=== PATIENT | male | born 1945 | race Caucasian/White ===

== ENCOUNTER 2017-06-09 01:19 | Inpatient (IN) | payer OTHER, MEDICARE ==
[2017-06-09] VITALS (8 sets, daily range): BP systolic 146–192; BP diastolic 84–109; PULSE 96–111; RESP 16–28; TEMP 97.8–99.2; O2SAT 94–97
[~2017-06-09] VITALS: Ht 167.6 cm; Wt 74.5 kg
[~2017-06-09 01:19] MED LIST: FLUMAZENIL 0.5 MG/5 ML VIAL IV PUSH PRN; LORazepam 2 MG TAB PO PRN; LORazepam 2 MG/ML VIAL IV PUSH PRN; NALOXONE HCL 0.4 MG/ML AMP IV PRN; SODIUM CHLORIDE 0.9% FLUSH 10 ML FLUSH IV FLUSH PRN
[2017-06-09] MEDS: MORPHINE SULFATE 4 MG/ML INJ IV PUSH PRN ×3 (02:34→17:53)
[2017-06-09] MEDS: NS + KCL 20 MEQ INJ 1,000 ML IV SCH (02:35)
[2017-06-09] MEDS: PIPERACIL-TAZO 3.375 GM PREMIX 50 ML IV SCH ×3 (06:35→17:36)
--- NOTE | 2017-06-09 08:59 | PD.CAR.PN ---
CVT Progress Note Subjective/Hospital Course: Referral received Full consult TF J Objective: Vital Signs Date Time Temp Pulse Resp B/P Pulse Ox O2 Delivery O2 Flow Rate FiO2 06/09/17 03:52 98.7 99 18 185/99 95 06/09/17 02:53 18 06/09/17 01:56 98.1 98 18 184/84 97 Trinh Enrique MD Jun 09, 2017 08:59
[2017-06-09] MEDS: SODIUM CHLORIDE 0.9% FLUSH 10 ML FLUSH IV FLUSH SCH ×2 (09:00→21:00)
[2017-06-09] MEDS: LORazepam 1 MG TAB PO PRN ×2 (09:37→17:52)
[2017-06-09] MEDS ORDERED: MORPHINE SULFATE 4 MG/ML INJ IV PUSH ONE (12:30)
[2017-06-09 12:44] LABS: BLOOD, URINE NEG (NEG); GLUCOSE,URINE NEG (NEG); KETONE, URINE 40 mg/dL (NEG); NITRITE,URINE NEG (NEG); PH, URINE 5.5 (5.0-8.5)
[2017-06-09 12:49] LABS: URINE COLOR AMBER (YELLW/STRAW)
[2017-06-09 12:51] LABS: COMMENT (UR) CULT NOT INDICATED; CULTURE IF INDICATED CULT NOT INDICATED
--- NOTE | 2017-06-09 13:18 | PD.CONS ---
HPI History of Present Illness This is a 72 year old male who presented to the [facility] for evaluation of abdominal pain. This began suddenly the day before yesterday and has progressively been worsening. He describes this as a sharp pain in his lower abdomen, more so on the right side. It does radiate to his back. He did not initially have any nausea or vomiting, but states that he did have an episode of vomiting earlier this am, nonbloody. He denies any nausea or vomiting. He denies any diarrhea, but states that he had small liquid stool. He has not had any rectal bleeding. He denies any fevers or chills. He denies any weight loss. He denies any heartburn or reflux. He has never had an egd or colonoscopy in the past. CT of the abdomen and pelvis with IV contrast (06/08/17)-----> Multifocal inflammatory changes of the right lower quadrant. There is wall thickening and adjacent inflammatory changes of the mid sigmiod colon. Most likely etiology for this finding is diverticulitis. Epicenter of inflammation there is either a prominent diverticulum or small abscess. Neoplasm also in the differential diagnosis. Circumferential wall thickening and prominent inflammatory changes are also seen at the distal ileum 10 cm proximal to the ileocecal valve. Differential diagnosis is infection and inflammatory bowel disease. Peripheral gas at the dependent portions of the cecum and transverse colon suggesting pseudo-pneumatosis of gas trapped between luminal fluid and the colon wall. No evidence of free air. No portal venous gas. Marked wall thickening of the distal esophagus. He was transferred to [facility]. He has been started on antibiotics and evaluated by GS, who requested GI evaluation. Of note, he denies any prior episodes of diverticulitis in the past. He does eat a lot of nuts. He does drink 6-7 beers per day. (Deb Bhandari) PFSH Past Medical History Hx cataracts Past Surgical History Cataract surgery (Deb Bhandari) Coded Allergies: Cultivated Oat Pollen (Verified Allergy, Severe, 06/08/17) Medications Allergies Coded Allergies Type Severity Reaction Last Updated Verified Cultivated Oat Pollen Allergy Severe 06/08/17 Yes Active Scripts Medications Dose Route/Sig Days Date Category No Active Prescriptions or Reported Medications Rx Family History No family hx of esophageal, gastric, or colorectal cancer. Social History Drinks 6-7 beers per day No tobacco use (+) MJ use. (Deb Bhandari APRIL) Review of Systems Constitutional: DENIES: Fever, Weight loss, Chills, Change in appetite Respiratory: DENIES: Cough Cardiovascular: DENIES: Chest pain Gastrointestinal: COMPLAINS OF: Abdominal pain, Nausea, Vomiting, DENIES: Black stools, Bloody stools, Constipation, Diarrhea, Heartburn, Hematemesis Genitourinary: COMPLAINS OF: Dysuria, DENIES: Urinary frequency, Urinary incontinence, Urgency Musculoskeletal: DENIES: Joint pain Integumentary: DENIES: Rash Neurologic: DENIES: Headache Psychiatric: DENIES: Confusion (BhandariDeb Idalia CHEN) GI Exam Vitals I&O Vital Signs Date Time Temp Pulse Resp B/P Pulse Ox O2 Delivery O2 Flow Rate FiO2 06/09/17 12:23 99 06/09/17 09:22 98.5 96 18 192/103 94 06/09/17 03:52 98.7 99 18 185/99 95 06/09/17 02:53 18 06/09/17 01:56 98.1 98 18 184/84 97 I/O 06/08/17 06/08/17 06/08/17 06/09/17 06/09/17 06/09/17 07:00 15:00 23:00 07:00 15:00 23:00 Intake Total 120 ml 500 ml Output Total 200 ml Balance -80 ml 500 ml Intake Oral 120 ml IV Total 500 ml Output Urine Total 200 ml # Voids 1 # Bowel Movements [address] of the abdomen and pelvis with IV contrast (06/08/17)-----> Multifocal inflammatory changes of the right lower quadrant. There is wall thickening and adjacent inflammatory changes of the mid sigmiod colon. Most likely etiology for this finding is diverticulitis. Epicenter of inflammation there is either a prominent diverticulum or small abscess. Neoplasm also in the differential diagnosis. Circumferential wall thickening and prominent inflammatory changes are also seen at the distal ileum 10 cm proximal to the ileocecal valve. Differential diagnosis is infection and inflammatory bowel disease. Peripheral gas at the dependent portions of the cecum and transverse colon suggesting pseudo-pneumatosis of gas trapped between luminal fluid and the colon wall. No evidence of free air. No portal venous gas. Marked wall thickening of the distal esophagus. Laboratory Test 06/09/17 11:45 Urine Color PASTOR Urine Turbidity CLEAR Urine pH 5.5 Urine Specific [place] 1.034 Urine Protein 30 mg/dL Urine Glucose (UA) NEG mg/dL Urine Ketones 40 mg/dL Urine Occult Blood NEG Urine Nitrite NEG Urine Bilirubin NEG Urine Urobilinogen 2.0 MG/DL Urine Leukocyte Esterase NEG Urine RBC 1 /hpf Urine WBC 1 /hpf Microscopic Urinalysis Comment CULT NOT INDICATED Physical Examination HEENT: Normocephalic; atraumatic; no jaundice. CHEST: Resp. even and unlabored, diminished bases CARDIAC: RRR ABDOMEN: Soft, nondistended, mild to mod tenderness lower abdomen; no hepatosplenomegaly; bowel sounds are present in all four quadrants. EXTREMITIES: No clubbing, cyanosis, or edema. SKIN: Normal; no rash; no jaundice. LPN OR MEDICAL ASSISTANT: No focal deficits; alert and oriented times three. (Deb Bhandari) Assessment and Plan Plan ASSESSMENT: - Abdominal pain with abnormal imaging consistent with probable acute diverticulitis. No prior episodes of diverticulitis, no hx of egd/colonoscopy. CT of the abdomen and pelvis with IV contrast (06/08/17)-----> Multifocal inflammatory changes of the right lower quadrant. There is wall thickening and adjacent inflammatory changes of the mid sigmiod colon. Most likely etiology for this finding is diverticulitis. Epicenter of inflammation there is either a prominent diverticulum or small abscess. Neoplasm also in the differential diagnosis. Circumferential wall thickening and prominent inflammatory changes are also seen at the distal ileum 10 cm proximal to the ileocecal valve. Differential diagnosis is infection and inflammatory bowel disease. Peripheral gas at the dependent portions of the cecum and transverse colon suggesting pseudo-pneumatosis of gas trapped between luminal fluid and the colon wall. No evidence of free air. No portal venous gas. Marked wall thickening of the distal esophagus. GS following, Clear liquids. Zosyn. - Abn. imaging of esophagus on CT with marked wall thickening of distal esophagus. He denies any hx of GERD. He has not had any decreased appetite or weight loss. Never had an EGD. Will add PPI. - Leukocytosis, mild. WBC 11.2. Zosyn. - ETOH abuse. 6-7 beers daily. PLAN: - Clear liquids - Protonix 40mg IV daily - Cont. Zosyn - Cont. IVF - Monitor labs - GS following - Tumor markers pending. - Will need EGD/Colonoscopy once diverticulitis treated - Pt seen and examined by Dr. James and myself and this note is written on his behalf (Deb Bhandari) Physician Comments Patient seen and examined Agree with above Continue with current supportive care Monitor labs Patient will need a colonoscopy a few weeks down the road once the diverticulitis has healed Plan I am concerned about the thickening of the distal esophagus and will recommend an EGD prior to discharge may be in a day or 2 (Ministerio James MD) Deb Bhandari Jun 09, 2017 13:18 Ministerio James MD Jun 09, 2017 21:53
[2017-06-09] MEDS ORDERED: PANTOPRAZOLE SODIUM 40 MG VIAL IV PUSH SCH (13:45)
[2017-06-09] MEDS: PANTOPRAZOLE SODIUM 40 MG VIAL IV PUSH SCH (13:49)
--- NOTE | 2017-06-09 13:57 | MB ---
cc: TRINH DUMONT MD DATE OF CONSULTATION: 06/09/2017 REASON FOR CONSULTATION Acute descending and ascending colon diverticulitis, pneumatosis intestinalis, severe abdominal pain, hypertension. HISTORY OF PRESENT DISEASE This 72-year-old male presented initially to the [place] ER with abdominal pain. The patient states the pain became progressively worse over the last few days, mainly in the left and right abdomen, right more so. The patient vomited in the morning of admission and now feels better. He had some diarrhea prior to arrival. The patient denies any weight loss. He never had a colonoscopy or upper endoscopy. The question arises about the nature of his symptoms. PAST MEDICAL HISTORY The past medical history is allegedly negative. PAST SURGICAL HISTORY The patient had cataract surgery. SOCIAL HISTORY The patient states he does not smoke, but drinks about a six-pack a day. PHYSICAL EXAMINATION GENERAL: A 72-year-old male in no acute distress. HEENT: Normocephalic. No trauma to the head. Pupils are equally reactive. Extraocular muscles intact. NECK: Supple. Bilateral carotid pulses. Faint right-sided bruit. CHEST: Bilateral breath sounds. HEART: Regular rhythm. ABDOMEN: Soft. On palpation very tender in the right lower quadrant where there is no guarding but there is some rebound. The left lower quadrant is tender and soft, however, there is some mild rebound there as well. The upper abdomen is benign on palpation. No masses are noted. On percussion the patient is tympanic, clearly dilated bowel and ileus. Groins appear to be normal. EXTREMITIES: The patient has palpable femoral pulses, palpable posterior tibial pulses and dorsalis pedis. Doppler'able popliteal. No signs of acute vascular deficit. NEUROLOGIC: Grossly the patient is intact. BACK: Normal. IMPRESSION AND RECOMMENDATIONS I reviewed the laboratory and diagnostic procedures. The gentleman comes with an unusual presentation of bilateral abdominal pain and some rebound as well as mild guarding. The patient on work-up is found to have acute colitis of the left and right colon, possibly from diverticulitis, but possibly from other causes, likely diverticular on the left and I am not sure what the right side may be. Differential diagnosis includes nonspecific colitis, yersinia, Shigella or Salmonella and such and of course granulomatous disease. At this point the patient should be managed conservatively and placed on antibiotics. Pneumatosis intestinalis is occasionally seen in patients with ischemic bowel but in this case this is not a problem. This is pseudo-pneumatosis with air trapped against the wall of the intestine rather than in the very intestinal wall. The patient may a variant of inflammatory bowel disease such as ulcerative colitis with infection and hence the air. He is not a patient with impending rupture. Therefore, the antibiotic therapy is indicated and best case scenario the patient will receive about 2 weeks of antibiotics and then should have an elective colonoscopy to evaluate the intestine. In the worse case scenario the patient may initially respond to antibiotics but then never get completely better. At that point the patient should also have a colonoscopy which then would be followed by surgery. In the worst case scenario this could turn into fulminant colitis which would require immediate surgery and have to watch the patient carefully for the same. The patient should at least be for 4 or 5 days on intravenous antibiotics in the hospital, and then if he does really well can be discharged. I will follow the patient with you, but there is little question in my mind that eventually the patient will require surgery for this and hopefully on an elective basis. I thank you very much for your referral. I will continue to follow the patient. Critical care time 38 minutes. Trinh ALMONTE /1:29 PM /1:38 PM LARISSA
--- NOTE | 2017-06-09 14:20 | HHI.HP ---
HPI Service [facility] Primary Care Physician Admission Diagnosis Diagnoses: (1) Diverticulitis Chief Complaint: abdominal pain Travel History International Travel<30 Days: No Contact w/Intl Traveler <30 Da: No Traveled to Known Affected Are: No History of Present Illness Written by Karen Dhaliwal, acting as scribe for Dr. Chavez on 06/09/17 at 14:41. This note was transcribed by scribe CLAUDIA Bernal. I, Dr. Nash Chavez personally performed the history, physical exam, and medical decision making; and confirmed the accuracy of the information in the transcribed note. Authenticated by Dr. Nash Chavez on 06/09/17 at 17:22. 72-year-old male with no significant past medical history, presents with a 1 week history of abdominal pain. He locates the pain mostly to the RLQ, described as sharp stabbing 10/10 pain. He denies any fevers or chills. He had some nausea and vomited x1 at home. He reports occasional diarrhea but mostly normal nonbloody dark brown stools. He reports more frequent BMs recently, had 3 BMs since his arrival to the hospital. The patient denies any chest pain, palpitations, or shortness of breath. He does report occasional left facial numbness; denies headache, lightheadedness, or dizziness. He occasionally has some difficulty urinating, but denies any burning or hematuria. The patient states he's otherwise fairly healthy and he hasn't been in the hospital since age 7. He denies ever having an EGD or colonoscopy. He denies taking any medications on a regular basis. He does drink alcohol, 4-6beers daily. He also smokes marijuana occasionally. Review of Systems Except as stated in HPI: all other systems reviewed are Neg Past Family Social History Past Medical History Cataracts Past Surgical History Bilateral Cataract surgery Reported Medications Denies taking any medications on a regular basis. Allergies: Coded Allergies: Cultivated Oat Pollen (Verified Allergy, Severe, 06/08/17) Active Ordered Medications Current Medications Medications (Trade) Dose Ordered Sig/Paolo Route Start Time Stop Time Status Last Admin (NS Flush) 2 ml UNSCH PRN IV FLUSH 06/09/17 00:30 (NS Flush) 2 ml BID IV FLUSH 06/09/17 09:00 (Zofran Inj) 4 mg Q6H PRN IVP 06/09/17 00:30 (Narcan Inj) 0.4 mg UNSCH PRN IV 06/09/17 00:30 (Romazicon Inj) 0.2 mg Q1M PRN IV PUSH 06/09/17 00:30 (Ativan) 1 mg Q4H PRN PO 06/09/17 00:30 06/09/17 09:37 (Ativan Inj) 1 mg Q4H PRN IV PUSH 06/09/17 00:30 (Ativan) 2 mg Q2H PRN PO 06/09/17 00:30 (Ativan Inj) 2 mg Q2H PRN IV PUSH 06/09/17 00:30 (Ativan Inj) 2 mg Q1H PRN IV PUSH 06/09/17 00:30 Lorazepam 2 mg 2 mg Q15M PRN IV PUSH 06/09/17 00:30 Piperacillin Sod/ Tazobactam Sod 50 ml @ 100 mls/hr Q6HR IV 06/09/17 06:00 06/09/17 13:48 (NS + KCl 20 Meq Inj) 1,000 ml @ 100 mls/hr Q10H IV 06/09/17 00:45 06/09/17 02:35 (Pneumovax-23 Inj) 25 mcg ONCE ONCE IM 06/10/17 09:00 06/10/17 09:01 (Protonix Inj) 40 mg Q24H IV PUSH 06/09/17 11:00 06/09/17 13:49 (Morphine Inj) 4 mg Q3H PRN IV PUSH 06/09/17 16:00 Family History Mother age 39 with brain tumor Father age 29 Social History Denies tobacco use Alcohol use, Drinks 4-6 beers per day Smokes marijuana, denies any other illicit drug use Spent 6years of childhood in orphanage after parents Worked mostly in [employer] Highest education - GED Physical Exam Vital Signs Vital Signs Date Time Temp Pulse Resp B/P Pulse Ox O2 Delivery O2 Flow Rate FiO2 06/09/17 12:23 99 06/09/17 09:22 98.5 96 18 192/103 94 06/09/17 03:52 98.7 99 18 185/99 95 06/09/17 02:53 18 06/09/17 01:56 98.1 98 18 184/84 97 Physical Exam GENERAL: Well-nourished, well-developed pleasant elderly male patient in [facility]. SKIN: Warm and dry. No rash. Diffuse vitiligo. HEAD: Normocephalic. Atraumatic. EYES: Pupils equal and round. No scleral icterus. No injection or drainage. ENT: No nasal bleeding or discharge. Mucous membranes pink and moist. NECK: Supple. Trachea midline. CARDIOVASCULAR: Regular rate and rhythm. S1, S2 noted. No murmur appreciated. RESPIRATORY: No accessory muscle use. Clear to auscultation. Breath sounds equal bilaterally. GASTROINTESTINAL: Abdomen soft, slightly distended, diffuse TTP worse at RLQ. Normoactive bowel sounds x4. MUSCULOSKELETAL: No obvious deformities. Extremities without clubbing, cyanosis , or edema. NEUROLOGICAL: Awake and alert. No obvious cranial nerve deficits. Motor grossly within normal limits. Normal speech. PSYCHIATRIC: Appropriate mood and affect; insight and judgment normal. Laboratory Laboratory Tests Test 06/09/17 11:45 Urine Color PASTOR Urine Turbidity CLEAR Urine pH 5.5 Urine Specific [place] 1.034 Urine Protein 30 Urine Glucose (UA) NEG Urine Ketones 40 Urine Occult Blood NEG Urine Nitrite NEG Urine Bilirubin NEG Urine Urobilinogen 2.0 Urine Leukocyte Esterase NEG Urine RBC 1 Urine WBC 1 Microscopic Urinalysis Comment CULT NOT INDICATED Assessment and Plan Problem List: (1) Diverticulitis ICD Code: K57.92 Status: Acute Assessment and Plan 72-year-old male with no significant past medical history, presents with a 1 week history of abdominal pain. Acute Diverticulitis: Mild leukocytosis WBC 11.2K. Lipase and LFTs wnl. CT abd/ pelvis images reviewed, shows Multifocal inflammatory changes of the RLQ; wall thickening and adjacent inflammatory changes of the mid sigmiod colon; Epicenter of inflammation there is either a prominent diverticulum or small abscess; Neoplasm also in the differential diagnosis. Circumferential wall thickening and prominent inflammatory changes are also seen at the distal ileum 10 cm proximal to the ileocecal valve. DDx is infection and inflammatory bowel disease. Peripheral gas at the dependent portions of the cecum and transverse colon suggesting pseudo-pneumatosis of gas trapped between luminal fluid and the colon wall. No evidence of free air. No portal venous gas. Marked wall thickening of the distal esophagus. -check CA 19-9 and CEA -Continue antibiotics with IV Zosyn -clear liquid diet -start on IV protonix 40mg daily -pain control with IV morphine prn -antiemetics prn -Consult GI and General Surgery, appreciate recommendations -Patient will need EGD/colonoscopy after resolution of diverticulitis Alcohol Abuse: drinks 4-6 beers daily. States "I like beer, why would I quit." -counseled on cessation -[facility] protocol -monitor for withdrawal -Continue IV thiamine/folate/multivitamin Hypertension: not on medications. BP consistently elevated in 180s/100s. Possibly compounded by pain. -start IV Vasotec prn -monitor BP, adjust antihypertensives as needed Hypokalemia/Hyponatremia: suspect secondary to dehydration with recent vomiting/ diarrhea -given KCl replacement and IVF with NS -repeat labs -monitor electrolytes, replaced as needed DVT Prophylaxis: teds/SCDs Discussed Condition With Patient, RN Physician Certification 2 Midnight Certification Type: Admission for Inpatient Services Order for Inpatient Services The services are ordered in accordance with Medicare regulations or non- Medicare payer requirements, as applicable. In the case of services not specified as inpatient-only, they are appropriately provided as inpatient services in accordance with the 2-midnight benchmark. Estimated LOS (days): 3 days is the estimated time the patient will need to remain in the hospital, assuming treatment plan goals are met and no additional complications. Post-Hospital Plan: Home Karen Dhaliwal PA-C Jun 09, 2017 14:19 Maura Chavez DO Jun 09, 2017 17:22
[2017-06-09] MEDS: ENALAPRILAT 1.25 MG/ML VIAL IV PUSH PRN (17:54)
[2017-06-09] MEDS: THIAMINE INJ 100 MG in SODIUM CHLORIDE 0.9% INJ 100 ML IV SCH (18:24)
[2017-06-09] MEDS: MULTIVITAMIN INJ 10 ML, FOLIC ACID INJ 1 MG in SODIUM CHLORID 0.9% 500 ML INJ 500 ML IV SCH (21:42)
[2017-06-10] MEDS: PIPERACIL-TAZO 3.375 GM PREMIX 50 ML IV SCH ×5 (00:36→23:29)
[2017-06-10] MEDS: ONDANSETRON HCL 4 MG/2 ML VIAL IVP PRN (00:52)
[2017-06-10] MEDS: MORPHINE SULFATE 4 MG/ML INJ IV PUSH PRN ×6 (00:53→23:28)
[2017-06-10] MEDS: NS + KCL 20 MEQ INJ 1,000 ML IV SCH (03:32)
[2017-06-10 03:34] VITALS: BP 170/96; PULSE 91; RESP 18; TEMP 98.4; O2SAT 96
[2017-06-10 07:42] LABS: AUTOMATED NEUTROPHIL # 8.2 TH/MM3 (1.8-7.7); BASOPHIL % 0.2 % (0.0-2.0); EOSINOPHIL % 0.1 % (0.0-4.0); HEMATOCRIT 38.7 % (39.0-51.0); HEMO FLAGS DIFF FINAL; LYMPH % 5.3 % (9.0-44.0); LYMPHOCYTE # 0.5 TH/MM3 (1.0-4.8); MEAN CELL VOLUME 94.6 FL (80.0-100.0); MEAN CORPUSCULAR HEMOGLOBIN 32.1 PG (27.0-34.0); MONO % 5.7 % (0.0-8.0); NEUT % 88.7 % (16.0-70.0); PLATELET COUNT 354 TH/MM3 (150-450); RED BLOOD COUNT 4.09 MIL/MM3 (4.50-5.90); RED CELL DISTRIBUTION WIDTH 13.3 % (11.6-17.2); WHITE BLOOD COUNT 9.3 TH/MM3 (4.0-11.0)
[2017-06-10 08:05] LABS: BICARBONATE 22.2 MEQ/L (21.0-32.0); POTASSIUM 3.4 MEQ/L (3.5-5.1)
[2017-06-10 08:36] VITALS: BP 189/106; PULSE 88; RESP 19; TEMP 98.2; O2SAT 95
[2017-06-10] MEDS: THIAMINE HCL 100 MG TAB PO SCH (08:46)
[2017-06-10] MEDS: SODIUM CHLORIDE 0.9% FLUSH 10 ML FLUSH IV FLUSH SCH ×2 (08:47→20:31)
[2017-06-10] MEDS: ENALAPRILAT 1.25 MG/ML VIAL IV PUSH PRN (08:49)
[2017-06-10] MEDS ORDERED: PNEUMOCOCCAL POLYVALENT INJ 25 MCG/0.5 ML SYR IM ONE (09:00)
[2017-06-10] MEDS ORDERED: INFLUENZA VIRUS VACCINE (QUADRIVALENT) 0.5 ML SYR IM ONE (09:00)
[2017-06-10] MEDS ORDERED: POTASSIUM CHLORIDE 20 MEQ CONTROLLED RELEASE TAB PO ONE (11:00)
--- NOTE | 2017-06-10 11:30 | HHI.PR ---
Subjective Remarks Follow up for diverticulitis. The patient reports not feeling well today. He reports 10/10 RLQ sharp stabbing abdominal pain. He reports nausea and 1 episode of vomiting after breakfast this morning. Denies fevers/chills. He had a normal formed nonbloody BM this morning. He also complains of persistent hiccups. He denies any chest pain or shortness of breath. Denies any other medical complaints at this time. Objective Vitals Vital Signs Date Time Temp Pulse Resp B/P Pulse Ox O2 Delivery O2 Flow Rate FiO2 06/10/17 08:36 98.2 88 19 189/106 95 06/10/17 03:34 98.4 91 18 170/96 96 06/09/17 20:35 97.8 101 20 154/90 96 06/09/17 18:44 99.2 103 16 146/90 95 06/09/17 15:10 183/106 06/09/17 15:02 98.8 111 28 187/109 94 06/09/17 12:23 99 I/O 06/09/17 06/09/17 06/09/17 06/10/17 06/10/17 06/10/17 07:00 15:00 23:00 07:00 15:00 23:00 Intake Total 120 ml 500 ml 240 ml 1100 ml Output Total 200 ml Balance -80 ml 500 ml 240 ml 1100 ml Intake Oral 120 ml 240 ml IV Total 500 ml 1100 ml Output Urine Total 200 ml # Voids 1 2 # Bowel Movements 1 3 Result Diagram: 06/10/17 0645 06/10/17 0645 Objective Remarks GENERAL: Well-nourished, well-developed pleasant elderly male patient in [facility]. SKIN: Warm and dry. No rash. Diffuse vitiligo. HEENT: Normocephalic. Atraumatic. Pupils equal and round. Mucous membranes pink and moist. CARDIOVASCULAR: Regular rate and rhythm. S1, S2 noted. No murmur appreciated. RESPIRATORY: No accessory muscle use. Clear to auscultation. Breath sounds equal bilaterally. GASTROINTESTINAL: Abdomen soft, slightly distended, diffuse TTP worse at RLQ. Normoactive bowel sounds x4. MUSCULOSKELETAL: No obvious deformities. Extremities without clubbing, cyanosis , or edema. NEUROLOGICAL: Awake and alert. No obvious cranial nerve deficits. Motor grossly within normal limits. Normal speech. PSYCHIATRIC: Appropriate mood and affect; insight and judgment normal. Medications and IVs Current Medications Medications (Trade) Dose Ordered Sig/Paolo Route Start Time Stop Time Status Last Admin (NS Flush) 2 ml UNSCH PRN IV FLUSH 06/09/17 00:30 (NS Flush) 2 ml BID IV FLUSH 06/09/17 09:00 (Zofran Inj) 4 mg Q6H PRN IVP 06/09/17 00:30 06/10/17 00:52 (Narcan Inj) 0.4 mg UNSCH PRN IV 06/09/17 00:30 (Romazicon Inj) 0.2 mg Q1M PRN IV PUSH 06/09/17 00:30 (Ativan) 1 mg Q4H PRN PO 06/09/17 00:30 06/09/17 17:52 (Ativan Inj) 1 mg Q4H PRN IV PUSH 06/09/17 00:30 (Ativan) 2 mg Q2H PRN PO 06/09/17 00:30 (Ativan Inj) 2 mg Q2H PRN IV PUSH 06/09/17 00:30 (Ativan Inj) 2 mg Q1H PRN IV PUSH 06/09/17 00:30 Lorazepam 2 mg 2 mg Q15M PRN IV PUSH 06/09/17 00:30 Piperacillin Sod/ Tazobactam Sod 50 ml @ 100 mls/hr Q6HR IV 06/09/17 06:00 06/10/17 06:17 (NS + KCl 20 Meq Inj) 1,000 ml @ 100 mls/hr Q10H IV 06/09/17 00:45 06/10/17 03:32 (Protonix Inj) 40 mg Q24H IV PUSH 06/09/17 11:00 06/09/17 13:49 Morphine Sulfate 4 mg 4 mg Q3H PRN IV PUSH 06/09/17 16:00 06/10/17 08:48 Multivitamins 10 ml/Folic Acid 1 mg/Sodium Chloride 510.2 ml @ 125 mls/hr Q24H IV 06/09/17 17:00 06/14/17 16:59 06/09/17 21:42 (Thiamine Inj/NS Inj) 101 ml @ 100 mls/hr Q24H IV 06/09/17 17:00 06/12/17 16:59 06/09/17 18:24 (Vitamin B1) 100 mg DAILY PO 06/10/17 09:00 06/10/17 08:46 (Vasotec Inj) 1.25 mg Q6H PRN IV PUSH 06/09/17 16:00 06/10/17 08:49 (Prinivil) 10 mg DAILY PO 06/10/17 11:00 (Mag-Al Plus Susp Liq) 30 ml ONCE ONCE PO 06/10/17 12:15 06/10/17 12:16 UNV (Mag-Al Plus Susp Liq) 30 ml Q6H PRN PO 06/10/17 11:15 UNV A/P Problem List: (1) Diverticulitis ICD Code: K57.92 Status: Acute Assessment and Plan 72-year-old male with no significant past medical history, presents with a 1 week history of abdominal pain. Acute Diverticulitis: Mild leukocytosis WBC 11.2K. Lipase and LFTs wnl. CT abd/ pelvis images reviewed, shows Multifocal inflammatory changes of the RLQ; wall thickening and adjacent inflammatory changes of the mid sigmoid colon; Epicenter of inflammation there is either a prominent diverticulum or small abscess; Neoplasm also in the differential; Circumferential wall thickening and prominent inflammatory changes are also seen at the distal ileum 10 cm proximal to the ileocecal valve. DDx is infection and inflammatory bowel disease. Peripheral gas at the dependent portions of the cecum and transverse colon suggesting pseudo-pneumatosis of gas trapped between luminal fluid and the colon wall. No evidence of free air. No portal venous gas. Marked wall thickening of the distal esophagus. -check tumor markers, CA 19-9 and CEA -Continue antibiotics with IV Zosyn -clear liquid diet -start on IV protonix 40mg daily -supportive treatment with IVF, antiemetics prn, and pain control with IV morphine prn, mylanta prn dyspepsia -Consult GI and General Surgery, appreciate recommendations -Patient will likely undergo EGD in 1-2 days for further evaluation of marked wall thickening of distal esophagus seen on imaging -Will also need colonoscopy after resolution of diverticulitis Alcohol Abuse: drinks 4-6 beers daily. States "I like beer, why would I quit." -counseled on cessation -[facility] protocol -monitor for withdrawal -Continue IV thiamine/folate/multivitamin Hypertension: not on medications. BP consistently elevated in 180s/100s. Possibly compounded by pain. -IV Vasotec prn -monitor BP, adjust antihypertensives as needed -BP still elevated, start on lisinopril 10mg daily Hypokalemia/Hyponatremia: suspect secondary to dehydration with recent vomiting/ diarrhea -given KCl replacement and IVF with NS -monitor electrolytes, replaced as needed DVT Prophylaxis: teds/SCDs Discharge Planning Discharge pending further clinical improvement. Karen Dhaliwal PA-C Jun 10, 2017 11:30 am
[2017-06-10] MEDS: PANTOPRAZOLE SODIUM 40 MG VIAL IV PUSH SCH (11:33)
[2017-06-10] MEDS: LISINOPRIL 10 MG TAB PO SCH (11:34)
[2017-06-10 11:41] VITALS: BP 175/96; PULSE 97; RESP 19; TEMP 98.7; O2SAT 96
[2017-06-10] MEDS ORDERED: ALUMINUM/MAGNESIUM/SIMETH 30 ML CUP PO ONE (12:15)
--- NOTE | 2017-06-10 12:53 | PD.CAR.PN ---
CVT Progress Note Subjective/Hospital Course: Referral received Full consult TF J 06/10/17 Abdomen is soft patient states more tender in the right lower quadrant. No guarding however patient does have rebound tenderness Leukocytosis resolved The primary diagnosis seems to be somewhat unclear. We'll patient may have left sided diverticulitis this pattern of presentation is usually associated with pancolitis either infectious or related to later presentation of some sort of granulomatous disease like ulcerative colitis. All in all when everything calms down the patient will need colonoscopy with biopsies to establish the actual nature of this problem Based on the final diagnosis will best be able to decide when and in what fashion to proceed with surgery. Would continue IV antibiotics Objective: Vital Signs Date Time Temp Pulse Resp B/P Pulse Ox O2 Delivery O2 Flow Rate FiO2 06/10/17 11:41 98.7 97 19 175/96 96 06/10/17 08:36 98.2 88 19 189/106 95 06/10/17 03:34 98.4 91 18 170/96 96 06/09/17 20:35 97.8 101 20 154/90 96 06/09/17 18:44 99.2 103 16 146/90 95 06/09/17 15:10 183/106 06/09/17 15:02 98.8 111 28 187/109 94 Labs: Laboratory Tests Test 06/10/17 06/10/17 06:40 06:45 Carcinoembryonic Antigen 2.7 NG/ML (0.2-5.0) CA 19-9 Antigen 7.3 U/ML (0.0-35.0) White Blood Count 9.3 TH/MM3 (4.0-11.0) Red Blood Count 4.09 MIL/MM3 (4.50-5.90) Hemoglobin 13.2 GM/DL (13.0-17.0) Hematocrit 38.7 % (39.0-51.0) Mean Corpuscular Volume 94.6 FL (80.0-100.0) Mean Corpuscular Hemoglobin 32.1 PG (27.0-34.0) Mean Corpuscular Hemoglobin 34.0 % Concent (32.0-36.0) Red Cell Distribution Width 13.3 % (11.6-17.2) Platelet Count 354 TH/MM3 (150-450) Mean Platelet Volume 7.5 FL (7.0-11.0) Neutrophils (%) (Auto) 88.7 % (16.0-70.0) Lymphocytes (%) (Auto) 5.3 % (9.0-44.0) Monocytes (%) (Auto) 5.7 % (0.0-8.0) Eosinophils (%) (Auto) 0.1 % (0.0-4.0) Basophils (%) (Auto) 0.2 % (0.0-2.0) Neutrophils # (Auto) 8.2 TH/MM3 (1.8-7.7) Lymphocytes # (Auto) 0.5 TH/MM3 (1.0-4.8) Monocytes # (Auto) 0.5 TH/MM3 (0-0.9) Eosinophils # (Auto) 0.0 TH/MM3 (0-0.4) Basophils # (Auto) 0.0 TH/MM3 (0-0.2) CBC Comment DIFF FINAL Differential Comment Sodium Level 134 MEQ/L (136-145) Potassium Level 3.4 MEQ/L (3.5-5.1) Chloride Level 102 MEQ/L (98-107) Carbon Dioxide Level 22.2 MEQ/L (21.0-32.0) Anion Gap 10 MEQ/L (5-15) Blood Urea Nitrogen 13 MG/DL (7-18) Creatinine 0.54 MG/DL (0.60-1.30) Estimat Glomerular Filtration 150 ML/MIN Rate (>89) Random Glucose 120 MG/DL (74-106) Calcium Level 8.1 MG/DL (8.5-10.1) Result Diagram: 06/10/17 0645 06/10/17 0645 Trinh Enrique MD Jun 10, 2017 12:53
[2017-06-10 13:13] VITALS: BP 175/95; PULSE 85; RESP 18; TEMP 98; O2SAT 95
--- NOTE | 2017-06-10 15:53 | HHI.GIFU ---
Subjective Remarks Pt resting in bed. Nurse at bedside. Pt says he still has abd pain but there has been some improvement. + formed BM today, no blood. (Lanie Loomis ) Objective Vitals I&O Vital Signs Date Time Temp Pulse Resp B/P Pulse Ox O2 Delivery O2 Flow Rate FiO2 06/10/17 11:41 98.7 97 19 175/96 96 06/10/17 08:36 98.2 88 19 189/106 95 06/10/17 03:34 98.4 91 18 170/96 96 06/09/17 20:35 97.8 101 20 154/90 96 06/09/17 18:44 99.2 103 16 146/90 95 I/O 06/09/17 06/09/17 06/09/17 06/10/17 06/10/17 06/10/17 07:00 15:00 23:00 07:00 15:00 23:00 Intake Total 120 ml 500 ml 240 ml 1100 ml Output Total 200 ml Balance -80 ml 500 ml 240 ml 1100 ml Intake Oral 120 ml 240 ml IV Total 500 ml 1100 ml Output Urine Total 200 ml # Voids 1 2 # Bowel Movements 1 3 Laboratory Laboratory Tests Test 06/10/17 06/10/17 06:40 06:45 Carcinoembryonic Antigen 2.7 CA 19-9 Antigen 7.3 White Blood Count 9.3 Red Blood Count 4.09 Hemoglobin 13.2 Hematocrit 38.7 Mean Corpuscular Volume 94.6 Mean Corpuscular Hemoglobin 32.1 Mean Corpuscular Hemoglobin 34.0 Concent Red Cell Distribution Width 13.3 Platelet Count 354 Mean Platelet Volume 7.5 Neutrophils (%) (Auto) 88.7 Lymphocytes (%) (Auto) 5.3 Monocytes (%) (Auto) 5.7 Eosinophils (%) (Auto) 0.1 Basophils (%) (Auto) 0.2 Neutrophils # (Auto) 8.2 Lymphocytes # (Auto) 0.5 Monocytes # (Auto) 0.5 Eosinophils # (Auto) 0.0 Basophils # (Auto) 0.0 CBC Comment DIFF FINAL Differential Comment Sodium Level 134 Potassium Level 3.4 Chloride Level 102 Carbon Dioxide Level 22.2 Anion Gap 10 Blood Urea Nitrogen 13 Creatinine 0.54 Estimat Glomerular Filtration 150 Rate Random Glucose 120 Calcium Level 8.1 Physical Exam HEENT: PERRLt; normocephalic; atraumatic; no jaundice. CHEST: CTA CARDIAC: RRR. ABDOMEN: Soft, nondistended, nontender; no hepatosplenomegaly; bowel sounds are present in all four quadrants. EXTREMITIES: No clubbing, cyanosis, or edema. SKIN: Normal; no rash; no jaundice. WOOL DYER: No focal deficits; alert and oriented times three. (Lanie Loomis) Assessment and Plan Plan ASSESSMENT: - Abdominal pain with abnormal imaging consistent with probable acute diverticulitis. No prior episodes of diverticulitis, no hx of egd/colonoscopy. CT of the abdomen and pelvis with IV contrast (06/08/17)-----> Multifocal inflammatory changes of the right lower quadrant. There is wall thickening and adjacent inflammatory changes of the mid sigmiod colon. Most likely etiology for this finding is diverticulitis. Epicenter of inflammation there is either a prominent diverticulum or small abscess. Neoplasm also in the differential diagnosis. Circumferential wall thickening and prominent inflammatory changes are also seen at the distal ileum 10 cm proximal to the ileocecal valve. Differential diagnosis is infection and inflammatory bowel disease. Peripheral gas at the dependent portions of the cecum and transverse colon suggesting pseudo-pneumatosis of gas trapped between luminal fluid and the colon wall. No evidence of free air. No portal venous gas. Marked wall thickening of the distal esophagus. GS following, Clear liquids. - Abn. imaging of esophagus on CT with marked wall thickening of distal esophagus. He denies any hx of GERD. He has not had any decreased appetite or weight loss. Never had an EGD. tumor markers unremarkable - Leukocytosis, mild. improved Zosyn. - ETOH abuse. 6-7 beers daily. PLAN: - EGD tomorrow - obtain consents - NPO after midnight - Clear liquids - continue IV protonix - Cont. Zosyn - Cont. IVF - Monitor labs - GS following - colonoscopy when diverticulitis resolved - Pt seen and examined by Dr. James and myself and this note is written on his behalf (Lanie Loomis) Physician Comments Patient seen and examined Agree with above Continue current supportive care Monitor labs EGD tomorrow (Ministerio James MD) Lanie Loomis Jun 10, 2017 15:53 Ministerio James MD Jun 10, 2017 19:25
[2017-06-10 16:00] VITALS: BP 158/89; PULSE 96; RESP 18; TEMP 98.5; O2SAT 96
[2017-06-10] MEDS: THIAMINE INJ 100 MG in SODIUM CHLORIDE 0.9% INJ 100 ML IV SCH (16:56)
[2017-06-10] MEDS ORDERED: ALUMINUM/MAGNESIUM/SIMETH 30 ML CUP PO PRN (17:00)
[2017-06-10 20:00] VITALS: BP 167/87; PULSE 93; RESP 19; TEMP 98.7; O2SAT 94
[2017-06-10] MEDS: MULTIVITAMIN INJ 10 ML, FOLIC ACID INJ 1 MG in SODIUM CHLORID 0.9% 500 ML INJ 500 ML IV SCH (20:31)
[2017-06-11] VITALS (7 sets, daily range): BP systolic 156–193; BP diastolic 91–108; PULSE 67–90; RESP 18–20; TEMP 98–99.7; O2SAT 92–94
[2017-06-11] MEDS: MORPHINE SULFATE 4 MG/ML INJ IV PUSH PRN ×4 (02:47→17:55)
[2017-06-11] MEDS: NS + KCL 20 MEQ INJ 1,000 ML IV SCH ×3 (02:47→22:49)
[2017-06-11] MEDS: PIPERACIL-TAZO 3.375 GM PREMIX 50 ML IV SCH ×3 (05:08→17:55)
[2017-06-11] MEDS: LISINOPRIL 10 MG TAB PO SCH (08:08)
[2017-06-11] MEDS: THIAMINE HCL 100 MG TAB PO SCH (08:08)
[2017-06-11] MEDS: SODIUM CHLORIDE 0.9% FLUSH 10 ML FLUSH IV FLUSH SCH ×2 (08:08→20:31)
[2017-06-11] MEDS: PANTOPRAZOLE SODIUM 40 MG VIAL IV PUSH SCH (08:09)
[2017-06-11] MEDS: ONDANSETRON HCL 4 MG/2 ML VIAL IVP PRN (08:12)
[2017-06-11 09:20] LABS: AUTOMATED NEUTROPHIL # 7.1 TH/MM3 (1.8-7.7); BASOPHIL % 0.3 % (0.0-2.0); EOSINOPHIL % 0.3 % (0.0-4.0); HEMATOCRIT 35.9 % (39.0-51.0); HEMO FLAGS DIFF FINAL; LYMPH % 6.4 % (9.0-44.0); LYMPHOCYTE # 0.5 TH/MM3 (1.0-4.8); MEAN CELL VOLUME 94.3 FL (80.0-100.0); MEAN CORPUSCULAR HEMOGLOBIN 32.4 PG (27.0-34.0); MEAN CORPUSCULAR HGB CONC 34.3 % (32.0-36.0); MONO % 9.1 % (0.0-8.0); NEUT % 83.9 % (16.0-70.0); PLATELET COUNT 362 TH/MM3 (150-450); RED CELL DISTRIBUTION WIDTH 13.3 % (11.6-17.2); WHITE BLOOD COUNT 8.5 TH/MM3 (4.0-11.0)
[2017-06-11 09:43] LABS: BICARBONATE 22.4 MEQ/L (21.0-32.0); MAGNESIUM 2.3 MG/DL (1.5-2.5); POTASSIUM 3.5 MEQ/L (3.5-5.1)
[2017-06-11 09:48] LABS: TOTAL BILIRUBIN ADULT 0.7 MG/DL (0.2-1.0)
--- NOTE | 2017-06-11 11:07 | PD.PROCEDR ---
GI Procedure REFERRING PHYSICIAN nate PROCEDURE PERFORMED EGD with biopsy INDICATION FOR PROCEDURE Abnormal imaging showing thickening of the distal esophagus PROCEDURE: The procedure, risks and benefits were discussed with Mr. Barksdale and informed consent was obtained. Anesthesia sedated him with Diprivan. He was placed in the left lateral decubitus position. EGD: The Pentax videoscope was introduced through the oropharynx and advanced to the second portion of the duodenum under direct visualization. Retroflexion was performed in the stomach. FINDINGS: Esophagus there was distal esophageal mucosal erythema with friability suggestive of reflux esophagitis this was biopsied otherwise the esophagus was unremarkable Stomach was unremarkable with normal limits Duodenum was also normal ESTIMATED BLOOD LOSS: None SPECIMENS REMOVED: Esophageal biopsy COMPLICATIONS: None IMPRESSION: Distal esophagitis PLAN: Await biopsy Continue PPI Follow-up with GI post discharge Ministerio James MD Jun 11, 2017 11:07
[2017-06-11] MEDS ORDERED: PROPOFOL 200 MG/20 ML AMP IV PUSH ONE (11:09)
--- NOTE | 2017-06-11 13:29 | PD.CAR.PN ---
CVT Progress Note Subjective/Hospital Course: Referral received Full consult LOUISE J 06/10/17 Abdomen is soft patient states more tender in the right lower quadrant. No guarding however patient does have rebound tenderness Leukocytosis resolved The primary diagnosis seems to be somewhat unclear. We'll patient may have left sided diverticulitis this pattern of presentation is usually associated with pancolitis either infectious or related to later presentation of some sort of granulomatous disease like ulcerative colitis. All in all when everything calms down the patient will need colonoscopy with biopsies to establish the actual nature of this problem Based on the final diagnosis will best be able to decide when and in what fashion to proceed with surgery. Would continue IV antibiotics 06/11/17 Patient is improved subjectively. Remains afebrile and leukocytosis is resolved Abdomen is soft with active bowel sounds clam shucking machine tender in the right lower quadrant but no rebound or guarding is noted EGD consistent with esophagitis Would continue current care and after colonoscopy we will decide how to proceed depending on the biopsies Objective: Vital Signs Date Time Temp Pulse Resp B/P Pulse Ox O2 Delivery O2 Flow Rate FiO2 06/11/17 11:30 98.9 83 20 179/98 93 06/11/17 11:15 97.5 88 18 154/91 95 06/11/17 11:00 97.7 91 18 131/77 97 06/11/17 07:50 98.0 90 20 166/108 93 06/11/17 04:00 98.3 85 20 164/104 92 06/11/17 00:00 98.1 85 18 156/91 92 06/10/17 20:00 98.7 93 19 167/87 94 06/10/17 16:00 98.5 96 18 158/89 96 Labs: Laboratory Tests Test 06/11/17 07:44 White Blood Count 8.5 TH/MM3 (4.0-11.0) Red Blood Count 3.80 MIL/MM3 (4.50-5.90) Hemoglobin 12.3 GM/DL (13.0-17.0) Hematocrit 35.9 % (39.0-51.0) Mean Corpuscular Volume 94.3 FL (80.0-100.0) Mean Corpuscular Hemoglobin 32.4 PG (27.0-34.0) Mean Corpuscular Hemoglobin 34.3 % Concent (32.0-36.0) Red Cell Distribution Width 13.3 % (11.6-17.2) Platelet Count 362 TH/MM3 (150-450) Mean Platelet Volume 7.6 FL (7.0-11.0) Neutrophils (%) (Auto) 83.9 % (16.0-70.0) Lymphocytes (%) (Auto) 6.4 % (9.0-44.0) Monocytes (%) (Auto) 9.1 % (0.0-8.0) Eosinophils (%) (Auto) 0.3 % (0.0-4.0) Basophils (%) (Auto) 0.3 % (0.0-2.0) Neutrophils # (Auto) 7.1 TH/MM3 (1.8-7.7) Lymphocytes # (Auto) 0.5 TH/MM3 (1.0-4.8) Monocytes # (Auto) 0.8 TH/MM3 (0-0.9) Eosinophils # (Auto) 0.0 TH/MM3 (0-0.4) Basophils # (Auto) 0.0 TH/MM3 (0-0.2) CBC Comment DIFF FINAL Differential Comment Sodium Level 134 MEQ/L (136-145) Potassium Level 3.5 MEQ/L (3.5-5.1) Chloride Level 104 MEQ/L (98-107) Carbon Dioxide Level 22.4 MEQ/L (21.0-32.0) Anion Gap 8 MEQ/L (5-15) Blood Urea Nitrogen 12 MG/DL (7-18) Creatinine 0.58 MG/DL (0.60-1.30) Estimat Glomerular Filtration 138 ML/MIN Rate (>89) Random Glucose 116 MG/DL (74-106) Calcium Level 7.4 MG/DL (8.5-10.1) Protein Corrected Calcium 8.0 MG/DL (8.5-10.1) Magnesium Level 2.3 MG/DL (1.5-2.5) Total Bilirubin 0.7 MG/DL (0.2-1.0) Aspartate Amino Transf 10 U/L (15-37) (AST/SGOT) Alanine Aminotransferase 12 U/L (12-78) (ALT/SGPT) Alkaline Phosphatase 71 U/L (45-117) Total Protein 6.0 GM/DL (6.4-8.2) Albumin 2.5 GM/DL (3.4-5.0) Result Diagram: 06/11/17 0744 06/11/17 0744 Trinh Enrique MD Jun 11, 2017 13:29
[2017-06-11] MEDS: ENALAPRILAT 1.25 MG/ML VIAL IV PUSH PRN (13:57)
--- NOTE | 2017-06-11 14:40 | EKG ---
Date Performed: 06/11/2017 Time Performed: 09:44:07 PTAGE: 72 years EKG: Sinus rhythm NORMAL ECG PREVIOUS TRACING : 07/12/2010 09.51 Compared to prior tracing no significant change DOCTOR: Abraham Sanchez Interpretating Date/Time 06/11/2017 14:39:09
--- NOTE | 2017-06-11 15:35 | HHI.PR ---
Subjective Remarks Follow up diverticulitis. Patient states that he is still having right lower quadrant abdominal pain. Otherwise feels okay today. Denies chest pain, dyspnea. Had EGD this morning. Objective Vitals Vital Signs Date Time Temp Pulse Resp B/P Pulse Ox O2 Delivery O2 Flow Rate FiO2 06/11/17 11:30 98.9 83 20 179/98 93 06/11/17 11:15 97.5 88 18 154/91 95 06/11/17 11:00 97.7 91 18 131/77 97 06/11/17 07:50 98.0 90 20 166/108 93 06/11/17 04:00 98.3 85 20 164/104 92 06/11/17 00:00 98.1 85 18 156/91 92 06/10/17 20:00 98.7 93 19 167/87 94 06/10/17 16:00 98.5 96 18 158/89 96 I/O 06/10/17 06/10/17 06/10/17 06/11/17 06/11/17 06/11/17 06:59 14:59 22:59 06:59 14:59 22:59 Intake Total 1100 ml 560 ml 120 ml 0 ml Balance 1100 ml 560 ml 120 ml 0 ml Intake Oral 560 ml 120 ml 0 ml IV Total 1100 ml # Voids 2 0 1 Result Diagram: 06/11/1744 06/11/17743 Objective Remarks General: No acute distress. Heart: Regular rate and rhythm. No murmur. Lungs: Clear to auscultation bilaterally. No wheezes, rales, or rhonchi. Breathing is nonlabored. Abdomen: Soft, tender to palpation in the right lower quadrant. Nondistended. Extremities: No lower extremity edema. Psych: Alert and oriented. Procedures 06/11/17 EGD Urinary Catheter: No Vascular Central Line Catheter: No A/P Problem List: (1) Diverticulitis ICD Code: K57.92 Status: Acute (2) Hypokalemia ICD Code: E87.6 Status: Acute (3) Hyponatremia ICD Code: E87.1 Status: Acute (4) Hypertension ICD Code: I10 Status: Chronic (5) Alcohol abuse ICD Code: F10.10 Status: Chronic Assessment and Plan 1. Acute diverticulitis: Appreciate GI recommendations. Status post EGD. Plan for colonoscopy in 4 weeks. Continue antibiotics, IV fluids. Continue Protonix. 2. Alcohol abuse: Patient drinks 6 beers per day. He has no interest in quitting. He was counseled on cessation. [facility] protocol. Withdrawal precautions. Continue thiamine, folate, multivitamin. 3. Hypertension: Vasotec as needed. Continue lisinopril. 4. Hypokalemia: Improved. 5. Hyponatremia: Mild, stable. 6. DVT prophylaxis: ROGELIO Mireles. Discharge Planning Possible discharge home in next 1-2 days if cleared by gastroenterology. Tim Staples MD Jun 11, 2017 15:35
[2017-06-11] MEDS: MULTIVITAMIN INJ 10 ML, FOLIC ACID INJ 1 MG in SODIUM CHLORID 0.9% 500 ML INJ 500 ML IV SCH (15:43)
[2017-06-11] MEDS ORDERED: ACETAMINOPHEN/HYDROcodone 325 MG/5 MG TAB PO PRN (19:00)
[2017-06-11] MEDS: THIAMINE INJ 100 MG in SODIUM CHLORIDE 0.9% INJ 100 ML IV SCH (20:31)
[2017-06-11] MEDS: ACETAMINOPHEN/HYDROcodone 325 MG/10 MG TAB PO PRN (20:32)
[2017-06-12] VITALS (10 sets, daily range): BP systolic 155–198; BP diastolic 96–116; PULSE 72–90; RESP 17–20; TEMP 97.6–100; O2SAT 92–95
[2017-06-12] MEDS: PIPERACIL-TAZO 3.375 GM PREMIX 50 ML IV SCH ×4 (00:23→18:00)
[2017-06-12] MEDS: ACETAMINOPHEN/HYDROcodone 325 MG/10 MG TAB PO PRN ×3 (01:32→20:46)
[2017-06-12] MEDS: ENALAPRILAT 1.25 MG/ML VIAL IV PUSH PRN ×2 (03:53→13:55)
[2017-06-12] MEDS: NS + KCL 20 MEQ INJ 1,000 ML IV SCH (08:45)
[2017-06-12] MEDS: SODIUM CHLORIDE 0.9% FLUSH 10 ML FLUSH IV FLUSH SCH ×2 (09:00→20:47)
[2017-06-12] MEDS: THIAMINE HCL 100 MG TAB PO SCH (10:17)
[2017-06-12] MEDS: LISINOPRIL 10 MG TAB PO SCH (10:17)
--- NOTE | 2017-06-12 11:09 | HHI.PR ---
Subjective Remarks Follow-up hypertension, abdominal pain. A shunt states that his right lower quadrant pain has improved somewhat. He does still have pain, but it is much less than yesterday. Objective Vitals Vital Signs Date Time Temp Pulse Resp B/P Pulse Ox O2 Delivery O2 Flow Rate FiO2 06/12/17 07:30 97.6 78 20 172/96 92 06/12/17 05:40 84 17 198/107 06/12/17 03:40 98.3 90 17 185/111 92 06/12/17 00:00 98.2 81 17 155/97 92 06/11/17 20:00 99.3 67 18 176/98 93 06/11/17 15:46 90 180/96 06/11/17 15:45 99.7 90 20 193/108 94 06/11/17 11:30 98.9 83 20 179/98 93 06/11/17 11:15 97.5 88 18 154/91 95 I/O 06/11/17 06/11/17 06/11/17 06/12/17 06/12/17 06/12/17 07:00 15:00 23:00 07:00 15:00 23:00 Intake Total 0 ml 300 ml 500 ml 800 ml Output Total 500 ml Balance 0 ml 300 ml 500 ml 300 ml Intake Oral 0 ml 300 ml IV Total 500 ml 800 ml Output Urine Total 500 ml # Voids 1 2 1 1 # Bowel Movements 0 Result Diagram: 06/11/1744 06/11/1744 Objective Remarks General: No acute distress. Heart: Regular rate and rhythm. No murmur. Lungs: Clear to auscultation bilaterally. No wheezes, rales, or rhonchi. Breathing is nonlabored. Abdomen: Soft, mildly tender to palpation in the right lower quadrant without rebound or guarding. Nondistended. Extremities: No lower extremity edema. Psych: Alert and oriented. Procedures 06/11/17 EGD Urinary Catheter: No Vascular Central Line Catheter: No A/P Problem List: (1) Diverticulitis ICD Code: K57.92 Status: Acute (2) Hypokalemia ICD Code: E87.6 Status: Acute (3) Hyponatremia ICD Code: E87.1 Status: Acute (4) Hypertension ICD Code: I10 Status: Chronic (5) Alcohol abuse ICD Code: F10.10 Status: Chronic Assessment and Plan 1. Acute diverticulitis: Appreciate GI recommendations. Status post EGD. Plan for colonoscopy in 4 weeks. Continue antibiotics, IV fluids. Continue Protonix. Abdominal pain is improving. 2. Alcohol abuse: Patient drinks 6 beers per day. He has no interest in quitting. He was counseled on cessation. [facility] protocol. Withdrawal precautions. Continue thiamine, folate, multivitamin. 3. Hypertension: Continue lisinopril. Blood pressure has been elevated. Clonidine, Vasotec as needed. 4. Hypokalemia: Improved. 5. Hyponatremia: Mild, stable. 6. DVT prophylaxis: ROGELIO Mireles. Discharge Planning Possible discharge home in next 1-2 days if cleared by gastroenterology. Tim Staples MD Jun 12, 2017 11:09
--- NOTE | 2017-06-12 11:21 | HHI.GIFU ---
Subjective Remarks Resting in bed. No n/v. No abdominal pain. Mildly bloated. No BM for several days. No bleeding. (Deb Bhandari) Objective Vitals I&O Vital Signs Date Time Temp Pulse Resp B/P Pulse Ox O2 Delivery O2 Flow Rate FiO2 06/12/17 07:30 97.6 78 20 172/96 92 06/12/17 05:40 84 17 198/107 06/12/17 03:40 98.3 90 17 185/111 92 06/12/17 00:00 98.2 81 17 155/97 92 06/11/17 20:00 99.3 67 18 176/98 93 06/11/17 15:46 90 180/96 06/11/17 15:45 99.7 90 20 193/108 94 06/11/17 11:30 98.9 83 20 179/98 93 I/O 06/11/17 06/11/17 06/11/17 06/12/17 06/12/17 06/12/17 07:00 15:00 23:00 07:00 15:00 23:00 Intake Total 0 ml 300 ml 500 ml 800 ml Output Total 500 ml Balance 0 ml 300 ml 500 ml 300 ml Intake Oral 0 ml 300 ml IV Total 500 ml 800 ml Output Urine Total 500 ml # Voids 1 2 1 1 # Bowel Movements 0 Physical Exam HEENT: Normocephalic; atraumatic; no jaundice. CHEST: CTA CARDIAC: RRR. ABDOMEN: Soft, mildly distended, nontender; no hepatosplenomegaly; bowel sounds are present in all four quadrants. EXTREMITIES: No clubbing, cyanosis, or edema. SKIN: Normal; no rash; no jaundice. 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 (Deb Bhandari) Assessment and Plan Plan ASSESSMENT: - Abdominal pain with abnormal imaging consistent with probable acute diverticulitis. No prior episodes of diverticulitis, no hx of egd/colonoscopy. CT of the abdomen and pelvis with IV contrast (06/08/17)-----> Multifocal inflammatory changes of the right lower quadrant. There is wall thickening and adjacent inflammatory changes of the mid sigmiod colon. Most likely etiology for this finding is diverticulitis. Epicenter of inflammation there is either a prominent diverticulum or small abscess. Neoplasm also in the differential diagnosis. Circumferential wall thickening and prominent inflammatory changes are also seen at the distal ileum 10 cm proximal to the ileocecal valve. Differential diagnosis is infection and inflammatory bowel disease. Peripheral gas at the dependent portions of the cecum and transverse colon suggesting pseudo-pneumatosis of gas trapped between luminal fluid and the colon wall. No evidence of free air. No portal venous gas. Marked wall thickening of the distal esophagus. GS following, Clear liquids. Zosyn - Abn. imaging of esophagus on CT with marked wall thickening of distal esophagus. He denies any hx of GERD. He has not had any decreased appetite or weight loss. S/P EGD (06/12/17)----> Distal esophagitis, pathology pending. PPI - Constipation, mild distention. Will give miralax - ETOH abuse. 6-7 beers daily. PLAN: - MARLON - Await pathology - Add Miralax - Cont. PPI - Cont. Zosyn - Cont. IVF - Monitor labs - GS following -Colonoscopy4-6 weeks, once diverticulitis resolved - Pt seen and examined by Dr. James and myself and this note is written on his behalf 1600, called by nurse- states worsening distention, abdominal pain. Pt more distended, tympanic, diffuse tenderness, with high pitched bowel sounds. No BM. Denies flatus. No n/v. Will make NPO, Stat CT scan abdomen and pelvis with po contrast only, and notify GS. Notified Dr. Kyle (Deb Bhandari) Physician Comments Patient seen and examined Agree with above Continue with current supportive care Monitor labs Await CT of the abdomen Case discussed with Dr. Mcbride (Ministerio James MD) Deb Bhandari Jun 12, 2017 11:21 Ministerio James MD Jun 12, 2017 18:00
[2017-06-12] MEDS: cloNIDine HCL 0.1 MG TAB PO PRN ×2 (11:52→18:03)
[2017-06-12] MEDS: PANTOPRAZOLE SOD 40 MG DELAYED RELEASE TAB PO SCH (12:27)
[2017-06-12] MEDS: POLYETHYLENE GLYCOL 17 GM PKG PO SCH (12:27)
[2017-06-12 14:03] LABS: AUTOMATED NEUTROPHIL # 6.3 TH/MM3 (1.8-7.7); BASOPHIL % 0.5 % (0.0-2.0); EOSINOPHIL % 0.3 % (0.0-4.0); HEMATOCRIT 38.6 % (39.0-51.0); HEMO FLAGS DIFF FINAL; LYMPH % 8.3 % (9.0-44.0); LYMPHOCYTE # 0.6 TH/MM3 (1.0-4.8); MEAN CELL VOLUME 96.9 FL (80.0-100.0); MONO % 8.8 % (0.0-8.0); NEUT % 82.1 % (16.0-70.0); PLATELET COUNT 426 TH/MM3 (150-450); RED BLOOD COUNT 3.99 MIL/MM3 (4.50-5.90); RED CELL DISTRIBUTION WIDTH 13.4 % (11.6-17.2); WHITE BLOOD COUNT 7.7 TH/MM3 (4.0-11.0)
[2017-06-12 14:34] LABS: POTASSIUM 3.5 MEQ/L (3.5-5.1)
[2017-06-12] MEDS ORDERED: SENNOSIDES 8.6 MG TAB PO PRN (15:00)
[2017-06-12] MEDS ORDERED: BISACODYL 10 MG SUPP RECTAL PRN (15:00)
[2017-06-12] MEDS ORDERED: MAGNESIUM HYDROXIDE SUSP 30 ML CUP PO PRN (15:00)
[2017-06-12] MEDS: ATENOLOL 25 MG TAB PO SCH (15:00)
[2017-06-12] MEDS ORDERED: LACTULOSE SYRUP 20 GM/30 ML CUP PO PRN (15:00)
[2017-06-12] MEDS ORDERED: HYDROmorphone HCL PF 1 MG/ML VIAL IV PUSH ONE (16:15)
[2017-06-12] MEDS ORDERED: DIATRIZOATE MEGLUM/DIATRIZOATE SOD 9 ML CUP PO ONE (16:22)
[2017-06-12] MEDS ORDERED: IOHEXOL 350 MG/ML 10 ML VIAL (for RAD DIAG) IV ONE (17:08)
--- NOTE | 2017-06-12 17:15 | PD.CAR.PN ---
CVT Progress Note Subjective/Hospital Course: Referral received Full consult LOUISE J 06/10/17 Abdomen is soft patient states more tender in the right lower quadrant. No guarding however patient does have rebound tenderness Leukocytosis resolved The primary diagnosis seems to be somewhat unclear. We'll patient may have left sided diverticulitis this pattern of presentation is usually associated with pancolitis either infectious or related to later presentation of some sort of granulomatous disease like ulcerative colitis. All in all when everything calms down the patient will need colonoscopy with biopsies to establish the actual nature of this problem Based on the final diagnosis will best be able to decide when and in what fashion to proceed with surgery. Would continue IV antibiotics 06/11/17 Patient is improved subjectively. Remains afebrile and leukocytosis is resolved Abdomen is soft with active bowel sounds dam tender assistant in the right lower quadrant but no rebound or guarding is noted EGD consistent with esophagitis Would continue current care and after colonoscopy we will decide how to proceed depending on the biopsies 06/12/17 Patient more tender diffusely No rebound or guarding Distended.Patient definitely has an ileus,b ut he may have a developing distal large bowel obstruction, considering that he remains distended 4 days into the therapy. CT scan may be revealing possible distal sigmoid mass. Discussed with Dr Curry. Suggest decrease narcotics, gastrografin enema tomorrow am, for patient will eventually develop ischemia and perforation if obstruction and dilatation persists. No acute abdomen requiring surgery at this time. If positive for a mass, patient will need decompressive colonoscopy, vs colon resection/decompression Objective: Vital Signs Date Time Temp Pulse Resp B/P Pulse Ox O2 Delivery O2 Flow Rate FiO2 06/12/17 15:50 99.3 78 20 173/106 94 06/12/17 12:50 86 176/108 06/12/17 11:50 100.0 84 20 189/109 93 06/12/17 07:30 97.6 78 20 172/96 92 06/12/17 05:40 84 17 198/107 06/12/17 03:40 98.3 90 17 185/111 92 06/12/17 00:00 98.2 81 17 155/97 92 06/11/17 20:00 99.3 67 18 176/98 93 Labs: Laboratory Tests Test 06/12/17 13:37 White Blood Count 7.7 TH/MM3 (4.0-11.0) Red Blood Count 3.99 MIL/MM3 (4.50-5.90) Hemoglobin 12.7 GM/DL (13.0-17.0) Hematocrit 38.6 % (39.0-51.0) Mean Corpuscular Volume 96.9 FL (80.0-100.0) Mean Corpuscular Hemoglobin 32.0 PG (27.0-34.0) Mean Corpuscular Hemoglobin 33.0 % Concent (32.0-36.0) Red Cell Distribution Width 13.4 % (11.6-17.2) Platelet Count 426 TH/MM3 (150-450) Mean Platelet Volume 6.9 FL (7.0-11.0) Neutrophils (%) (Auto) 82.1 % (16.0-70.0) Lymphocytes (%) (Auto) 8.3 % (9.0-44.0) Monocytes (%) (Auto) 8.8 % (0.0-8.0) Eosinophils (%) (Auto) 0.3 % (0.0-4.0) Basophils (%) (Auto) 0.5 % (0.0-2.0) Neutrophils # (Auto) 6.3 TH/MM3 (1.8-7.7) Lymphocytes # (Auto) 0.6 TH/MM3 (1.0-4.8) Monocytes # (Auto) 0.7 TH/MM3 (0-0.9) Eosinophils # (Auto) 0.0 TH/MM3 (0-0.4) Basophils # (Auto) 0.0 TH/MM3 (0-0.2) CBC Comment DIFF FINAL Differential Comment Sodium Level 132 MEQ/L (136-145) Potassium Level 3.5 MEQ/L (3.5-5.1) Chloride Level 99 MEQ/L (98-107) Carbon Dioxide Level 26.0 MEQ/L (21.0-32.0) Anion Gap 7 MEQ/L (5-15) Blood Urea Nitrogen 6 MG/DL (7-18) Creatinine 0.56 MG/DL (0.60-1.30) Estimat Glomerular Filtration 144 ML/MIN Rate (>89) Random Glucose 130 MG/DL (74-106) Calcium Level 8.3 MG/DL (8.5-10.1) Result Diagram: 06/12/17 1337 06/12/17 1337 Trinh Enrique MD Jun 12, 2017 17:15
--- NOTE | 2017-06-12 17:18 | RADRPT ---
EXAM DATE/TIME: 06/12/2017 16:53 CORRECTION Corrected on: June 12, 2017; [facility] COMPARISON: ABDOMEN SINGLE VIEW, June 12, 2017, 17:10. CT ABDOMEN & PELVIS W CONTRAST, June 08, 2017, 22:00. INDICATIONS : Abdominal distention, pain and high pitched bowel sounds. IV CONTRAST: 69 cc Omnipaque 350 (iohexol) IV ORAL CONTRAST: No oral contrast ingested. RADIATION DOSE: 7.37 CTDIvol (mGy) MEDICAL HISTORY : None SURGICAL HISTORY : None. ENCOUNTER: Initial ACUITY: 3 days PAIN SCALE: 7/10 LOCATION: Bilateral lower quadrant TECHNIQUE: Volumetric scanning of the abdomen and pelvis was performed. Using automated exposure control and ad justment of the mA and/or kV according to patient size, radiation dose was kept as low as reasonably achievable to obtain optimal diagnostic quality images. DICOM format image data is available electro nically for review and comparison. FINDINGS: LOWER LUNGS: There are small bilateral pleural effusions with consolidation in both lung bases with air bronchogra ms. The heart size appears mildly prominent. LIVER: Homogeneous density with a stable cysts again noted in the left lobe. Gallbladder appears unremarkabl e. There is mild ascitic fluid surrounding the liver margin. There is no dilation of the biliary tree . No calcified gallstones. SPLEEN: Normal size without lesion. Calcified granulomas are again noted. PANCREAS: Within normal limits. KIDNEYS: Normal in size and shape. There is no mass, stone or hydronephrosis. ADRENAL GLANDS: Within normal limits. VASCULAR: There is no aortic aneurysm. BOWEL/MESENTERY: Abnormal bowel gas pattern is again identified with dilatation involving the ascending transverse and descending colon with multiple air-fluid levels. The region of the cecum is the most distended and i s unchanged in appearance measuring approximately 8 cm. Air is again noted along the periphery of the cecum. There are multiple loops of borderline dilated air-containing small bowel now noted with mult iple air-fluid levels. This is new from the prior study. There is mild inflammatory change which lorenzo ins greatest in the right side of lower abdomen and pelvis. A small amount of fluid in the cul-de-sac and pelvis. There is no free air. There is no portal venous gas. There is no apparent apple core typ e lesion involving the sigmoid colon best seen on axial image #77 and coronal image #45. This appears to be causing obstruction. ABDOMINAL WALL: Within normal limits. RETROPERITONEUM: There is no lymphadenopathy. BLADDER: No wall thickening or mass. REPRODUCTIVE: Within normal limits. INGUINAL: There is no lymphadenopathy or hernia. MUSCULOSKELETAL: Within normal limits for patient age. CONCLUSION: 1. Apple core type lesion worrisome for colon cancer involving the sigmoid colon causing obstruction and worsening bowel gas pattern with multiple loops of borderline dilated air-containing small bowel now noted with multiple air-fluid levels. The degree of colonic distention is not significantly casiano ed. Findings there are concerning for partial bowel obstruction. 2. Inflammatory change remains greatest in right side of the abdomen and pelvis. 3. New small pleural effusions with consolidation in both posterior lung bases. 4. A small amount of ascitic fluid is present which is increased from the prior study as well. Dr. Sanchez was notified of these findings. Daryl Rene MD on June 12, 2017 at 17:09 Board Certified Radiologist. This report was verified electronically. Daryl Rene MD on June 12, 2017 at 17:51 Board Certified Radiologist. This report was verified electronically.
[2017-06-12] MEDS: MULTIVITAMIN INJ 10 ML, FOLIC ACID INJ 1 MG in SODIUM CHLORID 0.9% 500 ML INJ 500 ML IV SCH (20:47)
[2017-06-12] MEDS ORDERED: DOCUSATE SODIUM 50 MG/SENNA 8.6 MG TAB PO SCH (21:00)
[2017-06-13] VITALS (8 sets, daily range): BP systolic 101–204; BP diastolic 61–117; PULSE 80–86; RESP 16–20; TEMP 97.9–99.2; O2SAT 94–96
[2017-06-13] MEDS: MORPHINE SULFATE 4 MG/ML INJ IV PRN ×3 (00:33→09:16)
[2017-06-13] MEDS: cloNIDine HCL 0.1 MG TAB PO PRN ×2 (00:34→11:43)
[2017-06-13] MEDS: PIPERACIL-TAZO 3.375 GM PREMIX 50 ML IV SCH ×5 (00:34→23:53)
[2017-06-13] MEDS: ACETAMINOPHEN/HYDROcodone 325 MG/10 MG TAB PO PRN ×3 (01:26→11:43)
[2017-06-13] MEDS: ENALAPRILAT 1.25 MG/ML VIAL IV PUSH PRN ×2 (01:46→11:55)
[2017-06-13] MEDS: SODIUM CHLOR 0.9% 1000 ML INJ 1,000 ML IV SCH ×2 (01:55→16:00)
[2017-06-13] MEDS: PANTOPRAZOLE SOD 40 MG DELAYED RELEASE TAB PO SCH (09:00)
[2017-06-13] MEDS: THIAMINE HCL 100 MG TAB PO SCH (09:00)
[2017-06-13] MEDS: POLYETHYLENE GLYCOL 17 GM PKG PO SCH (09:00)
[2017-06-13] MEDS: SODIUM CHLORIDE 0.9% FLUSH 10 ML FLUSH IV FLUSH SCH ×2 (09:00→21:00)
[2017-06-13] MEDS: LISINOPRIL 10 MG TAB PO SCH (09:15)
[2017-06-13] MEDS: ATENOLOL 25 MG TAB PO SCH (09:15)
[2017-06-13] MEDS ORDERED: DIATRIZOATE MEGLUM/DIATRIZOATE SOD 120 ML BTL (for RAD DIAG) RECTAL ONE (10:11)
--- NOTE | 2017-06-13 10:59 | RADRPT ---
EXAM DATE/TIME: 06/13/2017 09:41 [facility] COMPARISON: CT ABDOMEN & PELVIS W CONTRAST, June 12, 2017, 16:53. CT ABDOMEN & PELVIS W CONTRAST, June 08, 2017, 22:00. INDICATIONS : Abdominal pain and rectosigmoid mass seen on CT/ obstruction FLUORO TIME: 1.4 minutes IMAGE COUNT: 20 CONTRAST: 1. [facility] MEDICAL HISTORY : None. SURGICAL HISTORY : None. ENCOUNTER: Initial ACUITY: 4 - 6 days PAIN SCORE: 10/10 LOCATION: Right lower abdomen FINDINGS: The pulmonary desktop publishing specialist films demonstrate an abnormal bowel gas pattern with gaseous distention involving the majority of the colon. There are multiple loops of dilated air containing small bowel. Contrast is noted in the bladder. Under fluoroscopic guidance a limited Gastrografin enema was performed. Contrast flowed fairly rapidly to a high grade Apple core type lesion in the sigmoid colon. There is narrowing of the lumen down to approximately 1 cm. This extended for approximately 6 cm. The colon pa st this point was dilated and a small amount of Gastrografin was advanced past this point. CONCLUSION: Apple core type lesion involving the sigmoid colon is characteristic of colon cancer. Daryl Rene MD on June 13, 2017 at 10:54 Board Certified Radiologist. This report was verified electronically.
--- NOTE | 2017-06-13 12:02 | HHI.PR ---
Subjective Remarks Follow-up abdominal pain. The patient developed worsening abdominal pain yesterday. CT was done and showed apparent obstruction, possible colon cancer. The patient states that he feels somewhat better today after Gastrografin enema. Denies chest pain or dyspnea. Objective Vitals Vital Signs Date Time Temp Pulse Resp B/P Pulse Ox O2 Delivery O2 Flow Rate FiO2 06/13/17 11:40 98.2 86 20 179/114 94 06/13/17 08:00 98.3 80 16 188/112 96 06/13/17 04:00 97.9 82 16 189/107 94 06/13/17 02:50 176/100 06/13/17 02:00 185/105 06/13/17 01:45 80 197/111 06/13/17 01:40 204/117 06/12/17 20:00 99.0 75 18 188/116 95 06/12/17 17:52 74 182/108 06/12/17 17:50 72 197/114 06/12/17 15:50 99.3 78 20 173/106 94 06/12/17 12:50 86 176/108 I/O 06/12/17 06/12/17 06/12/17 06/13/17 06/13/17 06/13/17 06:59 14:59 22:59 06:59 14:59 22:59 Intake Total 800 ml 2480 ml 700 ml Output Total 500 ml Balance 300 ml 2480 ml 700 ml Intake Oral 480 ml 300 ml IV Total 800 ml 2000 ml 400 ml Output Urine Total 500 ml # Voids 1 2 2 # Bowel Movements 0 0 Result Diagram: 06/12/17 1337 06/12/17 1337 Imaging Last Impressions Enema w/Water Soluble 06/13/17 0000 Signed Impressions: Service Date/Time: Tuesday, June 13, 2017 09:41 - CONCLUSION: Apple core type lesion involving the sigmoid colon is characteristic of colon cancer. Daryl Rene MD Abdomen/Pelvis CT 06/12/17 0000 Signed Impressions: Service Date/Time: May 16:53 - CONCLUSION: 1. Apple core type lesion worrisome for colon cancer involving the sigmoid colon causing obstruction and worsening bowel gas pattern with multiple loops of borderline dilated air-containing small bowel now noted with multiple air-fluid levels. The degree of colonic distention is not significantly changed. Findings there are concerning for partial bowel obstruction. 2. Inflammatory change remains greatest in right side of the abdomen and pelvis. 3. New small pleural effusions with consolidation in both posterior lung bases. 4. A small amount of ascitic fluid is present which is increased from the prior study as well. Dr. Sanchez was notified of these findings. Daryl Rene MD Objective Remarks General: No acute distress. Heart: Regular rate and rhythm. No murmur. Lungs: Clear to auscultation bilaterally. No wheezes, rales, or rhonchi. Breathing is nonlabored. Abdomen: Soft, moderately distended, tender to palpation in the right lower quadrant without rebound or guarding. Nondistended. Extremities: No lower extremity edema. Psych: Alert and oriented. Procedures 06/11/17 EGD Urinary Catheter: No Vascular Central Line Catheter: No A/P Problem List: (1) Diverticulitis ICD Code: K57.92 Status: Acute (2) Hypokalemia ICD Code: E87.6 Status: Acute (3) Hyponatremia ICD Code: E87.1 Status: Acute (4) Hypertension ICD Code: I10 Status: Chronic (5) Alcohol abuse ICD Code: F10.10 Status: Chronic Assessment and Plan 1. Acute diverticulitis: Appreciate GI recommendations. Status post EGD. Continue antibiotics, IV fluids. Continue Protonix. 2. Alcohol abuse: Patient drinks 6 beers per day. He has no interest in quitting. He was counseled on cessation. [facility] protocol. Withdrawal precautions. Continue thiamine, folate, multivitamin. 3. Hypertension: Continue lisinopril. Blood pressure has been elevated. Clonidine, Vasotec as needed. 4. Hypokalemia: Improved. 5. Hyponatremia: Mild, stable. 6. Colon mass: Management per GI, surgery. Sigmoidoscopy per GI. 7. Partial bowel obstruction: Nothing by mouth. 8. DVT prophylaxis: SCDs, ROGELIO monteiro. Discharge Planning Pending clinical improvement. Tim Staples MD Jun 13, 2017 12:02
--- NOTE | 2017-06-13 12:19 | PD.CAR.PN ---
CVT Progress Note Subjective/Hospital Course: Referral received Full consult LOUISE J 06/10/17 Abdomen is soft patient states more tender in the right lower quadrant. No guarding however patient does have rebound tenderness Leukocytosis resolved The primary diagnosis seems to be somewhat unclear. We'll patient may have left sided diverticulitis this pattern of presentation is usually associated with pancolitis either infectious or related to later presentation of some sort of granulomatous disease like ulcerative colitis. All in all when everything calms down the patient will need colonoscopy with biopsies to establish the actual nature of this problem Based on the final diagnosis will best be able to decide when and in what fashion to proceed with surgery. Would continue IV antibiotics 06/11/17 Patient is improved subjectively. Remains afebrile and leukocytosis is resolved Abdomen is soft with active bowel sounds tar distillation supervisor in the right lower quadrant but no rebound or guarding is noted EGD consistent with esophagitis Would continue current care and after colonoscopy we will decide how to proceed depending on the biopsies 06/12/17 Patient more tender diffusely No rebound or guarding Distended.Patient definitely has an ileus,b ut he may have a developing distal large bowel obstruction, considering that he remains distended 4 days into the therapy. CT scan may be revealing possible distal sigmoid mass. Discussed with Dr Curry. Suggest decrease narcotics, gastrografin enema tomorrow am, for patient will eventually develop ischemia and perforation if obstruction and dilatation persists. No acute abdomen requiring surgery at this time. If positive for a mass, patient will need decompressive colonoscopy, vs colon resection/decompression 06/13/17 Gastrografin enema confirms partial obstruction with a distal sigmoid mass. Discussed with gastroenterology Dr. James and the best way out of this would be sigmoidoscopy with a stent placement followed by washout and then definitive surgery next 48 hours. If this is not successful and we cannot decompress the patient then I will go ahead with surgery today. Have explained to the patient that he may and up with a temporary colostomy if were unable to wash the patient out and decompress Objective: Vital Signs Date Time Temp Pulse Resp B/P Pulse Ox O2 Delivery O2 Flow Rate FiO2 06/13/17 11:40 98.2 86 20 179/114 94 06/13/17 08:00 98.3 80 16 188/112 96 06/13/17 04:00 97.9 82 16 189/107 94 06/13/17 02:50 176/100 06/13/17 02:00 185/105 06/13/17 01:45 80 197/111 06/13/17 01:40 204/117 06/12/17 20:00 99.0 75 18 188/116 95 06/12/17 17:52 74 182/108 06/12/17 17:50 72 197/114 06/12/17 15:50 99.3 78 20 173/106 94 06/12/17 12:50 86 176/108 Result Diagram: 06/12/17 1337 06/12/17 1337 Trinh Enrique MD Jun 13, 2017 12:19
[2017-06-13] MEDS: PANTOPRAZOLE SODIUM 40 MG VIAL IV PUSH SCH (13:00)
[2017-06-13] MEDS ORDERED: ACETAMINOPHEN 1000 MG/100 ML VIAL IV ONE (13:02)
[2017-06-13] MEDS ORDERED: MIDAZOLAM HCL 2 MG/2 ML VIAL ONE (13:02)
[2017-06-13] MEDS ORDERED: FAMOTIDINE 20 MG/2 ML VIAL ONE (13:02)
[2017-06-13] MEDS ORDERED: DEXAMETHASONE SOD PHOS 4 MG/ML VIAL ONE (13:02)
[2017-06-13] MEDS ORDERED: IOHEXOL 350 MG/ML 50 ML BTL (for RAD DIAG) OTHER ONE (13:20)
[2017-06-13] MEDS ORDERED: cloNIDine HCL 0.1 MG/24 HR PATCH T-DERMAL SCH (14:00)
--- NOTE | 2017-06-13 14:11 | RADRPT ---
EXAM DATE/TIME: 06/13/2017 13:43 [facility] COMPARISON: GASTROGRAFIN ENEMA, June 13, 2017, 9:41. INDICATIONS : Mass with obstruction sigmoid colon, stent placement. FLUORO TIME: 8.22 minutes IMAGE COUNT: 3 CONTRAST: Instilled by Ordering Physician MEDICAL HISTORY : Carcinoma, colon. SURGICAL HISTORY : None. ENCOUNTER: Initial ACUITY: 1 day PAIN SCORE: Non-responsive. LOCATION: Sigmoid colon FINDINGS: Intraoperative examination demonstrates stent placement across an obstructing mass in the sigmoid col on. The stent appears well-positioned. CONCLUSION: 1. Uncomplicated stenting of an obstructing mass in the distal sigmoid colon. Mika Curry MD on June 13, 2017 at 14:05 Board Certified Radiologist. This report was verified electronically.
[2017-06-13] MEDS ORDERED: *LABETALOL HCL 100 MG/20 ML VIAL PERIprocedural Use ONLY ONE (14:38)
[2017-06-13] MEDS ORDERED: SUCCINYLCHOLINE CHLORIDE 200 MG/10 ML VIAL IV ONE (14:40)
[2017-06-13] MEDS ORDERED: LACTATED RINGER'S 1,000 ML BAG IV ONE (14:40)
[2017-06-13] MEDS ORDERED: PHENYLEPH/NS 1000 MCG/10 ML SYR IV ONE (14:40)
[2017-06-13] MEDS ORDERED: ONDANSETRON HCL 4 MG/2 ML VIAL IV PUSH ONE (14:40)
[2017-06-13] MEDS ORDERED: fentaNYL CITRATE 250 MCG/5 ML AMP ONE (14:40)
[2017-06-13] MEDS ORDERED: *RESP: ALBUTEROL 2.5 MG/3 ML NEB (PRN) PERIprocedural Use ONLY NEB ONE (14:53)
[2017-06-13] MEDS ORDERED: MORPHINE SULFATE 4 MG/ML INJ IV PRN (15:00)
[2017-06-13] MEDS ORDERED: PROPOFOL 200 MG/20 ML AMP IV ONE (15:16)
--- NOTE | 2017-06-13 16:29 | RADRPT ---
EXAM DATE/TIME: 06/13/2017 15:53 [facility] COMPARISON: CHEST PA & LAT, June 08, 2017, 21:47. INDICATIONS : Shortness of breath. MEDICAL HISTORY : None. SURGICAL HISTORY : None. ENCOUNTER: Initial ACUITY: 1 day PAIN SCORE: 0/10 LOCATION: chest FINDINGS: A single portable frontal view of the chest shows hypoinflation. Bibasilar intralobular infiltrates. Tiny left effusion. Obscuration of the hilar structures due to the degree of inflation. Heart is norm al in size. Nasogastric tube coiled in the stomach. CONCLUSION: Bibasilar infiltrates with small left effusion. I am unable to assess the pulmonary vasculature due t o the degree of inspiration. Tomas Randall Jr., MD on June 13, 2017 at 16:18 Board Certified Radiologist. This report was verified electronically.
[2017-06-13] MEDS ORDERED: DO NOT ADM ANY ANTICOAGULANT DRUGS PRN (16:45)
[2017-06-13] MEDS: MULTIVITAMIN INJ 10 ML, FOLIC ACID INJ 1 MG in SODIUM CHLORID 0.9% 500 ML INJ 500 ML IV SCH (17:00)
[2017-06-13 17:29] LABS: AUTOMATED NEUTROPHIL # 8.5 TH/MM3 (1.8-7.7); BASOPHIL % 0.2 % (0.0-2.0); HEMATOCRIT 40.3 % (39.0-51.0); HEMO FLAGS DIFF FINAL; LYMPH % 3.5 % (9.0-44.0); LYMPHOCYTE # 0.3 TH/MM3 (1.0-4.8); MEAN CELL VOLUME 94.5 FL (80.0-100.0); MEAN CORPUSCULAR HEMOGLOBIN 31.7 PG (27.0-34.0); MEAN CORPUSCULAR HGB CONC 33.6 % (32.0-36.0); MONO % 6.3 % (0.0-8.0); PLATELET COUNT 497 TH/MM3 (150-450); RED BLOOD COUNT 4.27 MIL/MM3 (4.50-5.90); RED CELL DISTRIBUTION WIDTH 13.5 % (11.6-17.2); WHITE BLOOD COUNT 9.4 TH/MM3 (4.0-11.0)
[2017-06-13 17:52] LABS: ANION GAP 9 MEQ/L (5-15); AST (GOT) 21 U/L (15-37); BICARBONATE 25.1 MEQ/L (21.0-32.0); BLOOD UREA NITROGEN 10 MG/DL (7-18); CHLORIDE 100 MEQ/L (98-107); GLOMERULAR FILTRATION RATE 176 ML/MIN (>89); POTASSIUM 3.4 MEQ/L (3.5-5.1); SODIUM (NA) 134 MEQ/L (136-145)
[2017-06-13 17:55] LABS: ALKALINE PHOSPHATASE 114 U/L (45-117); ALT (GPT) 17 U/L (12-78); TOTAL BILIRUBIN ADULT 0.6 MG/DL (0.2-1.0)
--- NOTE | 2017-06-13 18:26 | PD.CONS ---
HPI Service Critical Care Medicine Consult Requested By GI Reason for Consult Critical Care management Primary Care Physician History of Present Illness 72 y/o man with obstructing sigmoid mass and proximal bowel dilation. Flex sigmoidoscopy today abd colon stent placed. COPD, hypertension. He required a NRBM to maintain sats > 90% and has been kept in PACU, slotted for an ICU bed. Convert beta mariana and jeniffer inhibitor to IV until PO tolerance observed. Bronchodilators. Review of Systems ROS No chest pain or SOB (but mildly labored) Past Family Social History Allergies: Coded Allergies: grass pollen (Unverified Allergy, Severe, 06/10/17) Past Medical History Past Medical History Cataracts Past Surgical History Bilateral Cataract surgery Reported Medications Denies taking any medications on a regular basis. Allergies: Coded Allergies: Cultivated Oat Pollen (Verified Allergy, Severe, 06/08/17) Physical Exam Vital Signs Vital Signs Date Time Temp Pulse Resp B/P Pulse Ox O2 Delivery O2 Flow Rate FiO2 06/13/17 15:30 100 28 162/95 92 Non-Rebreather 15 06/13/17 15:15 101 30 162/95 91 Venturi Mask 6 60 06/13/17 15:00 93 28 160/92 95 Non-Rebreather 15 06/13/17 14:45 99 31 201/111 95 Non-Rebreather 15 06/13/17 14:30 110 28 171/107 94 Non-Rebreather 15 06/13/17 14:21 97.9 108 37 167/99 90 Simple Mask 10 06/13/17 11:40 98.2 86 20 179/114 94 06/13/17 08:00 98.3 80 16 188/112 96 06/13/17 04:00 97.9 82 16 189/107 94 06/13/17 02:50 176/100 06/13/17 02:00 185/105 06/13/17 01:45 80 197/111 06/13/17 01:40 204/117 06/12/17 20:00 99.0 75 18 188/116 95 Physical Exam Gen: Alert. Head: Normal. Neck: Airway widely patent. Lungs: Clear, no wheezes or carckles. Mild tachypnea. Heart: NL: S1S2, RR,no m,r. Neck veins full, collapse with braeth. Abdomen: Distended, soft, nontender. BS active. Nio guarding. Extremities: Warm, well perfused. Neuro: O X 3, alert. Conversant. Moves 4 limbs. Laboratory Laboratory Tests Test 06/13/17 16:53 White Blood Count 9.4 Red Blood Count 4.27 Hemoglobin 13.5 Hematocrit 40.3 Mean Corpuscular Volume 94.5 Mean Corpuscular Hemoglobin 31.7 Mean Corpuscular Hemoglobin 33.6 Concent Red Cell Distribution Width 13.5 Platelet Count 497 Mean Platelet Volume 7.0 Neutrophils (%) (Auto) 90.0 Lymphocytes (%) (Auto) 3.5 Monocytes (%) (Auto) 6.3 Eosinophils (%) (Auto) 0.0 Basophils (%) (Auto) 0.2 Neutrophils # (Auto) 8.5 Lymphocytes # (Auto) 0.3 Monocytes # (Auto) 0.6 Eosinophils # (Auto) 0.0 Basophils # (Auto) 0.0 CBC Comment DIFF FINAL Differential Comment Sodium Level 134 Potassium Level 3.4 Chloride Level 100 Carbon Dioxide Level 25.1 Anion Gap 9 Blood Urea Nitrogen 10 Creatinine 0.47 Estimat Glomerular Filtration 176 Rate Random Glucose 132 Calcium Level 7.8 Total Bilirubin 0.6 Aspartate Amino Transf 21 (AST/SGOT) Alanine Aminotransferase 17 (ALT/SGPT) Alkaline Phosphatase 114 Total Protein 6.4 Albumin 2.6 Result Diagram: 06/13/17165206/13/171652 Assessment and Plan Assessment and Plan Assessment: 1. Hypoxemic Respiratory Failure. 2. Bowel obstruction with abdominal distention. 3. COPD, not exacerbated. 4. Colon cancer, sigmoid. Plan: 1. NRBM. 2. IS. 3. Maintenance IV fluid. 4. Bronchodilators. 5. Pepcid. 6. DVT Px. Overall impression: Critically ill with hypoxemic respiratory failure. Diaphragms considerably elevated on CXR, hampering ventilation of best lung segments in bases. Requires ICU admission. Critical care 38 mins Jacob Porter MD Jun 13, 2017 18:26
[2017-06-13] MEDS ORDERED: ENALAPRILAT 1.25 MG/ML VIAL IV PUSH PRN (18:30)
[2017-06-13] MEDS ORDERED: LABETALOL HCL 100 MG/20 ML VIAL IV PUSH PRN (18:30)
[2017-06-13] MEDS: METOPROLOL TARTRATE 5 MG/5 ML VIAL IV PUSH SCH ×2 (19:26→23:53)
--- NOTE | 2017-06-13 19:59 | PD.PROCEDR ---
GI Procedure REFERRING PHYSICIAN Kim HERNÁNDEZ PERFORMED Flexible sigmoidoscopy with colonic stent placement INDICATION FOR PROCEDURE Colonic obstruction PROCEDURE: The procedure, risks and benefits were discussed with Mr. Barksdale and informed consent was obtained. Anesthesia sedated him with Diprivan. He was placed in the left lateral decubitus position. Flexible Sigmoidoscopy: The Pentax videoscope was introduced through the rectum and advanced to the sigmoid. Retroflexion was performed in the rectum. Colonic prep was poor FINDINGS: The scope was advanced to about 25 cm from the anal verge where a mass was noted to be filling the lumen I was unable to pass the scope beyond this point under the guidance of fluoroscopy I was able to pass a wire then over this wire I was able to advance a stent which was deployed across this stricture the stent was a duodenal stent measuring 90 mm in length deployment was very good across the mass and we did not passage of gas and stools post procedure and the scope was then withdrawn ESTIMATED BLOOD LOSS: None SPECIMENS REMOVED: None COMPLICATIONS: None IMPRESSION: Colon cancer with an obstructive mass in the sigmoid status post stent placement for decompression PLAN: Further plans as per the surgical service Ministerio James MD Jun 13, 2017 19:59
[2017-06-14] VITALS (20 sets, daily range): BP systolic 149–184; BP diastolic 81–107; PULSE 79–94; RESP 18–32; TEMP 98.3–99.1; O2SAT 94–99
[2017-06-14 05:42] LABS: AUTOMATED NEUTROPHIL # 5.5 TH/MM3 (1.8-7.7); BASOPHIL % 0.3 % (0.0-2.0); EOSINOPHIL % 0.3 % (0.0-4.0); HEMATOCRIT 36.3 % (39.0-51.0); HEMO FLAGS DIFF FINAL; LYMPH % 8.9 % (9.0-44.0); LYMPHOCYTE # 0.6 TH/MM3 (1.0-4.8); MEAN CELL VOLUME 94.3 FL (80.0-100.0); MEAN CORPUSCULAR HEMOGLOBIN 32.9 PG (27.0-34.0); MEAN CORPUSCULAR HGB CONC 34.9 % (32.0-36.0); MONO % 13.7 % (0.0-8.0); NEUT % 76.8 % (16.0-70.0); PLATELET COUNT 411 TH/MM3 (150-450); RED BLOOD COUNT 3.85 MIL/MM3 (4.50-5.90); RED CELL DISTRIBUTION WIDTH 13.8 % (11.6-17.2); WHITE BLOOD COUNT 7.2 TH/MM3 (4.0-11.0)
[2017-06-14 05:52] LABS: ANION GAP 9 MEQ/L (5-15); AST (GOT) 20 U/L (15-37); BICARBONATE 24.6 MEQ/L (21.0-32.0); BLOOD UREA NITROGEN 10 MG/DL (7-18); CHLORIDE 103 MEQ/L (98-107); GLOMERULAR FILTRATION RATE 168 ML/MIN (>89); MAGNESIUM 2.2 MG/DL (1.5-2.5); POTASSIUM 3.2 MEQ/L (3.5-5.1); SODIUM (NA) 137 MEQ/L (136-145)
[2017-06-14 05:53] LABS: ALT (GPT) 15 U/L (12-78)
[2017-06-14 05:55] LABS: ALKALINE PHOSPHATASE 95 U/L (45-117); TOTAL BILIRUBIN ADULT 0.5 MG/DL (0.2-1.0)
[2017-06-14] MEDS: METOPROLOL TARTRATE 5 MG/5 ML VIAL IV PUSH SCH ×4 (05:58→23:42)
[2017-06-14] MEDS: PIPERACIL-TAZO 3.375 GM PREMIX 50 ML IV SCH ×4 (05:58→23:43)
[2017-06-14] MEDS: SODIUM CHLOR 0.9% 1000 ML INJ 1,000 ML IV SCH (06:10)
--- NOTE | 2017-06-14 06:41 | HHI.CCPN ---
Subjective Remarks/Hospital Course 72 y/o man with obstructing sigmoid mass and proximal bowel dilation. Flex sigmoidoscopy today abd colon stent placed. COPD, hypertension. He required a NRBM to maintain sats > 90% and has been kept in PACU, slotted for an ICU bed. Convert beta mariana and jeniffer inhibitor to IV until PO tolerance observed. Bronchodilators. Subjective 06/14: Currently nasal cannula at 4 L. Afebrile. Denies anxiety, chest pain or shortness of breath. Abdomen less distended status post sigmoid stent placement. Plan for or next [address] Mcbride. Objective Vital Signs Date Time Temp Pulse Resp B/P Pulse Ox O2 Delivery O2 Flow Rate FiO2 06/14/17 06:00 86 22 173/95 98 06/14/17 04:00 98.7 06/14/17 03:30 Nasal Cannula 4.00 06/13/17 15:15 60 Intake and Output 06/13/17 06/13/17 06/13/17 07:59 15:59 23:59 Intake Total 700 ml 2000 ml 500 ml Output Total 220 ml 700 ml Balance 700 ml 1780 ml -200 ml Result Diagram: 06/14/17 0520 06/14/17 0520 Imaging Last Impressions GI Procedure 06/13/17 0000 Signed Impressions: Service Date/Time: Tuesday, June 13, 2017 13:43 - CONCLUSION: 1. Uncomplicated stenting of an obstructing mass in the distal sigmoid colon. Mika Curry MD Enema w/Water Soluble 06/13/17 0000 Signed Impressions: Service Date/Time: Tuesday, June 13, 2017 09:41 - CONCLUSION: Apple core type lesion involving the sigmoid colon is characteristic of colon cancer. Daryl Rene MD Chest X-Ray 06/13/17 0000 Signed Impressions: Service Date/Time: Tuesday, June 13, 2017 15:53 - CONCLUSION: Bibasilar infiltrates with small left effusion. I am unable to assess the pulmonary vasculature due to the degree of inspiration. Tomas Randall Jr., MD Abdomen/Pelvis CT 06/12/17 0000 Signed Impressions: Service Date/Time: May 16:53 - CONCLUSION: 1. Apple core type lesion worrisome for colon cancer involving the sigmoid colon causing obstruction and worsening bowel gas pattern with multiple loops of borderline dilated air-containing small bowel now noted with multiple air-fluid levels. The degree of colonic distention is not significantly changed. Findings there are concerning for partial bowel obstruction. 2. Inflammatory change remains greatest in right side of the abdomen and pelvis. 3. New small pleural effusions with consolidation in both posterior lung bases. 4. A small amount of ascitic fluid is present which is increased from the prior study as well. Dr. Sanchez was notified of these findings. Daryl Rene MD Objective Remarks GENERAL: 72-year-old male, resting in bed in no acute distress on nasal cannula SKIN: Warm and dry. Well perfused HEAD: Atraumatic. Normocephalic. EYES: Pupils equal and round about 3 mm bilaterally and reactive. No scleral icterus. No injection or drainage. ENT: No nasal bleeding or discharge. Mucous membranes pink and moist. NECK: Trachea midline. No JVD. CARDIOVASCULAR: Regular rate and rhythm. S1, S2. No S4. RESPIRATORY: Essentially clear to auscultation bilaterally without wheezes rales or rhonchi. Breath sounds equal bilaterally. GASTROINTESTINAL: Abdomen soft, non-tender, slightly protuberant. Hypoactive bowel sounds are appreciated. MUSCULOSKELETAL: Extremities without noted in peripheral edema. No obvious deformities. NEUROLOGICAL: Awake and alert. No obvious cranial nerve deficits. Motor grossly within normal limits. Five out of 5 muscle strength in the arms and legs. Normal speech. PSYCHIATRIC: Appropriate mood and affect; insight and judgment normal. Procedures 06/11/17 EGD A/P Assessment and Plan Neuro: History of EtOH use History of THC use History of cataracts Patient's been treated with thiamine, folic acid and multivitamin. Morphine for pain management Monitor for DTs. Currently on a clonidine patch/CIWA protocol CV: Hypertension Creatinine schedule metoprolol 5 mill grams IV every 6 hours and enalaprilat 1.25 mg every 8 hours. As needed labetalol, hydralazine, Nitropaste and enalaprilat Continue clonidine patch 0.1 mg weekly Resp: Postprocedure respiratory failure resolved COPD Currently on nasal cannula at 4 L. Titrate to maintain saturations greater than equal to 92% Incentive spirometry while awake Schedule albuterol/ipratropium every 6 hours with albuterol every 2 hours. Dyspnea Follow-up on a.m. chest x-ray GI: Status post sigmoid stents secondary to obstructing mass Sigmoid diverticulosis Status post IR placement of sigmoid 7 yesterday. Plan the OR with general surgery Friday? Nasogastric tube in right nares currently 2 low intermittent wall suction Pantoprazole for GI prophylaxis : No indication for Castelan catheter Endo: Sliding scale insulin if needed Renal: Monitor urine output Accurate I's and O's Currently on normal saline with 20 mEq of KCl 100 cc an hour. Heme: Normocytic anemia Monitor CBCs daily. Follow trends. No indication for transfusion of blood product at this time. ID: Monitor for infection FEN: Hypokalemia Adjust IV fluids. 30 mEq KCl IV 1 recheck in AM. Check magnesium in morning. Access - Utilize peripheral IV. Central line if indicated Prophylaxis - GI - pantoprazole - DVT heparin subcutaneous Level II follow-up: Vitaly Rowan MD Jun 14, 2017 06:41 Vitaly Rowan MD Jun 14, 2017 06:41
[2017-06-14] MEDS ORDERED: NITROGLYCERIN 2% OINT 1 GM PACKET TOPICAL PRN (07:00)
[2017-06-14] MEDS ORDERED: RESP: ALBUTEROL 2.5 MG/3 ML NEB (PRN) NEB (07:00)
[2017-06-14] MEDS: ENALAPRILAT 1.25 MG/ML VIAL IV PUSH SCH ×3 (07:53→22:36)
[2017-06-14] MEDS: NS + KCL 20 MEQ INJ 1,000 ML IV SCH ×2 (07:53→17:01)
[2017-06-14] MEDS: POTASSIUM CHLOR 10 MEQ PREMIX 100 ML IV SCH ×3 (08:24→08:26)
[2017-06-14] MEDS: THIAMINE INJ 100 MG in SODIUM CHLORIDE 0.9% INJ 100 ML IV SCH (08:25)
[2017-06-14] MEDS: SODIUM CHLORIDE 0.9% FLUSH 10 ML FLUSH IV FLUSH SCH ×2 (08:26→21:00)
[2017-06-14] MEDS: THIAMINE HCL 100 MG TAB PO SCH (08:26)
[2017-06-14] MEDS: HEPARIN SODIUM - SQ 10,000 UNITS/ML VIAL SQ SCH ×2 (08:27→17:00)
[2017-06-14] MEDS: LABETALOL HCL 100 MG/20 ML VIAL IV PUSH PRN ×3 (08:34→19:58)
[2017-06-14] MEDS: RESP: ALBUTEROL 2.5 MG/IPRATROPIUM 0.5 MG NEB (SCH) NEB ×3 (09:47→20:45)
[2017-06-14] MEDS: hydrALAZINE HCL 20 MG/ML VIAL IV PUSH PRN ×2 (09:53→17:02)
--- NOTE | 2017-06-14 10:07 | PD.CAR.PN ---
CVT Progress Note Subjective/Hospital Course: Referral received Full consult LOUISE J 06/10/17 Abdomen is soft patient states more tender in the right lower quadrant. No guarding however patient does have rebound tenderness Leukocytosis resolved The primary diagnosis seems to be somewhat unclear. We'll patient may have left sided diverticulitis this pattern of presentation is usually associated with pancolitis either infectious or related to later presentation of some sort of granulomatous disease like ulcerative colitis. All in all when everything calms down the patient will need colonoscopy with biopsies to establish the actual nature of this problem Based on the final diagnosis will best be able to decide when and in what fashion to proceed with surgery. Would continue IV antibiotics 06/11/17 Patient is improved subjectively. Remains afebrile and leukocytosis is resolved Abdomen is soft with active bowel sounds rover tender in the right lower quadrant but no rebound or guarding is noted EGD consistent with esophagitis Would continue current care and after colonoscopy we will decide how to proceed depending on the biopsies 06/12/17 Patient more tender diffusely No rebound or guarding Distended.Patient definitely has an ileus,b ut he may have a developing distal large bowel obstruction, considering that he remains distended 4 days into the therapy. CT scan may be revealing possible distal sigmoid mass. Discussed with Dr Curry. Suggest decrease narcotics, gastrografin enema tomorrow am, for patient will eventually develop ischemia and perforation if obstruction and dilatation persists. No acute abdomen requiring surgery at this time. If positive for a mass, patient will need decompressive colonoscopy, vs colon resection/decompression 06/13/17 Gastrografin enema confirms partial obstruction with a distal sigmoid mass. Discussed with gastroenterology Dr. James and the best way out of this would be sigmoidoscopy with a stent placement followed by washout and then definitive surgery next 48 hours. If this is not successful and we cannot decompress the patient then I will go ahead with surgery today. Have explained to the patient that he may and up with a temporary colostomy if were unable to wash the patient out and decompress 06/14/17 Patient underwent sigmoidoscopy with successful deployment off a stent. Sigmoidoscopy reveals friable low sigmoid/high rectal mass at the level of peritoneal reflection, consistent with carcinoma of the colon Mass was nearly completely obstructing the distal sigmoid and with placement of a stent patient passed a large amount of gas and liquid stool Post colonoscopy patient was transferred to ICU because of respiratory insufficiency, yet this has improved since. After the surgery patient will return to the same ICU sodium as well stay here overnight. Will give GoLYTELY through NG tube today and take patient to the operating room tomorrow for low anterior resection I've discussed risks and benefits with the patient Objective: Vital Signs Date Time Temp Pulse Resp B/P Pulse Ox O2 Delivery O2 Flow Rate FiO2 06/14/17 09:47 98 Nasal Cannula 3.00 06/14/17 09:12 97 4.00 06/14/17 09:00 156/84 06/14/17 08:00 79 06/14/17 08:00 98.3 83 18 184/94 96 06/14/17 06:30 179/91 06/14/17 06:00 86 06/14/17 06:00 86 22 173/95 98 06/14/17 05:00 83 19 149/91 97 06/14/17 04:00 98.7 82 18 182/95 98 06/14/17 04:00 82 06/14/17 03:30 99 Nasal Cannula 4.00 06/14/17 02:45 168/95 06/14/17 02:00 87 26 182/102 96 06/14/17 02:00 87 06/14/17 01:15 90 06/14/17 01:15 98.3 94 29 169/107 94 06/14/17 00:45 88 23 168/95 95 Nasal Cannula 4 06/13/17 23:00 89 22 143/90 97 Partial Non-Rebreather 4 06/13/17 22:00 99 24 165/100 95 Partial Non-Rebreather 10 06/13/17 21:00 98 22 162/96 95 Partial Non-Rebreather 10 06/13/17 20:00 96 20 140/83 95 Partial Non-Rebreather 10 06/13/17 19:00 102 22 164/89 95 Partial Non-Rebreather 10 06/13/17 18:00 107 21 154/88 94 Non-Rebreather 15 06/13/17 17:00 107 22 140/85 94 Non-Rebreather 15 06/13/17 16:30 111 26 149/96 95 Non-Rebreather 15 06/13/17 16:00 97.5 106 24 149/93 95 Non-Rebreather 15 06/13/17 15:30 100 28 162/95 92 Non-Rebreather 15 06/13/17 15:15 101 30 162/95 91 Venturi Mask 6 60 06/13/17 15:00 93 28 160/92 95 Non-Rebreather 15 06/13/17 14:45 99 31 201/111 95 Non-Rebreather 15 06/13/17 14:30 110 28 171/107 94 Non-Rebreather 15 06/13/17 14:21 97.9 108 37 167/99 90 Simple Mask 10 06/13/17 11:40 98.2 86 20 179/114 94 Labs: Laboratory Tests Test 06/14/17 06/14/17 04:05 05:20 Nasal Screen MRSA (PCR) MRSA NOT DETECTED (NOT DETECT) White Blood Count 7.2 TH/MM3 (4.0-11.0) Red Blood Count 3.85 MIL/MM3 (4.50-5.90) Hemoglobin 12.7 GM/DL (13.0-17.0) Hematocrit 36.3 % (39.0-51.0) Mean Corpuscular Volume 94.3 FL (80.0-100.0) Mean Corpuscular Hemoglobin 32.9 PG (27.0-34.0) Mean Corpuscular Hemoglobin 34.9 % Concent (32.0-36.0) Red Cell Distribution Width 13.8 % (11.6-17.2) Platelet Count 411 TH/MM3 (150-450) Mean Platelet Volume 7.2 FL (7.0-11.0) Neutrophils (%) (Auto) 76.8 % (16.0-70.0) Lymphocytes (%) (Auto) 8.9 % (9.0-44.0) Monocytes (%) (Auto) 13.7 % (0.0-8.0) Eosinophils (%) (Auto) 0.3 % (0.0-4.0) Basophils (%) (Auto) 0.3 % (0.0-2.0) Neutrophils # (Auto) 5.5 TH/MM3 (1.8-7.7) Lymphocytes # (Auto) 0.6 TH/MM3 (1.0-4.8) Monocytes # (Auto) 1.0 TH/MM3 (0-0.9) Eosinophils # (Auto) 0.0 TH/MM3 (0-0.4) Basophils # (Auto) 0.0 TH/MM3 (0-0.2) CBC Comment DIFF FINAL Differential Comment Sodium Level 137 MEQ/L (136-145) Potassium Level 3.2 MEQ/L (3.5-5.1) Chloride Level 103 MEQ/L (98-107) Carbon Dioxide Level 24.6 MEQ/L (21.0-32.0) Anion Gap 9 MEQ/L (5-15) Blood Urea Nitrogen 10 MG/DL (7-18) Creatinine 0.49 MG/DL (0.60-1.30) Estimat Glomerular Filtration 168 ML/MIN Rate (>89) Random Glucose 101 MG/DL (74-106) Calcium Level 7.5 MG/DL (8.5-10.1) Magnesium Level 2.2 MG/DL (1.5-2.5) Total Bilirubin 0.5 MG/DL (0.2-1.0) Aspartate Amino Transf 20 U/L (15-37) (AST/SGOT) Alanine Aminotransferase 15 U/L (12-78) (ALT/SGPT) Alkaline Phosphatase 95 U/L (45-117) Total Protein 5.4 GM/DL (6.4-8.2) Albumin 2.3 GM/DL (3.4-5.0) Result Diagram: 06/14/17 0520 06/14/17 0520 Trinh Enrique MD Jun 14, 2017 10:07
[2017-06-14] MEDS ORDERED: PEG (High)/E-LYTE SOLN 4000 ML BTL NG ONE (10:15)
[2017-06-14] MEDS ORDERED: ENALAPRILAT 1.25 MG/ML VIAL IV PUSH PRN (12:30)
[2017-06-14] MEDS: PANTOPRAZOLE SODIUM 40 MG VIAL IV PUSH SCH (12:54)
--- NOTE | 2017-06-14 16:08 | HHI.PR ---
Subjective Remarks This is a pleasant 72 y/o male with no significant past medical history who came to ER with Abdominal pain, drink alcohol, 4-6beers daily. He also smokes marijuana occasionally. CT showed apparent obstruction, possible Colon cancer, status post sigmoidoscopy found Colon Cancer, discussed with Doctor Klaus he transferred the patient to ICU and is followed at this time by [facility] will continue to follow when he comes back to Regular floor or transfer to Hospitalist team. Objective Vital Signs Date Time Temp Pulse Resp B/P Pulse Ox O2 Delivery O2 Flow Rate FiO2 06/14/17 14:00 90 06/14/17 12:00 87 06/14/17 12:00 98.6 87 32 156/101 96 06/14/17 10:00 86 06/14/17 09:47 98 Nasal Cannula 3.00 06/14/17 09:12 97 4.00 06/14/17 09:00 156/84 06/14/17 08:00 79 06/14/17 08:00 98.3 83 18 184/94 96 06/14/17 06:30 179/91 06/14/17 06:00 86 06/14/17 06:00 86 22 173/95 98 06/14/17 05:00 83 19 149/91 97 06/14/17 04:00 98.7 82 18 182/95 98 06/14/17 04:00 82 06/14/17 03:30 99 Nasal Cannula 4.00 06/14/17 02:45 168/95 06/14/17 02:00 87 26 182/102 96 06/14/17 02:00 87 06/14/17 01:15 90 06/14/17 01:15 98.3 94 29 169/107 94 06/14/17 00:45 88 23 168/95 95 Nasal Cannula 4 06/13/17 23:00 89 22 143/90 97 Partial Non-Rebreather 4 06/13/17 22:00 99 24 165/100 95 Partial Non-Rebreather 10 06/13/17 21:00 98 22 162/96 95 Partial Non-Rebreather 10 06/13/17 20:00 96 20 140/83 95 Partial Non-Rebreather 10 06/13/17 19:00 102 22 164/89 95 Partial Non-Rebreather 10 06/13/17 18:00 107 21 154/88 94 Non-Rebreather 15 06/13/17 17:00 107 22 140/85 94 Non-Rebreather 15 06/13/17 16:30 111 26 149/96 95 Non-Rebreather 15 I/O 06/13/17 06/13/17 06/13/17 06/14/17 06/14/17 06/14/17 07:00 15:00 23:00 07:00 15:00 23:00 Intake Total 700 ml 2000 ml 500 ml 1630 ml 2420 ml Output Total 220 ml 700 ml 1050 ml 1975 ml Balance 700 ml 1780 ml -200 ml 580 ml 445 ml Intake Oral 300 ml 0 ml 0 ml IV Total 400 ml 500 ml 1630 ml 920 ml Tube Irrigant 1500 ml Other 2000 ml Output Urine Total 450 ml 450 ml 475 ml Stool Total 250 ml 400 ml 1500 ml Gastric Drainage Total 200 ml 200 ml 0 ml Estimated Blood Loss 20 ml # Voids 2 1 # Bowel Movements 0 2 Result Diagram: 06/14/17 0520 06/14/17 0520 A/P Assessment and Plan Mark Benson MD Jun 14, 2017 16:08 Mika Curry MD Enema w/Water Soluble 06/13/17 0000 Signed Impressions: Service Date/Time: Tuesday, June 13, 2017 09:41 - CONCLUSION: Apple core type lesion involving the sigmoid colon is characteristic of colon cancer. Daryl Rene MD Chest X-Ray 06/13/17 0000 Signed Impressions: Service Date/Time: Tuesday, June 13, 2017 15:53 - CONCLUSION: Bibasilar infiltrates with small left effusion. I am unable to assess the pulmonary vasculature due to the degree of inspiration. Tomas Randall Jr., MD Abdomen/Pelvis CT 06/12/17 0000 Signed Impressions: Service Date/Time: May 16:53 - CONCLUSION: 1. Apple core type lesion worrisome for colon cancer involving the sigmoid colon causing obstruction and worsening bowel gas pattern with multiple loops of borderline dilated air-containing small bowel now noted with multiple air-fluid levels. The degree of colonic distention is not significantly changed. Findings there are concerning for partial bowel obstruction. 2. Inflammatory change remains greatest in right side of the abdomen and pelvis. 3. New small pleural effusions with consolidation in both posterior lung bases. 4. A small amount of ascitic fluid is present which is increased from the prior study as well. Dr. Sanchez was notified of these findings. Daryl Rene MD Procedures 06/11/17 EGD Other Results Laboratory Tests Test 06/10/17 06/11/17 06/14/17 06/14/17 06:40 07:44 04:05 05:20 Carcinoembryonic Antigen 2.7 NG/ML CA 19-9 Antigen 7.3 U/ML Protein Corrected Calcium 8.0 MG/DL Nasal Screen MRSA (PCR) MRSA NOT DETECTED White Blood Count 7.2 TH/MM3 Red Blood Count 3.85 MIL/MM3 Hemoglobin 12.7 GM/DL Hematocrit 36.3 % Mean Corpuscular Volume 94.3 FL Mean Corpuscular Hemoglobin 32.9 PG Mean Corpuscular Hemoglobin 34.9 % Concent Red Cell Distribution Width 13.8 % Platelet Count 411 TH/MM3 Mean Platelet Volume 7.2 FL Neutrophils (%) (Auto) 76.8 % Lymphocytes (%) (Auto) 8.9 % Monocytes (%) (Auto) 13.7 % Eosinophils (%) (Auto) 0.3 % Basophils (%) (Auto) 0.3 % Neutrophils # (Auto) 5.5 TH/MM3 Lymphocytes # (Auto) 0.6 TH/MM3 Monocytes # (Auto) 1.0 TH/MM3 Eosinophils # (Auto) 0.0 TH/MM3 Basophils # (Auto) 0.0 TH/MM3 CBC Comment DIFF FINAL Differential Comment Sodium Level 137 MEQ/L Potassium Level 3.2 MEQ/L Chloride Level 103 MEQ/L Carbon Dioxide Level 24.6 MEQ/L Anion Gap 9 MEQ/L Blood Urea Nitrogen 10 MG/DL Creatinine 0.49 MG/DL Estimat Glomerular Filtration 168 ML/MIN Rate Random Glucose 101 MG/DL Calcium Level 7.5 MG/DL Magnesium Level 2.2 MG/DL Total Bilirubin 0.5 MG/DL Aspartate Amino Transf 20 U/L (AST/SGOT) Alanine Aminotransferase 15 U/L (ALT/SGPT) Alkaline Phosphatase 95 U/L Total Protein 5.4 GM/DL Albumin 2.3 GM/DL Medications and IVs Current Medications Medications (Trade) Dose Ordered Sig/Paolo Route Start Time Stop Time Status Last Admin (NS Flush) 2 ml UNSCH PRN IV FLUSH 06/09/17 00:30 (NS Flush) 2 ml BID IV FLUSH 06/09/17 09:00 06/11/17 08:08 (Zofran Inj) 4 mg Q6H PRN IVP 06/09/17 00:30 06/11/17 08:12 (Narcan Inj) 0.4 mg UNSCH PRN IV 06/09/17 00:30 (Romazicon Inj) 0.2 mg Q1M PRN IV PUSH 06/09/17 00:30 (Ativan) 1 mg Q4H PRN PO 06/09/17 00:30 06/09/17 17:52 (Ativan Inj) 1 mg Q4H PRN IV PUSH 06/09/17 00:30 (Ativan) 2 mg Q2H PRN PO 06/09/17 00:30 (Ativan Inj) 2 mg Q2H PRN IV PUSH 06/09/17 00:30 (Ativan Inj) 2 mg Q1H PRN IV PUSH 06/09/17 00:30 Lorazepam 2 mg 2 mg Q15M PRN IV PUSH 06/09/17 00:30 Piperacillin Sod/ Tazobactam Sod 50 ml @ 100 mls/hr Q6HR IV 06/09/17 06:00 06/14/17 11:05 (Mvi-12 Inj/ Folvite Inj/NS 500 ml Inj) 510.2 ml @ 125 mls/hr Q24H IV 06/09/17 17:00 06/14/17 16:59 06/13/17 17:00 (Vitamin B1) 100 mg DAILY PO 06/10/17 09:00 06/12/17 10:17 (Prinivil) 10 mg DAILY PO 06/10/17 11:00 Hold 06/13/17 09:15 (Mag-Al Plus Susp Liq) 30 ml Q6H PRN PO 06/10/17 17:00 (Tenormin) 25 mg DAILY PO 06/12/17 15:00 Hold 06/13/17 09:15 (Morphine Inj) 4 mg Q4H PRN IV 06/13/17 15:00 (Protonix Inj) 40 mg Q24H IV PUSH 06/13/17 13:00 06/14/17 12:54 (Catapres-Tts 0.1mg Patch.7d) 1 patch Q7D T-DERMAL 06/13/17 14:00 06/13/17 16:14 Miscellaneous Information ALL NURSING DEPARTME... UNSCH PRN .XX 06/13/17 16:45 06/14/17 16:44 (Lopressor Inj) 5 mg Q6HR IV PUSH 06/13/17 18:30 06/14/17 11:05 (Heparin Inj) 5,000 units Q8H SQ 06/14/17 09:00 06/14/17 08:27 (Vasotec Inj) 1.25 mg Q6H PRN IV PUSH 06/14/17 12:30 (Trandate Inj) 10 mg Q1HR PRN IV PUSH 06/14/17 07:00 06/14/17 12:56 (Apresoline Inj) 10 mg Q1HR PRN IV PUSH 06/14/17 07:00 06/14/17 09:53 (Nitroglycerin 2% Oint) 2 inch Q6HR PRN TOPICAL 06/14/17 07:00 Enalaprilat 1.25 mg 1.25 mg Q8H IV PUSH 06/14/17 07:00 06/14/17 14:39 Thiamine HCl 100 mg/Sodium Chloride 101 ml @ 101 mls/hr DAILY IV 06/14/17 09:00 06/14/17 08:25 (NS + KCl 20 Meq Inj) 1,000 ml @ 100 mls/hr Q10H IV 06/14/17 07:00 06/14/17 07:53 A/P Assessment and Plan 1. Acute diverticulitis: Appreciate GI recommendations. Status post EGD. Continue antibiotics, IV fluids. Continue Protonix. 2. Alcohol abuse: Patient drinks 6 beers per day. He has no interest in quitting. He was counseled on cessation. [facility] protocol. Withdrawal precautions. Continue thiamine, folate, multivitamin. 3. Hypertension: Continue lisinopril. Blood pressure has been elevated. Clonidine, Vasotec as needed. 4. Hypokalemia: Improved. 5. Hyponatremia: Mild, stable. 6. Colon mass: Management per GI, surgery. Sigmoidoscopy per GI. 7. Partial bowel obstruction: Nothing by mouth. DVT prophylaxis: Aline, ROGELIO monteiro. Mark Benson MD Jun 14, 2017 16:08
--- NOTE | 2017-06-14 17:34 | HHI.GIFU ---
Subjective Remarks Resting in bed. Pt was transferred to [facility] for respiratory issues after procedure yesterday. Breathing much improved. No distress. NGT, working on [employer] prep for surgery tomorrow. Passing liquid stool. (Deb Bhandari) Objective Vitals I&O Vital Signs Date Time Temp Pulse Resp B/P Pulse Ox O2 Delivery O2 Flow Rate FiO2 06/14/17 14:00 90 06/14/17 12:00 87 06/14/17 12:00 98.6 87 32 156/101 96 06/14/17 10:00 86 06/14/17 09:47 98 Nasal Cannula 3.00 06/14/17 09:12 97 4.00 06/14/17 09:00 156/84 06/14/17 08:00 79 06/14/17 08:00 98.3 83 18 184/94 96 06/14/17 06:30 179/91 06/14/17 06:00 86 06/14/17 06:00 86 22 173/95 98 06/14/17 05:00 83 19 149/91 97 06/14/17 04:00 98.7 82 18 182/95 98 06/14/17 04:00 82 06/14/17 03:30 99 Nasal Cannula 4.00 06/14/17 02:45 168/95 06/14/17 02:00 87 26 182/102 96 06/14/17 02:00 87 06/14/17 01:15 90 06/14/17 01:15 98.3 94 29 169/107 94 06/14/17 00:45 88 23 168/95 95 Nasal Cannula 4 06/13/17 23:00 89 22 143/90 97 Partial Non-Rebreather 4 06/13/17 22:00 99 24 165/100 95 Partial Non-Rebreather 10 06/13/17 21:00 98 22 162/96 95 Partial Non-Rebreather 10 06/13/17 20:00 96 20 140/83 95 Partial Non-Rebreather 10 06/13/17 19:00 102 22 164/89 95 Partial Non-Rebreather 10 06/13/17 18:00 107 21 154/88 94 Non-Rebreather 15 I/O 06/13/17 06/13/17 06/13/17 06/14/17 06/14/1719/17 07:00 15:00 23:00 07:00 15:00 23:00 Intake Total 700 ml 2000 ml 500 ml 1630 ml 2420 ml Output Total 220 ml 700 ml 1050 ml 1975 ml Balance 700 ml 1780 ml -200 ml 580 ml 445 ml Intake Oral 300 ml 0 ml 0 ml IV Total 400 ml 500 ml 1630 ml 920 ml Tube Irrigant 1500 ml Other 2000 ml Output Urine Total 450 ml 450 ml 475 ml Stool Total 250 ml 400 ml 1500 ml Gastric Drainage Total 200 ml 200 ml 0 ml Estimated Blood Loss 20 ml # Voids 2 1 # Bowel Movements 0 2 Laboratory Laboratory Tests Test 06/14/17 06/14/17 04:05 05:20 Nasal Screen MRSA (PCR) MRSA NOT DETECTED White Blood Count 7.2 Red Blood Count 3.85 Hemoglobin 12.7 Hematocrit 36.3 Mean Corpuscular Volume 94.3 Mean Corpuscular Hemoglobin 32.9 Mean Corpuscular Hemoglobin 34.9 Concent Red Cell Distribution Width 13.8 Platelet Count 411 Mean Platelet Volume 7.2 Neutrophils (%) (Auto) 76.8 Lymphocytes (%) (Auto) 8.9 Monocytes (%) (Auto) 13.7 Eosinophils (%) (Auto) 0.3 Basophils (%) (Auto) 0.3 Neutrophils # (Auto) 5.5 Lymphocytes # (Auto) 0.6 Monocytes # (Auto) 1.0 Eosinophils # (Auto) 0.0 Basophils # (Auto) 0.0 CBC Comment DIFF FINAL Differential Comment Sodium Level 137 Potassium Level 3.2 Chloride Level 103 Carbon Dioxide Level 24.6 Anion Gap 9 Blood Urea Nitrogen 10 Creatinine 0.49 Estimat Glomerular Filtration 168 Rate Random Glucose 101 Calcium Level 7.5 Magnesium Level 2.2 Total Bilirubin 0.5 Aspartate Amino Transf 20 (AST/SGOT) Alanine Aminotransferase 15 (ALT/SGPT) Alkaline Phosphatase 95 Total Protein 5.4 Albumin 2.3 Imaging Last Impressions GI Procedure 06/13/17 0000 Signed Impressions: Service Date/Time: Tuesday, June 13, 2017 13:43 - CONCLUSION: 1. Uncomplicated stenting of an obstructing mass in the distal sigmoid colon. Mika Curry MD Enema w/Water Soluble 06/13/17 0000 Signed Impressions: Service Date/Time: Tuesday, June 13, 2017 09:41 - CONCLUSION: Apple core type lesion involving the sigmoid colon is characteristic of colon cancer. Daryl Rene MD Chest X-Ray 06/13/17 0000 Signed Impressions: Service Date/Time: Tuesday, June 13, 2017 15:53 - CONCLUSION: Bibasilar infiltrates with small left effusion. I am unable to assess the pulmonary vasculature due to the degree of inspiration. Tomas Randall Jr., MD Abdomen/Pelvis CT 06/12/17 0000 Signed Impressions: Service Date/Time: May 16:53 - CONCLUSION: 1. Apple core type lesion worrisome for colon cancer involving the sigmoid colon causing obstruction and worsening bowel gas pattern with multiple loops of borderline dilated air-containing small bowel now noted with multiple air-fluid levels. The degree of colonic distention is not significantly changed. Findings there are concerning for partial bowel obstruction. 2. Inflammatory change remains greatest in right side of the abdomen and pelvis. 3. New small pleural effusions with consolidation in both posterior lung bases. 4. A small amount of ascitic fluid is present which is increased from the prior study as well. Dr. Sanchez was notified of these findings. Daryl Rene MD Physical Exam HEENT: Normocephalic; atraumatic; no jaundice. CHEST: Resp even/unlabored, diminished bases CARDIAC: RRR. ABDOMEN: Soft, mildly distended, mild tenderness; no hepatosplenomegaly; bowel sounds are present in all four quadrants. EXTREMITIES: No clubbing, cyanosis, or edema. SKIN: Normal; no rash; no jaundice. TIRE INSPECTOR: No focal deficits; alert and oriented times three. (Deb Bhandari [facility]) Assessment and Plan Plan ASSESSMENT: - Obstructive colon mass. No prior episodes of diverticulitis, no hx of egd/ colonoscopy. CT of the abdomen and pelvis with IV contrast (06/08/17)-----> Multifocal inflammatory changes of the right lower quadrant. There is wall thickening and adjacent inflammatory changes of the mid sigmiod colon. Most likely etiology for this finding is diverticulitis. Epicenter of inflammation there is either a prominent diverticulum or small abscess. Neoplasm also in the differential diagnosis. Circumferential wall thickening and prominent inflammatory changes are also seen at the distal ileum 10 cm proximal to the ileocecal valve. Differential diagnosis is infection and inflammatory bowel disease. Peripheral gas at the dependent portions of the cecum and transverse colon suggesting pseudo-pneumatosis of gas trapped between luminal fluid and the colon wall. No evidence of free air. No portal venous gas. Marked wall thickening of the distal esophagus. Pt had worsening obstructive symptoms on 06/12. Rpt CT Abdomen/Pelvis CT (06/12/17)-----> 1. Apple core type lesion worrisome for colon cancer involving the sigmoid colon causing obstruction and worsening bowel gas pattern with multiple loops of borderline dilated air-containing small bowel now noted with multiple air -fluid levels. The degree of colonic distention is not significantly changed. Findings there are concerning for partial bowel obstruction. 2. Inflammatory change remains greatest in right side of the abdomen and pelvis. 3. New small pleural effusions with consolidation in both posterior lung bases. 4. A small amount of ascitic fluid is present which is increased from the prior study as well. Barium enema (06/13/17) Apple core type lesion involving the sigmoid colon is characteristic of colon cancer. S/P Flexible Sigmoidoscopy with stent placement (06/13/17)--> Colon cancer with an obstructive mass in the sigmoid status post stent placement for decompression. GS following, being prepped for surgery tomorrow. - Esophagitis/abn. imaging of esophagus on CT with marked wall thickening of distal esophagus. He denies any hx of GERD. He has not had any decreased appetite or weight loss. S/P EGD (06/12/17)----> Distal esophagitis, pathology squamous mucosa with features of reflux esophagitis and acute ulceration at the squamocolumnar junction, small fragment of attached gastric mucosa with no evidence of metaplasia or dysplasia. PPI - ETOH abuse. 6-7 beers daily. PLAN: - NPO except meds - NGT, Getting bowel prep for surgery tomorrow - Plan is for patient to go to OR with Dr. Enrique tomorrow - GI will sign off, please reconsult as needed - Pt seen and examined by Dr. Marroquin and myself and this note is written on his behalf (Deb Bhandari) Physician Comments Plan as above, please notify us if needed. (Cliff Marroquin MD) Deb Bhandari Jun 14, 2017 17:34 Cliff Marroquin MD Jun 14, 2017 18:15
[2017-06-15] VITALS (13 sets, daily range): BP systolic 136–158; BP diastolic 77–87; PULSE 66–86; RESP 20–28; TEMP 97.8–98.9; O2SAT 95–99
[2017-06-15] MEDS: NS + KCL 20 MEQ INJ 1,000 ML IV SCH ×2 (02:28→13:00)
[2017-06-15] MEDS: RESP: ALBUTEROL 2.5 MG/IPRATROPIUM 0.5 MG NEB (SCH) NEB ×4 (03:18→20:06)
[2017-06-15 04:21] LABS: HEMATOCRIT 36.4 % (39.0-51.0); MEAN CELL VOLUME 94.4 FL (80.0-100.0); MEAN CORPUSCULAR HEMOGLOBIN 31.3 PG (27.0-34.0); MEAN CORPUSCULAR HGB CONC 33.2 % (32.0-36.0); PLATELET COUNT 438 TH/MM3 (150-450); RED BLOOD COUNT 3.86 MIL/MM3 (4.50-5.90); RED CELL DISTRIBUTION WIDTH 13.7 % (11.6-17.2); REVIEW FLAG FINAL; WHITE BLOOD COUNT 7.5 TH/MM3 (4.0-11.0)
[2017-06-15 04:49] LABS: BICARBONATE 22.5 MEQ/L (21.0-32.0)
[2017-06-15 04:59] LABS: POTASSIUM 2.4 MEQ/L (3.5-5.1)
[2017-06-15] MEDS ORDERED: POTASSIUM CHLORIDE 10 MEQ CONTROLLED RELEASE TAB PO ONE (05:45)
[2017-06-15] MEDS: METOPROLOL TARTRATE 5 MG/5 ML VIAL IV PUSH SCH ×4 (05:47→23:05)
[2017-06-15] MEDS: PIPERACIL-TAZO 3.375 GM PREMIX 50 ML IV SCH ×4 (05:47→23:05)
[2017-06-15] MEDS: POTASSIUM CHLOR 10 MEQ PREMIX 100 ML IV SCH ×6 (06:01→10:45)
--- NOTE | 2017-06-15 06:32 | HHI.CCPN ---
Subjective Remarks/Hospital Course 72 y/o man with obstructing sigmoid mass and proximal bowel dilation. Flex sigmoidoscopy today abd colon stent placed. COPD, hypertension. He required a NRBM to maintain sats > 90% and has been kept in PACU, slotted for an ICU bed. Convert beta mariana and jeniffer inhibitor to IV until PO tolerance observed. Bronchodilators. 06/14: Currently nasal cannula at 4 L. Afebrile. Denies anxiety, chest pain or shortness of breath. Abdomen less distended status post sigmoid stent placement. Plan for or next [address] Lee Subjective 06/15: 3 L nasal cannula. Multiple bowel movements last night. Complaining of pain/burning were KCl's being infused currently. Potassium 2.4 the same. Receiving 80 mEq through tube. Intra venous Potassium also been provided. Objective Vital Signs Date Time Temp Pulse Resp B/P Pulse Ox O2 Delivery O2 Flow Rate FiO2 06/15/17 04:00 98.7 78 20 137/79 96 06/14/17 20:40 Nasal Cannula 3.00 06/13/17 15:15 60 Intake and Output 06/14/17 06/14/17 06/15/17 08:00 16:00 00:00 Intake Total 1630 ml 2420 ml 1075 ml Output Total 1050 ml 1975 ml 6650 ml Balance 580 ml 445 ml -5575 ml Result Diagram: 06/15/17 0310 06/15/17 0310 Imaging Last Impressions GI Procedure 06/13/17 0000 Signed Impressions: Service Date/Time: Tuesday, June 13, 2017 13:43 - CONCLUSION: 1. Uncomplicated stenting of an obstructing mass in the distal sigmoid colon. Mika Curry MD Enema w/Water Soluble 06/13/17 0000 Signed Impressions: Service Date/Time: Tuesday, June 13, 2017 09:41 - CONCLUSION: Apple core type lesion involving the sigmoid colon is characteristic of colon cancer. Daryl Rene MD Chest X-Ray 06/13/17 0000 Signed Impressions: Service Date/Time: Tuesday, June 13, 2017 15:53 - CONCLUSION: Bibasilar infiltrates with small left effusion. I am unable to assess the pulmonary vasculature due to the degree of inspiration. Tomas Randall Jr., MD Abdomen/Pelvis CT 06/12/17 0000 Signed Impressions: Service Date/Time: May 16:53 - CONCLUSION: 1. Apple core type lesion worrisome for colon cancer involving the sigmoid colon causing obstruction and worsening bowel gas pattern with multiple loops of borderline dilated air-containing small bowel now noted with multiple air-fluid levels. The degree of colonic distention is not significantly changed. Findings there are concerning for partial bowel obstruction. 2. Inflammatory change remains greatest in right side of the abdomen and pelvis. 3. New small pleural effusions with consolidation in both posterior lung bases. 4. A small amount of ascitic fluid is present which is increased from the prior study as well. Dr. Sanchez was notified of these findings. Daryl Rene MD Objective Remarks GENERAL: 72-year-old male, resting in bed in no acute distress on nasal cannula SKIN: Warm and dry. Well perfused HEAD: Atraumatic. Normocephalic. EYES: Pupils equal and round about 3 mm bilaterally and reactive. No scleral icterus. No injection or drainage. ENT: No nasal bleeding or discharge. Mucous membranes pink and moist. NG tube in right nares. NECK: Trachea midline. No JVD. CARDIOVASCULAR: Regular rate and rhythm. S1, S2. No S4. RESPIRATORY: Essentially clear to auscultation bilaterally without wheezes rales or rhonchi. Breath sounds equal bilaterally. GASTROINTESTINAL: Abdomen soft, non-tender, slightly protuberant. Hypoactive bowel sounds are appreciated. MUSCULOSKELETAL: Extremities without noted in peripheral edema. No obvious deformities. NEUROLOGICAL: Awake and alert. No obvious cranial nerve deficits. Motor grossly within normal limits. Five out of 5 muscle strength in the arms and legs. Normal speech. PSYCHIATRIC: Appropriate mood and affect; insight and judgment normal. Procedures 06/11/17 EGD A/P Assessment and Plan Neuro: History of EtOH use History of THC use History of cataracts Patient's been treated with thiamine, folic acid and multivitamin. Currently on thiamine 100 mg IV daily Morphine for pain management Monitor for DTs. Currently on a clonidine patch/CIWA protocol CV: Hypertension Creatinine schedule metoprolol 5 mill grams IV every 6 hours and enalaprilat 1.25 mg every 8 hours. As needed labetalol, hydralazine, Nitropaste and enalaprilat Continue clonidine patch 0.1 mg weekly Resp: Postprocedure respiratory failure resolved COPD Currently on nasal cannula at 3 L. Titrate to maintain saturations greater than equal to 92% Incentive spirometry while awake Schedule albuterol/ipratropium every 6 hours with albuterol every 2 hours. Dyspnea Follow-up on a.m. chest x-ray 06/16 GI: Status post sigmoid stents secondary to obstructing mass Sigmoid diverticulosis Status post IR placement of sigmoid 06/13. Plan the OR with general surgery Friday at 9 AM Nasogastric tube in right nares currently to low intermittent wall suction Pantoprazole for GI prophylaxis : No indication for Castelan catheter Endo: Sliding scale insulin if needed Renal: Monitor urine output Accurate I's and O's Currently on normal saline with 20 mEq of KCl 100 cc an hour. Heme: Normocytic anemia Monitor CBCs daily. Follow trends. No indication for transfusion of blood product at this time. ID: Monitor for infection FEN: Hypokalemia Adjust IV fluids. 80 mEq by tube/60 mEq KCl IV 1 recheck in AM. Check magnesium today. Access - Utilize peripheral IV. Central line if indicated Prophylaxis - GI - pantoprazole - DVT heparin subcutaneous on hold for surgery Level II follow-up: Vitaly Rowan MD Jun 15, 2017 06:32
[2017-06-15] MEDS: ENALAPRILAT 1.25 MG/ML VIAL IV PUSH SCH ×3 (06:56→23:00)
[2017-06-15] MEDS ORDERED: POTASSIUM CHLORIDE 20 MEQ PWD PACKET NG SCH (07:00)
[2017-06-15] MEDS ORDERED: BUPIVACAINE/EPINEPHRINE 0.25% 50 ML VIAL ONE (07:04)
[2017-06-15] MEDS ORDERED: DEXTROSE 50% IN WATER 50 ML VIAL(D50) IV PRN (07:30)
[2017-06-15] MEDS ORDERED: GLUCAGON 1 MG/ML VIAL IM PRN (07:30)
[2017-06-15] MEDS: SODIUM CHLORIDE 0.9% FLUSH 10 ML FLUSH IV FLUSH SCH ×2 (07:50→21:00)
[2017-06-15] MEDS: THIAMINE INJ 100 MG in SODIUM CHLORIDE 0.9% INJ 100 ML IV SCH (09:00)
[2017-06-15] MEDS ORDERED: PIPERACIL-TAZO 4.5 GM PREMIX 100 ML IV ONE (09:00)
[2017-06-15] MEDS ORDERED: fentaNYL CITRATE 250 MCG/5 ML AMP ONE (09:21)
[2017-06-15 11:18] LABS: BICARBONATE 20.1 MEQ/L (21.0-32.0); POTASSIUM 3.9 MEQ/L (3.5-5.1)
[2017-06-15] MEDS ORDERED: *LABETALOL HCL 100 MG/20 ML VIAL PERIprocedural Use ONLY ONE (11:58)
[2017-06-15] MEDS ORDERED: *ENALAPRILAT 1.25 MG/ML VIAL PERIprocedural Use ONLY ONE (11:58)
[2017-06-15] MEDS ORDERED: NEOSTIGMINE 3 MG/3 ML SYR IV ONE (12:00)
[2017-06-15] MEDS ORDERED: LACTATED RINGER'S 1000 ML INJ 1,000 ML IV ONE (12:00)
[2017-06-15] MEDS ORDERED: ONDANSETRON HCL 4 MG/2 ML VIAL IV PUSH ONE (12:00)
[2017-06-15] MEDS ORDERED: PHENYLEPH/NS 1000 MCG/10 ML SYR IV ONE (12:00)
[2017-06-15] MEDS ORDERED: PROPOFOL 200 MG/20 ML AMP IV ONE (12:00)
[2017-06-15] MEDS ORDERED: *morphine SULFATE 8 MG/ML PERIprocedure ONLY ONE ×2 (12:12→12:45)
[2017-06-15] MEDS: PANTOPRAZOLE SODIUM 40 MG VIAL IV PUSH SCH (13:00)
[2017-06-15] MEDS ORDERED: DO NOT ADM ANY ANTICOAGULANT DRUGS PRN (14:15)
[2017-06-15] MEDS: LACTATED RINGER'S 1000 ML INJ 1,000 ML IV SCH ×2 (14:50→20:03)
[2017-06-15] MEDS: hydrALAZINE HCL 20 MG/ML VIAL IV PUSH PRN (14:51)
[2017-06-15] MEDS: MORPHINE SULFATE 4 MG/ML INJ IV PRN ×4 (15:20→23:05)
--- NOTE | 2017-06-15 16:16 | MP ---
cc: MD TIM,JEROME DATE OF SURGERY: 06/15/2017. PREOPERATIVE DIAGNOSIS: Carcinoma of the rectosigmoid. POSTOPERATIVE DIAGNOSIS: Carcinoma of the rectosigmoid. OPERATIVE PROCEDURE PERFORMED: Low anterior resection with primary anastomosis and takedown of the splenic flexure. SURGEON: Jerome Enrique M.D. ANESTHESIA: General. ESTIMATED BLOOD LOSS: 150 cc. DESCRIPTION OF THE PROCEDURE IN DETAIL: The patient was prepped and draped in the usual fashion after being placed in stirrups. A midline incision was made. The abdomen was entered. Upon entry to the abdomen, there was some fluid, which was suctioned off. Small and large bowel were now run. The small bowel was run down from the ligament of Treitz to the ileocecal valve and it appeared to be fine. The large bowel was now run. The cecum was fairly distended for the last few days but otherwise appeared to be well perfused. The ascending and transverse colon were okay. The descending colon appeared to be normal. The sigmoid colon proximal portion was normal. The distal sigmoid to the peritoneal reflection appeared to be inflamed and there was a large mass in the distal sigmoid measuring about 6 cm in diameter. This was inflamed and surrounded by the rest of the bowel; however, not attached to anything else. The inflamed mass was hard to interline clerk as far as the extent of the tumor, whether the tumor was actually extending to serosa or if this was just inflammatory reaction. Either way, the mass was large and a stent was in the middle of the mass. The liver was palpated and did not appear to have any masses in it or metastatic deposits. The spleen appeared to be normal and so was the diaphragm. The Bookwalter retractors were now positioned and everything packed off. The sigmoid was now pulled medially and mobilized by incising the mesosigmoid peritoneum and then using white line of Toldt, this was extended upward to the descending colon. The sigmoid was now freed up first. It was attended distally. An incision was made in the peritoneal reflection and tissue was dissected down another inch or so in order to have enough space and comfortably fire stapler. A TA 60 was fired across and then a non-crushing clamp was placed on the bowel. The bowel was transected. This created a nice Sal pouch for the anastomosis. The mesosigmoid was now serially clamped with Ida clamps, divided and ligated with 2-0 Vicryl stick ties and 2-0 silk stick ties. The left ureter was carefully identified and preserved. The peritoneum was taken down all the way to the vessels in a wide margin. This was continued up to the proximal sigmoid and the distal descending colon. Now the level of amputation for the bowel was chosen and this was amputated with the FLORESITA stapler. The specimen was removed. Meticulous hemostasis was again assured. The descending colon did not quite reach down; therefore, the splenic flexure was now freed up by careful dissection in order to gain the length of the bowel so we had a tension-free anastomosis. When this was accomplished, the bowel was prepared for anastomosis. A small incision was made in the distal portion of the colon and through this, the EEA anvil was placed and then the stapler was fired across removing another inch or so of the bowel. The anvil was now pushed through the tinea libera. Now I went down the patient's legs and a size 33 EEA was now chosen as the appropriate one. This one was passed up into the Sal pouch and then pierced through the anterior portion. Both ends of the EEA were now connected then the EEA staple line fired. Some saline was now placed in the abdomen and with the rigid sigmoidoscope, the anastomosis was checked for integrity. No bubbles were noted after insufflation and this portion of the procedure was terminated. By the way, the patient had an excellent prep. At this point, the surgeon, dyer assistant and all the scrubbed -in staff washed their hands, changed gloves and gowns and the area was packed off. An additional layer of 3-0 silk Lembert seromuscular stitches were now placed circumferentially around the anastomosis and then the space between the colon and the retroperitoneum were obliterated by placing a few 2-0 Vicryl stitches in order to prevent herniation of the small bowel through this opening. The abdomen was now irrigated with copious amounts of saline. Once more, the anastomosis was checked. The small bowel was run. The large bowel was run and then the abdomen was irrigated with two more liters of saline. A #10 flat David-Peace was placed in the pelvis and then the abdomen was closed in layers using #1 PDS looping rome. The patient tolerated the procedure well and was taken out of the operating room in stable condition. Jerome HO/EULALIA /12:45 PM /3:58 PM
[2017-06-15 16:45] LABS: MAGNESIUM 1.9 MG/DL (1.5-2.5); POTASSIUM 3.8 MEQ/L (3.5-5.1)
[2017-06-16] VITALS (13 sets, daily range): BP systolic 119–165; BP diastolic 65–90; PULSE 72–98; RESP 14–19; TEMP 98.5–99.2; O2SAT 95–96
[2017-06-16] MEDS: LACTATED RINGER'S 1000 ML INJ 1,000 ML IV SCH ×2 (03:21→08:00)
[2017-06-16] MEDS: RESP: ALBUTEROL 2.5 MG/IPRATROPIUM 0.5 MG NEB (SCH) NEB ×4 (04:24→20:21)
[2017-06-16] MEDS: PIPERACIL-TAZO 3.375 GM PREMIX 50 ML IV SCH ×4 (05:39→23:32)
[2017-06-16] MEDS: METOPROLOL TARTRATE 5 MG/5 ML VIAL IV PUSH SCH ×2 (05:40→12:32)
[2017-06-16 06:15] LABS: AUTOMATED NEUTROPHIL # 10.7 TH/MM3 (1.8-7.7); BASOPHIL % 0.2 % (0.0-2.0); EOSINOPHIL % 0.3 % (0.0-4.0); HEMATOCRIT 37.6 % (39.0-51.0); HEMO FLAGS DIFF FINAL; LYMPH % 5.6 % (9.0-44.0); LYMPHOCYTE # 0.7 TH/MM3 (1.0-4.8); MEAN CELL VOLUME 94.4 FL (80.0-100.0); MEAN CORPUSCULAR HEMOGLOBIN 31.6 PG (27.0-34.0); MEAN CORPUSCULAR HGB CONC 33.5 % (32.0-36.0); MONO % 5.8 % (0.0-8.0); NEUT % 88.1 % (16.0-70.0); PLATELET COUNT 410 TH/MM3 (150-450); RED BLOOD COUNT 3.99 MIL/MM3 (4.50-5.90); WHITE BLOOD COUNT 12.1 TH/MM3 (4.0-11.0)
[2017-06-16] MEDS: MORPHINE SULFATE 4 MG/ML INJ IV PRN ×3 (06:19→17:57)
[2017-06-16 07:03] LABS: ALT (GPT) 12 U/L (12-78); ANION GAP 11 MEQ/L (5-15); AST (GOT) 15 U/L (15-37); BICARBONATE 22.6 MEQ/L (21.0-32.0); BLOOD UREA NITROGEN 7 MG/DL (7-18); CHLORIDE 104 MEQ/L (98-107); GLOMERULAR FILTRATION RATE 176 ML/MIN (>89); POTASSIUM 3.5 MEQ/L (3.5-5.1); SODIUM (NA) 138 MEQ/L (136-145)
[2017-06-16 07:05] LABS: ALKALINE PHOSPHATASE 63 U/L (45-117); TOTAL BILIRUBIN ADULT 0.4 MG/DL (0.2-1.0)
[2017-06-16] MEDS: THIAMINE INJ 100 MG in SODIUM CHLORIDE 0.9% INJ 100 ML IV SCH (08:18)
[2017-06-16] MEDS: ENALAPRILAT 1.25 MG/ML VIAL IV PUSH SCH ×3 (08:18→23:30)
[2017-06-16] MEDS: SODIUM CHLORIDE 0.9% FLUSH 10 ML FLUSH IV FLUSH SCH ×2 (08:19→21:41)
[2017-06-16] MEDS: SODIUM CHLOR 0.9% 1000 ML INJ 1,000 ML IV SCH ×2 (10:00→20:34)
--- NOTE | 2017-06-16 10:41 | PD.CAR.PN ---
CVT Progress Note Subjective/Hospital Course: Referral received Full consult LOUISE J 06/10/17 Abdomen is soft patient states more tender in the right lower quadrant. No guarding however patient does have rebound tenderness Leukocytosis resolved The primary diagnosis seems to be somewhat unclear. We'll patient may have left sided diverticulitis this pattern of presentation is usually associated with pancolitis either infectious or related to later presentation of some sort of granulomatous disease like ulcerative colitis. All in all when everything calms down the patient will need colonoscopy with biopsies to establish the actual nature of this problem Based on the final diagnosis will best be able to decide when and in what fashion to proceed with surgery. Would continue IV antibiotics 06/11/17 Patient is improved subjectively. Remains afebrile and leukocytosis is resolved Abdomen is soft with active bowel sounds mix mill tender in the right lower quadrant but no rebound or guarding is noted EGD consistent with esophagitis Would continue current care and after colonoscopy we will decide how to proceed depending on the biopsies 06/12/17 Patient more tender diffusely No rebound or guarding Distended.Patient definitely has an ileus,b ut he may have a developing distal large bowel obstruction, considering that he remains distended 4 days into the therapy. CT scan may be revealing possible distal sigmoid mass. Discussed with Dr Curry. Suggest decrease narcotics, gastrografin enema tomorrow am, for patient will eventually develop ischemia and perforation if obstruction and dilatation persists. No acute abdomen requiring surgery at this time. If positive for a mass, patient will need decompressive colonoscopy, vs colon resection/decompression 06/13/17 Gastrografin enema confirms partial obstruction with a distal sigmoid mass. Discussed with gastroenterology Dr. James and the best way out of this would be sigmoidoscopy with a stent placement followed by washout and then definitive surgery next 48 hours. If this is not successful and we cannot decompress the patient then I will go ahead with surgery today. Have explained to the patient that he may and up with a temporary colostomy if were unable to wash the patient out and decompress 06/14/17 Patient underwent sigmoidoscopy with successful deployment off a stent. Sigmoidoscopy reveals friable low sigmoid/high rectal mass at the level of peritoneal reflection, consistent with carcinoma of the colon Mass was nearly completely obstructing the distal sigmoid and with placement of a stent patient passed a large amount of gas and liquid stool Post colonoscopy patient was transferred to ICU because of respiratory insufficiency, yet this has improved since. After the surgery patient will return to the same ICU sodium as well stay here overnight. Will give GoLYTELY through NG tube today and take patient to the operating room tomorrow for low anterior resection I've discussed risks and benefits with the patient 06/16/17 Patient status post low anterior resection with primary anastomosis Incisions clean and dry Abdomen is soft with few bowel sounds Plan Transferred to floor Out of bed with binder Keep Castelan and NG tube in place Keep David-Peace in place Decrease IV fluid rate In face off previous symptoms would continue Zosyn for another 48 hours Objective: Vital Signs Date Time Temp Pulse Resp B/P (MAP) Pulse Ox O2 Delivery O2 Flow Rate FiO2 06/16/17 07:55 96 Nasal Cannula 4.00 06/16/17 06:24 15 06/16/17 06:00 72 06/16/17 04:00 78 06/16/17 04:00 98.5 98 15 132/72 (92) 96 06/16/17 02:00 74 06/16/17 00:00 98.7 72 14 119/65 (83) 96 06/16/17 00:00 72 06/15/17 22:00 86 06/15/17 20:06 96 Nasal Cannula 4.00 06/15/17 20:00 83 06/15/17 20:00 98.6 83 22 158/79 (105) 99 06/15/17 19:00 100 Nasal Cannula 4.00 06/15/17 18:00 75 06/15/17 16:00 98.2 84 22 136/77 (96) 96 06/15/17 16:00 84 06/15/17 14:00 66 06/15/17 13:20 67 06/15/17 13:00 97.8 67 28 153/87 (109) 97 Labs: Laboratory Tests Test 06/16/17 05:07 White Blood Count 12.1 TH/MM3 (4.0-11.0) Red Blood Count 3.99 MIL/MM3 (4.50-5.90) Hemoglobin 12.6 GM/DL (13.0-17.0) Hematocrit 37.6 % (39.0-51.0) Mean Corpuscular Volume 94.4 FL (80.0-100.0) Mean Corpuscular Hemoglobin 31.6 PG (27.0-34.0) Mean Corpuscular Hemoglobin Concent 33.5 % (32.0-36.0) Red Cell Distribution Width 14.0 % (11.6-17.2) Platelet Count 410 TH/MM3 (150-450) Mean Platelet Volume 7.2 FL (7.0-11.0) Neutrophils (%) (Auto) 88.1 % (16.0-70.0) Lymphocytes (%) (Auto) 5.6 % (9.0-44.0) Monocytes (%) (Auto) 5.8 % (0.0-8.0) Eosinophils (%) (Auto) 0.3 % (0.0-4.0) Basophils (%) (Auto) 0.2 % (0.0-2.0) Neutrophils # (Auto) 10.7 TH/MM3 (1.8-7.7) Lymphocytes # (Auto) 0.7 TH/MM3 (1.0-4.8) Monocytes # (Auto) 0.7 TH/MM3 (0-0.9) Eosinophils # (Auto) 0.0 TH/MM3 (0-0.4) Basophils # (Auto) 0.0 TH/MM3 (0-0.2) CBC Comment DIFF FINAL Differential Comment Blood Urea Nitrogen 7 MG/DL (7-18) Creatinine 0.47 MG/DL (0.60-1.30) Random Glucose 73 MG/DL (74-106) Total Protein 5.1 GM/DL (6.4-8.2) Albumin 1.9 GM/DL (3.4-5.0) Calcium Level 7.8 MG/DL (8.5-10.1) Phosphorus Level 2.4 MG/DL (2.5-4.9) Magnesium Level 2.0 MG/DL (1.5-2.5) Alkaline Phosphatase 63 U/L (45-117) Aspartate Amino Transf (AST/SGOT) 15 U/L (15-37) Alanine Aminotransferase (ALT/SGPT) 12 U/L (12-78) Total Bilirubin 0.4 MG/DL (0.2-1.0) Sodium Level 138 MEQ/L (136-145) Potassium Level 3.5 MEQ/L (3.5-5.1) Chloride Level 104 MEQ/L (98-107) Carbon Dioxide Level 22.6 MEQ/L (21.0-32.0) Anion Gap 11 MEQ/L (5-15) Estimat Glomerular Filtration Rate 176 ML/MIN (>89) Result Diagram: 06/16/17 0507 06/16/17 0507 Trinh Enrique MD Jun 16, 2017 10:41
--- NOTE | 2017-06-16 11:42 | HHI.CCPN ---
Subjective Remarks/Hospital Course 72 y/o man with obstructing sigmoid mass and proximal bowel dilation. Flex sigmoidoscopy today abd colon stent placed. COPD, hypertension. He required a NRBM to maintain sats > 90% and has been kept in PACU, slotted for an ICU bed. Convert beta mariana and jeniffer inhibitor to IV until PO tolerance observed. Bronchodilators. 06/14: Currently nasal cannula at 4 L. Afebrile. Denies anxiety, chest pain or shortness of breath. Abdomen less distended status post sigmoid stent placement. Plan for or next [address] Mcbride. Subjective 06/15: 3 L nasal cannula. Multiple bowel movements last night. Complaining of pain/burning were KCl's being infused currently. Potassium 2.4 the same. Receiving 80 mEq through tube. Intra venous Potassium also been provided. 06/16: Complaints of mild to moderate pain, but otherwise feeling better. good O2 sats, having BM. s/p Low anterior resection with primary anastomosis and takedown of the splenic flexure by Dr. Mcbride 06/15/17 Objective Vital Signs Date Time Temp Pulse Resp B/P (MAP) Pulse Ox O2 Delivery O2 Flow Rate FiO2 06/16/17 07:55 96 Nasal Cannula 4.00 06/16/17 06:24 15 06/16/17 06:00 72 06/16/17 04:00 98.5 132/72 (92) 06/13/17 15:15 60 Intake and Output 06/16/17 06/16/17 06/16/17 07:59 15:59 23:59 Intake Total 1005 ml Output Total 445 ml Balance 560 ml Result Diagram: 06/16/17 0507 06/16/17 0507 Imaging Last Impressions GI Procedure 06/13/17 0000 Signed Impressions: Service Date/Time: Tuesday, June 13, 2017 13:43 - CONCLUSION: 1. Uncomplicated stenting of an obstructing mass in the distal sigmoid colon. Mika Curry MD Enema w/Water Soluble 06/13/17 0000 Signed Impressions: Service Date/Time: Tuesday, June 13, 2017 09:41 - CONCLUSION: Apple core type lesion involving the sigmoid colon is characteristic of colon cancer. Daryl Rene MD Chest X-Ray 06/13/17 0000 Signed Impressions: Service Date/Time: Tuesday, June 13, 2017 15:53 - CONCLUSION: Bibasilar infiltrates with small left effusion. I am unable to assess the pulmonary vasculature due to the degree of inspiration. Tomas Randall Jr., MD Abdomen/Pelvis CT 06/12/17 0000 Signed Impressions: Service Date/Time: May 16:53 - CONCLUSION: 1. Apple core type lesion worrisome for colon cancer involving the sigmoid colon causing obstruction and worsening bowel gas pattern with multiple loops of borderline dilated air-containing small bowel now noted with multiple air-fluid levels. The degree of colonic distention is not significantly changed. Findings there are concerning for partial bowel obstruction. 2. Inflammatory change remains greatest in right side of the abdomen and pelvis. 3. New small pleural effusions with consolidation in both posterior lung bases. 4. A small amount of ascitic fluid is present which is increased from the prior study as well. Dr. Sanchez was notified of these findings. Daryl Rene MD Objective Remarks GENERAL: 72-year-old male, resting in bed in no acute distress on nasal cannula SKIN: Warm and dry. Well perfused HEAD: Atraumatic. Normocephalic. EYES: Pupils equal and round about 3 mm bilaterally and reactive. No scleral icterus. No injection or drainage. ENT: No nasal bleeding or discharge. Mucous membranes pink and moist. NG tube in right nares. NECK: Trachea midline. No JVD. CARDIOVASCULAR: Regular rate and rhythm. S1, S2. No S4. RESPIRATORY: Clear to auscultation bilaterally without wheezes rales or rhonchi. Breath sounds equal bilaterally. GASTROINTESTINAL: Abdomen soft, non-tender, slightly protuberant. Hypoactive bowel sounds are appreciated. Abdominal binder in place MUSCULOSKELETAL: Extremities without noted in peripheral edema. No obvious deformities. NEUROLOGICAL: Awake and alert. No obvious cranial nerve deficits. Motor grossly within normal limits. Five out of 5 muscle strength in the arms and legs. Procedures 06/11/17 EGD A/P Assessment and Plan Neuro: History of EtOH use History of THC use History of cataracts Patient's been treated with thiamine, folic acid and multivitamin. Morphine for pain management Monitor for DTs. Currently on a clonidine patch/CIWA protocol CV: Hypertension Scheduled metoprolol 5 mill grams IV every 6 hours and enalaprilat 1.25 mg every 8 hours. As needed labetalol, hydralazine, Nitropaste and enalaprilat Continue clonidine patch 0.1 mg weekly Resp: Postprocedure respiratory failure resolved COPD Currently on nasal cannula at 4 L. Titrate to maintain saturations greater than equal to 90% Incentive spirometry while awake. Schedule albuterol/ipratropium every 6 hours with albuterol every 2 hours. Follow-up on a.m. chest x-ray 06/16 GI: Status post sigmoid stents secondary to obstructing mass Sigmoid diverticulosis Status post IR placement of sigmoid stent 06/13. Plan the OR with general surgery Friday at 9 AM Nasogastric tube in right nares currently to low intermittent wall suction Pantoprazole for GI prophylaxis : No indication for Castelan catheter Endo: Sliding scale insulin if needed Renal: Monitor urine output Accurate I's and O's Heme: Normocytic anemia Monitor CBCs daily. Follow trends. No indication for transfusion of blood product at this time. ID: Monitor for infection FEN: Hypokalemia Replace electrolytes per protocol - Utilize peripheral IV. Central line if indicated Prophylaxis - GI - pantoprazole - DVT heparin subcutaneous on hold for surgery Level II follow-up: Dr. Mcbride has requested transfer to floor. i will consult [facility] to assume care in am Shirlene Zaman MD Jun 16, 2017 11:42
[2017-06-16] MEDS: PANTOPRAZOLE SODIUM 40 MG VIAL IV PUSH SCH (12:32)
[2017-06-16] MEDS: ENOXAPARIN SODIUM 40 MG/0.4 ML SYRINGE SQ SCH (13:50)
[2017-06-16] MEDS: hydrALAZINE HCL 20 MG/ML VIAL IV PUSH PRN (14:12)
[2017-06-16] MEDS: METOPROLOL TARTRATE 50 MG TAB PO SCH ×2 (17:24→21:45)
[2017-06-17] VITALS (7 sets, daily range): BP systolic 153–167; BP diastolic 79–92; PULSE 73–90; RESP 18–19; TEMP 96.8–99.4; O2SAT 92–98
[2017-06-17] MEDS: RESP: ALBUTEROL 2.5 MG/IPRATROPIUM 0.5 MG NEB (SCH) NEB ×4 (04:16→20:01)
[2017-06-17] MEDS: ENALAPRILAT 1.25 MG/ML VIAL IV PUSH SCH ×3 (06:03→23:24)
[2017-06-17] MEDS: SODIUM CHLOR 0.9% 1000 ML INJ 1,000 ML IV SCH (06:03)
[2017-06-17] MEDS: PIPERACIL-TAZO 3.375 GM PREMIX 50 ML IV SCH ×4 (06:03→23:19)
[2017-06-17] MEDS: METOPROLOL TARTRATE 50 MG TAB PO SCH ×3 (06:04→21:55)
[2017-06-17] MEDS: SODIUM CHLORIDE 0.9% FLUSH 10 ML FLUSH IV FLUSH SCH ×2 (09:00→21:55)
--- NOTE | 2017-06-17 09:11 | RADRPT ---
EXAM DATE/TIME: 06/12/2017 17:10 [place] COMPARISON: CT ABDOMEN & PELVIS W CONTRAST, June 08, 2017, 22:00. CT ABDOMEN & PELVIS W CONTRAST, June 12, 017, 16:53. CHEST PA & LAT, June 08, 2017, 21:47. INDICATIONS : Evaluate for small bowel obstruction. MEDICAL HISTORY : None. SURGICAL HISTORY : None. ENCOUNTER: Subsequent ACUITY: 3 days PAIN SCORE: 10/10 LOCATION: Abdomen, uppper quadrant. FINDINGS: The exam demonstrates a fluid-filled, gaseous distended colon. The cecum measures approximately 9.3 c m in transverse diameter. There is a small amount of gas which I believe is superimposed between liqu id stool in the colon wall involving the inter aspect of the cecum. Follow up examination to exclude pneumatosis is warranted. There is no free air. There is no gas within the portal venous system. Of note, there is essentially a colon cutoff sign in the distal sigmoid. Review of the patient's CT s can raises concern for a obstructing mass in the distal sigmoid. Gastrografin evaluation or colonosco py would be warranted for further assessment. CONCLUSION: Gaseous distention of the colon as above. There is possible obstruction in the distal sigmoid. Mika Curry MD on June 12, 2017 at 17:37 Board Certified Radiologist. This report was verified electronically.
[2017-06-17] MEDS: THIAMINE INJ 100 MG in SODIUM CHLORIDE 0.9% INJ 100 ML IV SCH (10:28)
--- NOTE | 2017-06-17 10:45 | HHI.PR ---
Subjective Remarks resting comfortably with no distress. pain is controlled. no nausea or vomiting. afebrile. Objective Vitals Vital Signs Date Time Temp Pulse Resp B/P (MAP) Pulse Ox O2 Delivery O2 Flow Rate FiO2 06/17/17 08:00 98.6 78 18 164/92 (116) 96 06/17/17 07:37 93 Nasal Cannula 3.00 06/17/17 04:00 96.8 83 19 162/85 (110) 92 06/17/17 01:00 Nasal Cannula 3.00 06/17/17 00:00 () 06/17/17 00:00 99.3 73 19 163/83 (109) 98 06/16/17 20:36 Nasal Cannula 3.00 06/16/17 20:21 96 Nasal Cannula 4.00 06/16/17 20:00 99.0 79 19 165/84 (111) 96 06/16/17 18:00 84 06/16/17 16:00 99.2 94 18 148/71 (96) 95 06/16/17 16:00 94 06/16/17 14:00 78 06/16/17 12:00 90 06/16/17 12:00 98.9 90 19 163/90 (114) 96 I/O 06/16/17 06/16/17 06/16/17 06/17/17 06/17/17 06/17/17 07:00 15:00 23:00 07:00 15:00 23:00 Intake Total 1005 ml 1027 ml 576 ml 1030 ml Output Total 445 ml 560 ml 600 ml 710 ml Balance 560 ml 467 ml -24 ml 320 ml Intake Oral 0 ml 0 ml IV Total 1005 ml 1027 ml 576 ml 1030 ml Output Urine Total 375 ml 450 ml 600 ml 700 ml Gastric Drainage Total 50 ml 100 ml Drainage Total 20 ml 10 ml 10 ml # Bowel Movements 0 0 0 Result Diagram: 06/16/17 0507 06/16/17 0507 Imaging Last Impressions GI Procedure 06/13/17 0000 Signed Impressions: Service Date/Time: Tuesday, June 13, 2017 13:43 - CONCLUSION: 1. Uncomplicated stenting of an obstructing mass in the distal sigmoid colon. Mika Curry MD Enema w/Water Soluble 06/13/17 0000 Signed Impressions: Service Date/Time: Tuesday, June 13, 2017 09:41 - CONCLUSION: Apple core type lesion involving the sigmoid colon is characteristic of colon cancer. Daryl Rene MD Chest X-Ray 06/13/17 0000 Signed Impressions: Service Date/Time: Tuesday, June 13, 2017 15:53 - CONCLUSION: Bibasilar infiltrates with small left effusion. I am unable to assess the pulmonary vasculature due to the degree of inspiration. Tomas Randall Jr., MD Abdomen/Pelvis CT 06/12/17 0000 Signed Impressions: Service Date/Time: May 16:53 - CONCLUSION: 1. Apple core type lesion worrisome for colon cancer involving the sigmoid colon causing obstruction and worsening bowel gas pattern with multiple loops of borderline dilated air-containing small bowel now noted with multiple air-fluid levels. The degree of colonic distention is not significantly changed. Findings there are concerning for partial bowel obstruction. 2. Inflammatory change remains greatest in right side of the abdomen and pelvis. 3. New small pleural effusions with consolidation in both posterior lung bases. 4. A small amount of ascitic fluid is present which is increased from the prior study as well. Dr. Sanchez was notified of these findings. Daryl Rene MD Objective Remarks GENERAL: This is a well-nourished, well-developed patient, in no apparent distress. CARDIOVASCULAR: Regular rate and regular rhythm without murmurs, gallops, or rubs. RESPIRATORY: Clear to auscultation. Breath sounds equal bilaterally. No wheezes , rales, or rhonchi. GASTROINTESTINAL: Abdomen soft, non-tender, nondistended. Normal, active bowel sounds MUSCULOSKELETAL: Extremities without clubbing, cyanosis, or edema. NEURO: Alert & Oriented x4 to person, place, time, situation. Moves all ext x4 Procedures EGD colonoscopy Low anterior resection with primary anastomosis and takedown of the splenic flexure. Medications and IVs Current Medications Sodium Chloride (NS Flush) 2 ml UNSCH PRN IV FLUSH FLUSH AFTER USING IV ACCESS ; Start 06/09/17 at 00:30 Sodium Chloride (NS Flush) 2 ml BID IV FLUSH Last administered on 06/17/17t 09: 00; Start 06/09/17 at 09:00 Ondansetron HCl (Zofran Inj) 4 mg Q6H PRN IVP NAUSEA OR VOMITING Last administered on 06/11/17 08:12; Start 06/09/17 at 00:30 Naloxone HCl (Narcan Inj) 0.4 mg UNSCH PRN IV SEE LABEL COMMENTS; Start at 00:30 Flumazenil (Romazicon Inj) 0.2 mg Q1M PRN IV PUSH SEE LABEL COMMENTS; Start at 00:30 Lorazepam (Ativan) 1 mg Q4H PRN PO CIWA 8 - 10 Last administered on 06/09/17 17:52; Start 06/09/17 at 00:30 Lorazepam (Ativan Inj) 1 mg Q4H PRN IV PUSH CIWA 8 - 10; Start 06/09/17 at 00: 30 Lorazepam (Ativan) 2 mg Q2H PRN PO CIWA 11-14; Start 06/09/17 at 00:30 Lorazepam (Ativan Inj) 2 mg Q2H PRN IV PUSH CIWA 11-14; Start 06/09/17 at 00:30 Lorazepam (Ativan Inj) 2 mg Q1H PRN IV PUSH CIWA 15-20; Start 06/09/17 at 00:30 Lorazepam (Ativan Inj) 2 mg Q15M PRN IV PUSH CIWA > 20; Start 06/09/17 at 00:30 Piperacillin Sod/ Tazobactam Sod 50 ml @ 100 mls/hr Q6HR IV Last administered on 06/17/17 06:03; Start 06/09/17 at 06:00 Potassium Chloride/Sodium Chloride 1,000 ml @ 100 mls/hr Q10H IV Last administered on 06/12/17 08:45; Start 06/09/17 at 00:45; Stop 06/12/17 at 11:09 ; Status DC Morphine Sulfate (Morphine Inj) 2 mg Q3H PRN IV PUSH PAIN SCALE 5 TO 10 Last administered on 06/09/17 09:39; Start 06/09/17 at 00:45; Stop 06/09/17 at 12:25 ; Status DC Pneumococcal Polyvalent Vaccine (Pneumovax-23 Inj) 25 mcg ONCE ONCE IM ; Start 06/10/17 at 09:00; Stop 06/10/17 at 09:01; Status DC Influenza Virus Vaccine (Flu (Quadrivalent) Vaccine Inj) 0.5 ml ONCE ONCE IM ; Start 06/10/17 at 09:00; Stop 06/10/17 at 09:01; Status Cancel Pantoprazole Sodium (Protonix Inj) 40 mg Q24H IV PUSH Last administered on 06/11 08:09; Start 06/09/17 at 11:00; Stop 06/12/17 at 11:10; Status DC Morphine Sulfate (Morphine Inj) 4 mg ONCE ONCE IV PUSH Last administered on 13:49; Start 06/09/17 at 12:30; Stop 06/09/17 at 12:31; Status DC Morphine Sulfate (Morphine Inj) 4 mg Q3H PRN IV PUSH PAIN SCALE 5 TO 10 Last administered on 06/11/17 17:55; Start 06/09/17 at 16:00; Stop 06/11/17 at 18:42 ; Status DC Pantoprazole Sodium (Protonix Inj) 40 mg Q24H IV PUSH ; Start 06/09/17 at 13:45 ; Status UNV Multivitamins 10 ml/Folic Acid 1 mg/Sodium Chloride 510.2 ml @ 125 mls/hr Q24H IV Last administered on 06/13/17 17:00; Start 06/09/17 at 17:00; Stop at 16:59; Status DC Thiamine HCl 100 mg/Sodium Chloride 101 ml @ 100 mls/hr Q24H IV Last administered on 06/11/17 20:31; Start 06/09/17 at 17:00; Stop 06/12/17 at 09:59 ; Status DC Thiamine HCl (Vitamin B1) 100 mg DAILY PO Last administered on 06/12/17 10:17 ; Start 06/10/17 at 09:00; Status Future Hold Enalaprilat (Vasotec Inj) 1.25 mg Q6H PRN IV PUSH SBP> OR = 180, DBP> OR = 100 Last administered on 06/13/17 11:55; Start 06/09/17 at 16:00; Stop at 18:24; Status DC Potassium Chloride (KCl) 20 meq ONCE ONCE PO Last administered on 06/10/17 11 :33; Start 06/10/17 at 11:00; Stop 06/10/17 at 11:01; Status DC Lisinopril (Prinivil) 10 mg DAILY PO Last administered on 06/13/17 09:15; Start 06/10/17 at 11:00; Status Future Hold Al Hydrox/Mg Hydrox/Simethicone (Mag-Al Plus Susp Liq) 30 ml ONCE ONCE PO Last administered on 06/10/17 11:56; Start 06/10/17 at 12:15; Stop 06/10/17 at 12:16; Status DC Al Hydrox/Mg Hydrox/Simethicone (Mag-Al Plus Susp Liq) 30 ml Q6H PRN PO DYSPEPSIA OR HEARTBURN; Start 06/10/17 at 17:00 Propofol (Diprivan 200 Mg/20 ml Inj) 140 mg STK-MED ONCE IV PUSH ; Start at 11:09; Stop 06/11/17 at 11:10; Status DC Morphine Sulfate (Morphine Inj) 2 mg Q4H PRN IV BREAKTHROUGH PAIN Last administered on 06/13/17 09:16; Start 06/11/17 at 19:00; Stop 06/13/17 at 12:05 ; Status DC Acetaminophen/ Hydrocodone Bitart (Slaughters 5-325 Mg) 1 tab Q4H PRN PO PAIN SCALE 1-5; Start 06/11/17 at 19:00; Stop 06/13/17 at 12:04; Status DC Acetaminophen/ Hydrocodone Bitart (Slaughters 10-325 Mg) 1 tab Q4H PRN PO PAIN SCALE 6-10 Last administered on 06/13/17 07:10; Start 06/11/17 at 19:00; Stop 06/13/17 at 12:04; Status DC Clonidine (Catapres) 0.1 mg Q6H PRN PO SBP> OR = 180, DBP> OR = 100 Last administered on 06/13/17 00:34; Start 06/12/17 at 08:00; Stop 06/13/17 at 12:06 ; Status DC Pantoprazole Sodium (Protonix) 40 mg DAILY PO Last administered on 06/12/17 12 :27; Start 06/12/17 at 11:15; Stop 06/13/17 at 12:05; Status DC Polyethylene Glycol (Miralax) 17 gm DAILY PO Last administered on 06/12/17 12: 27; Start 06/12/17 at 11:30; Stop 06/13/17 at 12:05; Status DC Senna/Docusate Sodium (Flor-Colace) 1 tab BID PO Last administered on 20:46; Start 06/12/17 at 21:00; Stop 06/13/17 at 12:04; Status DC Magnesium Hydroxide (Milk Of Magnesia Liq) 30 ml Q12H PRN PO MILD - MODERATE CONSTIPATION; Start 06/12/17 at 15:00; Stop 06/13/17 at 12:05; Status DC Sennosides (Senokot) 17.2 mg Q12H PRN PO MODERATE - SEVERE CONSTIPATION; Start 06/12/17 at 15:00; Stop 06/13/17 at 12:05; Status DC Bisacodyl (Dulcolax Supp) 10 mg DAILY PRN RECTAL SEVERE CONSITIPATION; Start at 15:00; Stop 06/13/17 at 12:04; Status DC Lactulose (Lactulose Liq) 30 ml DAILY PRN PO SEVERE CONSITIPATION Last administered on 06/12/17 15:19; Start 06/12/17 at 15:00; Stop 06/13/17 at 12:05 ; Status DC Atenolol (Tenormin) 25 mg DAILY PO Last administered on 06/13/17 09:15; Start 06/12/17 at 15:00; Status Future Hold Hydromorphone HCl (Dilaudid Pf Inj) 0.5 mg ONCE ONCE IV PUSH Last administered on 06/12/17 16:28; Start 06/12/17 at 16:15; Stop 06/12/17 at 16:16 ; Status DC Iohexol (Omnipaque 350 Inj) 69 ml STK-MED ONCE IV Last administered on 17:08; Start 06/12/17 at 17:08; Stop 06/12/17 at 17:09; Status DC Diatrizoate Meglum/ Diatrizoate Sod (Md Gastroview Liq) 18 ml ONCE ONCE PO Last administered on 06/12/17 20:48; Start 06/12/17 at 16:22; Stop 06/12/17 at 18:57; Status DC Sodium Chloride 1,000 ml @ 100 mls/hr Q10H IV Last administered on 06/14/17 06:10; Start 06/13/17 at 01:45; Stop 06/14/17 at 07:01; Status DC Morphine Sulfate (Morphine Inj) 4 mg Q4H PRN IV PAIN SCALE 5 TO 10 Last administered on 06/15/17 13:31; Start 06/13/17 at 15:00; Stop 06/15/17 at 14:55 ; Status DC Pantoprazole Sodium (Protonix Inj) 40 mg Q24H IV PUSH Last administered on 06/16 12:32; Start 06/13/17 at 13:00 Clonidine (Catapres-Tts 0.1mg Patch.7d) 1 patch Q7D T-DERMAL Last administered on 06/13/17 16:14; Start 06/13/17 at 14:00 Acetaminophen (Ofirmev Inj) 1,000 mg STK-MED ONCE IV Last administered on 13:07; Start 06/13/17 at 13:02; Stop 06/13/17 at 13:03; Status DC Midazolam HCl (Versed Inj) 2 mg STK-MED ONCE .ROUTE Last administered on 13:04; Start 06/13/17 at 13:02; Stop 06/13/17 at 13:03; Status DC Dexamethasone Sodium Phosphate (Decadron Inj) 4 mg STK-MED ONCE .ROUTE Last administered on 06/13/17 13:05; Start 06/13/17 at 13:02; Stop 06/13/17 at 13:03 ; Status DC Famotidine (Pepcid Inj) 20 mg STK-MED ONCE .ROUTE Last administered on 13:03; Start 06/13/17 at 13:02; Stop 06/13/17 at 13:03; Status DC Labetalol HCl (*TRANDATE INJ PERIprocedural Use ONLY) 100 mg STK-MED ONCE .ROUTE Last administered on 06/13/17 14:38; Start 06/13/17 at 14:38; Stop at 14:39; Status DC Fentanyl Citrate (fentaNYL INJ) 250 mcg STK-MED ONCE .ROUTE ; Start 06/13/17 at 14:40; Stop 06/13/17 at 14:41; Status DC Iohexol (Omnipaque 350 Inj) 200 ml STK-MED ONCE OTHER Last administered on 06/13 13:20; Start 06/13/17 at 13:20; Stop 06/13/17 at 14:42; Status DC Albuterol Sulfate (*ALBUTEROL NEB PERIprocedure ONLY) 2.5 mg STK-MED ONCE NEB Last administered on 06/13/17 14:53; Start 06/13/17 at 14:53; Stop 06/13/17 at 14:54; Status DC Propofol (Diprivan 200 Mg/20 ml Inj) 200 mg STK-MED ONCE IV ; Start 06/13/17 at 15:16; Stop 06/13/17 at 15:17; Status DC Lactated Ringer's (Lr 1000 ml Inj) 1,000 ml STK-MED ONCE IV ; Start 06/13/17 at 14:40; Stop 06/13/17 at 15:18; Status DC Succinylcholine Chloride (Quelicin Inj) 200 mg STK-MED ONCE IV ; Start 06/13/17 at 14:40; Stop 06/13/17 at 15:19; Status DC Phenylephrine HCl (Neosynephrine/ NS 1000 Mcg/10ml Syr) 1,000 mcg STK-MED ONCE IV ; Start 06/13/17 at 14:40; Stop 06/13/17 at 15:19; Status DC Ondansetron HCl (Zofran Inj) 4 mg STK-MED ONCE IV PUSH ; Start 06/13/17 at 14:40 ; Stop 06/13/17 at 15:19; Status DC Miscellaneous Information ALL NURSING DEPARTME... UNSCH PRN .XX SEE LABEL COMMENTS; Start 06/13/17 at 16:45; Stop 06/14/17 at 16:44; Status DC Labetalol HCl (Trandate Inj) 20 mg Q3H PRN IV PUSH SBP > 160 Last administered on 06/14/17 02:49; Start 06/13/17 at 18:30; Stop 06/14/17 at 06:58; Status DC Enalaprilat (Vasotec Inj) 2.5 mg Q6H PRN IV PUSH SBP > 170 Last administered on 06/14/17 04:18; Start 06/13/17 at 18:30; Stop 06/14/17 at 06:58; Status DC Metoprolol Tartrate (Lopressor Inj) 5 mg Q6HR IV PUSH Last administered on 06/16 12:32; Start 06/13/17 at 18:30; Stop 06/16/17 at 17:10; Status DC Heparin Sodium (Porcine) (Heparin Inj) 5,000 units Q8H SQ Last administered on 06/14/17 08:27; Start 06/14/17 at 09:00; Stop 06/14/17 at 17:57; Status DC Enalaprilat (Vasotec Inj) 1.25 mg Q6H PRN IV PUSH SBP > 170; Start 06/14/17 at 12:30 Labetalol HCl (Trandate Inj) 10 mg Q1HR PRN IV PUSH SBP>160, DBP>90, HR>65 Last administered on 06/14/17 19:58; Start 06/14/17 at 07:00 Hydralazine HCl (Apresoline Inj) 10 mg Q1HR PRN IV PUSH SBP>160, DBP>90 Last administered on 06/16/17 14:12; Start 06/14/17 at 07:00 Nitroglycerin (Nitroglycerin 2% Oint) 2 inch Q6HR PRN TOPICAL SBP>160, DBP>90; Start 06/14/17 at 07:00 Enalaprilat (Vasotec Inj) 1.25 mg Q8H IV PUSH Last administered on 06/17/17 06:03; Start 06/14/17 at 07:00 Thiamine HCl 100 mg/Sodium Chloride 101 ml @ 101 mls/hr DAILY IV Last administered on 06/17/17 10:28; Start 06/14/17 at 09:00 Potassium Chloride/Sodium Chloride 1,000 ml @ 100 mls/hr Q10H IV Last administered on 06/15/17 02:28; Start 06/14/17 at 07:00; Stop 06/15/17 at 20:13 ; Status DC Potassium Chloride 100 ml @ 100 mls/hr Q1H IV Last administered on 06/14/17 08:26; Start 06/14/17 at 07:00; Stop 06/14/17 at 10:01; Status DC Albuterol/ Ipratropium (Duoneb Neb) 1 ampule Q6HR NEB NEB Last administered on 06/14/17 09:47; Start 06/14/17 at 10:00 Albuterol Sulfate (Albuterol Neb) 2.5 mg Q2HR NEB PRN NEB DYSPNEA; Start at 07:00 Polyethylene Glycol/ Electrolytes (Colyte Liq) 4,000 ml ONCE ONCE NG Last administered on 06/14/17 10:40; Start 06/14/17 at 10:15; Stop 06/14/17 at 10:31 ; Status DC Piperacillin Sod/ Tazobactam Sod 100 ml @ 200 mls/hr ONCE ONCE IV ; Start at 09:00; Stop 06/15/17 at 09:29; Status UNV Potassium Chloride (KCl) 40 meq ONCE ONCE PO Last administered on 06/15/17 05 :46; Start 06/15/17 at 05:45; Stop 06/15/17 at 05:46; Status DC Potassium Chloride 100 ml @ 100 mls/hr Q1H IV Last administered on 06/15/17 10:45; Start 06/15/17 at 05:45; Stop 06/15/17 at 11:44; Status DC Potassium Chloride (KCl Powder) 80 meq NOW NG Last administered on 06/15/17 06 :56; Start 06/15/17 at 07:00; Stop 06/15/17 at 09:00; Status DC Bupivacaine HCl/ Epinephrine Bitart (Sensorcaine-Epinephrine 0.25% Inj) 50 ml STK-MED ONCE .ROUTE ; Start 06/15/17 at 07:04; Stop 06/15/17 at 07:05; Status DC Dextrose (D50w (Vial) Inj) 50 ml UNSCH PRN IV HYPOGLYCEMIA-SEE COMMENTS; Start 06/15/17 at 07:30 Glucagon (Glucagon Inj) 1 mg STAT PRN IM HYPOGLYCEMIA-SEE COMMENTS; Start 06/15 at 07:30 Fentanyl Citrate (fentaNYL INJ) 500 mcg STK-MED ONCE .ROUTE ; Start 06/15/17 at 09:21; Stop 06/15/17 at 12:08; Status DC Enalaprilat (*VASOTEC INJ PERIprocedural Use ONLY) 1.25 mg STK-MED ONCE .ROUTE ; Start 06/15/17 at 11:58; Stop 06/15/17 at 12:19; Status DC Labetalol HCl (*TRANDATE INJ PERIprocedural Use ONLY) 100 mg STK-MED ONCE .ROUTE ; Start 06/15/17 at 11:58; Stop 06/15/17 at 12:19; Status DC Morphine Sulfate (*morphine INJ PERIprocedure ONLY) 8 mg STK-MED ONCE .ROUTE ; Start 06/15/17 at 12:12; Stop 06/15/17 at 12:20; Status DC Morphine Sulfate (*morphine INJ PERIprocedure ONLY) 8 mg STK-MED ONCE .ROUTE ; Start 06/15/17 at 12:45; Stop 06/15/17 at 12:46; Status DC Lactated Ringer's 1,000 ml @ 150 mls/hr Q6H IV Last administered on 06/16/17 08:00; Start 06/15/17 at 14:00; Stop 06/16/17 at 09:59; Status DC Miscellaneous Information ALL NURSING DEPARTME... UNSCH PRN .XX SEE LABEL COMMENTS; Start 06/15/17 at 14:15; Stop 06/16/17 at 14:14; Status DC Enoxaparin Sodium (Lovenox Inj) 40 mg Q24H SQ Last administered on 06/16/17 13 :50; Start 06/16/17 at 14:00 Morphine Sulfate (Morphine Inj) 4 mg Q2H PRN IV PAIN SCALE 5 TO 10 Last administered on 06/16/17 17:57; Start 06/15/17 at 15:00 Sodium Chloride 1,000 ml @ 100 mls/hr Q10H IV Last administered on 06/17/17 06:03; Start 06/16/17 at 10:00 Diatrizoate Meglum/ Diatrizoate Sod ( Gastroview Liq) 720 ml STK-MED ONCE RECTAL Last administered on 06/13/17 10:11; Start 06/13/17 at 10:11; Stop at 10:15; Status DC Metoprolol Tartrate (Lopressor) 50 mg Q8HR PO Last administered on 06/17/17 06 :04; Start 06/16/17 at 17:15 A/P Assessment and Plan A/P History of EtOH use History of THC use History of cataracts Patient's been treated with thiamine, folic acid and multivitamin. Morphine for pain management Monitor for DTs. Currently on a clonidine patch/CIWA protocol Hypertension continue metoprolol will monitor and adjust the regimen as needed. Postprocedure respiratory failure resolved COPD Titrate oxygen to maintain saturations greater than equal to 90% Incentive spirometry while awake. Status post sigmoid stents secondary to obstructing mass Sigmoid diverticulosis Status post IR placement of sigmoid stent 06/13. s/p Low anterior resection with primary anastomosis and takedown of the splenic flexure. management per surgery. Monitor urine output Accurate I's and O's will dc perez cath soon. Normocytic anemia Monitor CBCs daily. Follow trends. No indication for transfusion of blood product at this time. Hypokalemia Replaced. Prophylaxis - DVT subq Eda Saenz MD Jun 17, 2017 10:45
[2017-06-17] MEDS: PANTOPRAZOLE SODIUM 40 MG VIAL IV PUSH SCH (14:50)
[2017-06-17] MEDS: ENOXAPARIN SODIUM 40 MG/0.4 ML SYRINGE SQ SCH (14:51)
--- NOTE | 2017-06-17 16:51 | PD.CAR.PN ---
CVT Progress Note Subjective/Hospital Course: Referral received Full consult LOUISE J 06/10/17 Abdomen is soft patient states more tender in the right lower quadrant. No guarding however patient does have rebound tenderness Leukocytosis resolved The primary diagnosis seems to be somewhat unclear. We'll patient may have left sided diverticulitis this pattern of presentation is usually associated with pancolitis either infectious or related to later presentation of some sort of granulomatous disease like ulcerative colitis. All in all when everything calms down the patient will need colonoscopy with biopsies to establish the actual nature of this problem Based on the final diagnosis will best be able to decide when and in what fashion to proceed with surgery. Would continue IV antibiotics 06/11/17 Patient is improved subjectively. Remains afebrile and leukocytosis is resolved Abdomen is soft with active bowel sounds centrifugal screen tender in the right lower quadrant but no rebound or guarding is noted EGD consistent with esophagitis Would continue current care and after colonoscopy we will decide how to proceed depending on the biopsies 06/12/17 Patient more tender diffusely No rebound or guarding Distended.Patient definitely has an ileus,b ut he may have a developing distal large bowel obstruction, considering that he remains distended 4 days into the therapy. CT scan may be revealing possible distal sigmoid mass. Discussed with Dr Curry. Suggest decrease narcotics, gastrografin enema tomorrow am, for patient will eventually develop ischemia and perforation if obstruction and dilatation persists. No acute abdomen requiring surgery at this time. If positive for a mass, patient will need decompressive colonoscopy, vs colon resection/decompression 06/13/17 Gastrografin enema confirms partial obstruction with a distal sigmoid mass. Discussed with gastroenterology Dr. James and the best way out of this would be sigmoidoscopy with a stent placement followed by washout and then definitive surgery next 48 hours. If this is not successful and we cannot decompress the patient then I will go ahead with surgery today. Have explained to the patient that he may and up with a temporary colostomy if were unable to wash the patient out and decompress 06/14/17 Patient underwent sigmoidoscopy with successful deployment off a stent. Sigmoidoscopy reveals friable low sigmoid/high rectal mass at the level of peritoneal reflection, consistent with carcinoma of the colon Mass was nearly completely obstructing the distal sigmoid and with placement of a stent patient passed a large amount of gas and liquid stool Post colonoscopy patient was transferred to ICU because of respiratory insufficiency, yet this has improved since. After the surgery patient will return to the same ICU sodium as well stay here overnight. Will give GoLYTELY through NG tube today and take patient to the operating room tomorrow for low anterior resection I've discussed risks and benefits with the patient 06/16/17 Patient status post low anterior resection with primary anastomosis Incisions clean and dry Abdomen is soft with few bowel sounds Plan Transferred to floor Out of bed with binder Keep Castelan and NG tube in place Keep David-Peace in place Decrease IV fluid rate In face off previous symptoms would continue Zosyn for another 48 hours 06/17/17 Abdomen soft Incision clean and dry DC JUAN A DC NG tube Clear liquid diet Continue current care we'll keep JUAN A in for another day or 2 Patient is somewhat hypervolemic and fluid overloaded so we'll decrease IV rate and diurese the patient gently Objective: Vital Signs Date Time Temp Pulse Resp B/P (MAP) Pulse Ox O2 Delivery O2 Flow Rate FiO2 06/17/17 16:00 99.4 90 19 153/87 (109) 92 06/17/17 12:00 99.2 84 18 167/79 (108) 94 06/17/17 08:00 98.6 78 18 164/92 (116) 96 06/17/17 07:37 93 Nasal Cannula 3.00 06/17/17 04:00 96.8 83 19 162/85 (110) 92 06/17/17 01:00 Nasal Cannula 3.00 06/17/17 00:00 () 06/17/17 00:00 99.3 73 19 163/83 (109) 98 06/16/17 20:36 Nasal Cannula 3.00 06/16/17 20:21 96 Nasal Cannula 4.00 06/16/17 20:00 99.0 79 19 165/84 (111) 96 06/16/17 18:00 84 Result Diagram: 06/16/17 0507 06/16/17 0507 Trinh Enrique MD Jun 17, 2017 16:51
[2017-06-17] MEDS ORDERED: FUROSEMIDE 40 MG/4 ML VIAL IV PUSH ONE (17:00)
[2017-06-18] VITALS: BP 159/88; PULSE 74; RESP 18; TEMP 99.2; O2SAT 92
[2017-06-18] MEDS: RESP: ALBUTEROL 2.5 MG/IPRATROPIUM 0.5 MG NEB (SCH) NEB ×2 (03:49→08:39)
[2017-06-18 04:00] VITALS: BP 164/89; PULSE 80; RESP 20; TEMP 99; O2SAT 93
[2017-06-18] MEDS: PIPERACIL-TAZO 3.375 GM PREMIX 50 ML IV SCH (05:02)
[2017-06-18] MEDS: METOPROLOL TARTRATE 50 MG TAB PO SCH (05:02)
[2017-06-18] MEDS: ENALAPRILAT 1.25 MG/ML VIAL IV PUSH SCH ×3 (05:05→21:57)
[2017-06-18 08:00] VITALS: BP 152/83; PULSE 67; RESP 17; TEMP 98; O2SAT 96
[2017-06-18] MEDS: THIAMINE INJ 100 MG in SODIUM CHLORIDE 0.9% INJ 100 ML IV SCH (08:33)
[2017-06-18] MEDS: SODIUM CHLORIDE 0.9% FLUSH 10 ML FLUSH IV FLUSH SCH ×2 (08:33→21:00)
--- NOTE | 2017-06-18 09:10 | HHI.PR ---
Subjective Remarks resting comfortably with no distress. had BM. pain is controlled. no nausea or vomiting. afebrile. Objective Vitals Vital Signs Date Time Temp Pulse Resp B/P (MAP) Pulse Ox O2 Delivery O2 Flow Rate FiO2 06/18/17 08:00 98.0 67 17 152/83 (106) 96 06/18/17 04:00 99.0 80 20 164/89 (114) 93 06/18/17 00:00 99.2 74 18 159/88 (111) 92 06/17/17 23:00 84 162/79 (106) 06/17/17 21:00 92 Nasal Cannula 3.00 06/17/17 16:00 99.4 90 19 153/87 (109) 92 06/17/17 12:00 99.2 84 18 167/79 (108) 94 I/O 06/17/17 06/17/17 06/17/17 06/18/17 06/18/17 06/18/17 06:59 14:59 22:59 06:59 14:59 22:59 Intake Total 1030 ml 100 ml 1945 ml 2283 ml Output Total 710 ml 1160 ml 5 ml Balance 320 ml 100 ml 785 ml 2278 ml Intake Oral 0 ml 600 ml IV Total 1030 ml 100 ml 1345 ml 2283 ml Output Urine Total 700 ml 1150 ml Drainage Total 10 ml 10 ml 5 ml # Bowel Movements 0 1 Result Diagram: 06/16/17 0507 06/16/17 0507 Imaging Last Impressions GI Procedure 06/13/17 0000 Signed Impressions: Service Date/Time: Tuesday, June 13, 2017 13:43 - CONCLUSION: 1. Uncomplicated stenting of an obstructing mass in the distal sigmoid colon. Mika Curry MD Enema w/Water Soluble 06/13/17 0000 Signed Impressions: Service Date/Time: Tuesday, June 13, 2017 09:41 - CONCLUSION: Apple core type lesion involving the sigmoid colon is characteristic of colon cancer. Daryl Rene MD Chest X-Ray 06/13/17 0000 Signed Impressions: Service Date/Time: Tuesday, June 13, 2017 15:53 - CONCLUSION: Bibasilar infiltrates with small left effusion. I am unable to assess the pulmonary vasculature due to the degree of inspiration. Tomas Randall Jr., MD Abdomen/Pelvis CT 06/12/17 0000 Signed Impressions: Service Date/Time: May 16:53 - CONCLUSION: 1. Apple core type lesion worrisome for colon cancer involving the sigmoid colon causing obstruction and worsening bowel gas pattern with multiple loops of borderline dilated air-containing small bowel now noted with multiple air-fluid levels. The degree of colonic distention is not significantly changed. Findings there are concerning for partial bowel obstruction. 2. Inflammatory change remains greatest in right side of the abdomen and pelvis. 3. New small pleural effusions with consolidation in both posterior lung bases. 4. A small amount of ascitic fluid is present which is increased from the prior study as well. Dr. Sanchez was notified of these findings. Daryl Rene MD Abdomen X-Ray 06/12/17 0000 Signed Impressions: Service Date/Time: , June 12, 2017 17:10 - CONCLUSION: Gaseous distention of the colon as above. There is possible obstruction in the distal sigmoid. Mika Curry MD Objective Remarks GENERAL: This is a well-nourished, well-developed patient, in no apparent distress. CARDIOVASCULAR: Regular rate and regular rhythm without murmurs, gallops, or rubs. RESPIRATORY: Clear to auscultation. Breath sounds equal bilaterally. No wheezes , rales, or rhonchi. GASTROINTESTINAL: Abdomen soft, covered with clean dressing. MUSCULOSKELETAL: Extremities without clubbing, cyanosis, or edema. NEURO: Alert & Oriented x4 to person, place, time, situation. Moves all ext x4 Procedures EGD colonoscopy Low anterior resection with primary anastomosis and takedown of the splenic flexure. Medications and IVs Current Medications Sodium Chloride (NS Flush) 2 ml UNSCH PRN IV FLUSH FLUSH AFTER USING IV ACCESS ; Start 06/09/17 at 00:30 Sodium Chloride (NS Flush) 2 ml BID IV FLUSH Last administered on 06/18/17 08: 33; Start 06/09/17 at 09:00 Ondansetron HCl (Zofran Inj) 4 mg Q6H PRN IVP NAUSEA OR VOMITING Last administered on 06/11/17 08:12; Start 06/09/17 at 00:30 Naloxone HCl (Narcan Inj) 0.4 mg UNSCH PRN IV SEE LABEL COMMENTS; Start at 00:30 Flumazenil (Romazicon Inj) 0.2 mg Q1M PRN IV PUSH SEE LABEL COMMENTS; Start at 00:30 Lorazepam (Ativan) 1 mg Q4H PRN PO CIWA 8 - 10 Last administered on 06/09/17 17:52; Start 06/09/17 at 00:30 Lorazepam (Ativan Inj) 1 mg Q4H PRN IV PUSH CIWA 8 - 10; Start 06/09/17 at 00: 30 Lorazepam (Ativan) 2 mg Q2H PRN PO CIWA 11-14; Start 06/09/17 at 00:30 Lorazepam (Ativan Inj) 2 mg Q2H PRN IV PUSH CIWA 11-14; Start 06/09/17 at 00:30 Lorazepam (Ativan Inj) 2 mg Q1H PRN IV PUSH CIWA 15-20; Start 06/09/17 at 00:30 Lorazepam (Ativan Inj) 2 mg Q15M PRN IV PUSH CIWA > 20; Start 06/09/17 at 00:30 Piperacillin Sod/ Tazobactam Sod 50 ml @ 100 mls/hr Q6HR IV Last administered on 06/18/17 05:02; Start 06/09/17 at 06:00 Potassium Chloride/Sodium Chloride 1,000 ml @ 100 mls/hr Q10H IV Last administered on 06/12/17 08:45; Start 06/09/17 at 00:45; Stop 06/12/17 at 11:09 ; Status DC Morphine Sulfate (Morphine Inj) 2 mg Q3H PRN IV PUSH PAIN SCALE 5 TO 10 Last administered on 06/09/17 09:39; Start 06/09/17 at 00:45; Stop 06/09/17 at 12:25 ; Status DC Pneumococcal Polyvalent Vaccine (Pneumovax-23 Inj) 25 mcg ONCE ONCE IM ; Start 06/10/17 at 09:00; Stop 06/10/17 at 09:01; Status DC Influenza Virus Vaccine (Flu (Quadrivalent) Vaccine Inj) 0.5 ml ONCE ONCE IM ; Start 06/10/17 at 09:00; Stop 06/10/17 at 09:01; Status Cancel Pantoprazole Sodium (Protonix Inj) 40 mg Q24H IV PUSH Last administered on 06/11 08:09; Start 06/09/17 at 11:00; Stop 06/12/17 at 11:10; Status DC Morphine Sulfate (Morphine Inj) 4 mg ONCE ONCE IV PUSH Last administered on 13:49; Start 06/09/17 at 12:30; Stop 06/09/17 at 12:31; Status DC Morphine Sulfate (Morphine Inj) 4 mg Q3H PRN IV PUSH PAIN SCALE 5 TO 10 Last administered on 06/11/17 17:55; Start 06/09/17 at 16:00; Stop 06/11/17 at 18:42 ; Status DC Pantoprazole Sodium (Protonix Inj) 40 mg Q24H IV PUSH ; Start 06/09/17 at 13:45 ; Status UNV Multivitamins 10 ml/Folic Acid 1 mg/Sodium Chloride 510.2 ml @ 125 mls/hr Q24H IV Last administered on 06/13/17 17:00; Start 06/09/17 at 17:00; Stop at 16:59; Status DC Thiamine HCl 100 mg/Sodium Chloride 101 ml @ 100 mls/hr Q24H IV Last administered on 06/11/17 20:31; Start 06/09/17 at 17:00; Stop 06/12/17 at 09:59 ; Status DC Thiamine HCl (Vitamin B1) 100 mg DAILY PO Last administered on 06/12/17 10:17 ; Start 06/10/17 at 09:00; Status Future Hold Enalaprilat (Vasotec Inj) 1.25 mg Q6H PRN IV PUSH SBP> OR = 180, DBP> OR = 100 Last administered on 06/13/17 11:55; Start 06/09/17 at 16:00; Stop at 18:24; Status DC Potassium Chloride (KCl) 20 meq ONCE ONCE PO Last administered on 06/10/17 11 :33; Start 06/10/17 at 11:00; Stop 06/10/17 at 11:01; Status DC Lisinopril (Prinivil) 10 mg DAILY PO Last administered on 06/13/17 09:15; Start 06/10/17 at 11:00; Status Future Hold Al Hydrox/Mg Hydrox/Simethicone (Mag-Al Plus Susp Liq) 30 ml ONCE ONCE PO Last administered on 06/10/17 11:56; Start 06/10/17 at 12:15; Stop 06/10/17 at 12:16; Status DC Al Hydrox/Mg Hydrox/Simethicone (Mag-Al Plus Susp Liq) 30 ml Q6H PRN PO DYSPEPSIA OR HEARTBURN; Start 06/10/17 at 17:00 Propofol (Diprivan 200 Mg/20 ml Inj) 140 mg STK-MED ONCE IV PUSH ; Start at 11:09; Stop 06/11/17 at 11:10; Status DC Morphine Sulfate (Morphine Inj) 2 mg Q4H PRN IV BREAKTHROUGH PAIN Last administered on 06/13/17 09:16; Start 06/11/17 at 19:00; Stop 06/13/17 at 12:05 ; Status DC Acetaminophen/ Hydrocodone Bitart ([place] 5-325 Mg) 1 tab Q4H PRN PO PAIN SCALE 1-5; Start 06/11/17 at 19:00; Stop 06/13/17 at 12:04; Status DC Acetaminophen/ Hydrocodone Bitart ([place] 10-325 Mg) 1 tab Q4H PRN PO PAIN SCALE 6-10 Last administered on 06/13/17 07:10; Start 06/11/17 at 19:00; Stop 06/13/17 at 12:04; Status DC Clonidine (Catapres) 0.1 mg Q6H PRN PO SBP> OR = 180, DBP> OR = 100 Last administered on 06/13/17 00:34; Start 06/12/17 at 08:00; Stop 06/13/17 at 12:06 ; Status DC Pantoprazole Sodium (Protonix) 40 mg DAILY PO Last administered on 06/12/17 12 :27; Start 06/12/17 at 11:15; Stop 06/13/17 at 12:05; Status DC Polyethylene Glycol (Miralax) 17 gm DAILY PO Last administered on 06/12/17 12: 27; Start 06/12/17 at 11:30; Stop 06/13/17 at 12:05; Status DC Senna/Docusate Sodium (Flor-Colace) 1 tab BID PO Last administered on 20:46; Start 06/12/17 at 21:00; Stop 06/13/17 at 12:04; Status DC Magnesium Hydroxide (Milk Of Magnesia Liq) 30 ml Q12H PRN PO MILD - MODERATE CONSTIPATION; Start 06/12/17 at 15:00; Stop 06/13/17 at 12:05; Status DC Sennosides (Senokot) 17.2 mg Q12H PRN PO MODERATE - SEVERE CONSTIPATION; Start 06/12/17 at 15:00; Stop 06/13/17 at 12:05; Status DC Bisacodyl (Dulcolax Supp) 10 mg DAILY PRN RECTAL SEVERE CONSITIPATION; Start at 15:00; Stop 06/13/17 at 12:04; Status DC Lactulose (Lactulose Liq) 30 ml DAILY PRN PO SEVERE CONSITIPATION Last administered on 06/12/17 15:19; Start 06/12/17 at 15:00; Stop 06/13/17 at 12:05 ; Status DC Atenolol (Tenormin) 25 mg DAILY PO Last administered on 06/13/17 09:15; Start 06/12/17 at 15:00; Status Future Hold Hydromorphone HCl (Dilaudid Pf Inj) 0.5 mg ONCE ONCE IV PUSH Last administered on 06/12/17 16:28; Start 06/12/17 at 16:15; Stop 06/12/17 at 16:16 ; Status DC Iohexol (Omnipaque 350 Inj) 69 ml STK-MED ONCE IV Last administered on 17:08; Start 06/12/17 at 17:08; Stop 06/12/17 at 17:09; Status DC Diatrizoate Meglum/ Diatrizoate Sod ( Gastroview Liq) 18 ml ONCE ONCE PO Last administered on 06/12/17 20:48; Start 06/12/17 at 16:22; Stop 06/12/17 at 18:57; Status DC Sodium Chloride 1,000 ml @ 100 mls/hr Q10H IV Last administered on 06/14/17 06:10; Start 06/13/17 at 01:45; Stop 06/14/17 at 07:01; Status DC Morphine Sulfate (Morphine Inj) 4 mg Q4H PRN IV PAIN SCALE 5 TO 10 Last administered on 06/15/17 13:31; Start 06/13/17 at 15:00; Stop 06/15/17 at 14:55 ; Status DC Pantoprazole Sodium (Protonix Inj) 40 mg Q24H IV PUSH Last administered on 06/17 14:50; Start 06/13/17 at 13:00 Clonidine (Catapres-Tts 0.1mg Patch.7d) 1 patch Q7D T-DERMAL Last administered on 06/13/17 16:14; Start 06/13/17 at 14:00 Acetaminophen (Ofirmev Inj) 1,000 mg STK-MED ONCE IV Last administered on 13:07; Start 06/13/17 at 13:02; Stop 06/13/17 at 13:03; Status DC Midazolam HCl (Versed Inj) 2 mg STK-MED ONCE .ROUTE Last administered on 13:04; Start 06/13/17 at 13:02; Stop 06/13/17 at 13:03; Status DC Dexamethasone Sodium Phosphate (Decadron Inj) 4 mg STK-MED ONCE .ROUTE Last administered on 06/13/17 13:05; Start 06/13/17 at 13:02; Stop 06/13/17 at 13:03 ; Status DC Famotidine (Pepcid Inj) 20 mg STK-MED ONCE .ROUTE Last administered on 13:03; Start 06/13/17 at 13:02; Stop 06/13/17 at 13:03; Status DC Labetalol HCl (*TRANDATE INJ PERIprocedural Use ONLY) 100 mg STK-MED ONCE .ROUTE Last administered on 06/13/17 14:38; Start 06/13/17 at 14:38; Stop at 14:39; Status DC Fentanyl Citrate (fentaNYL INJ) 250 mcg STK-MED ONCE .ROUTE ; Start 06/13/17 at 14:40; Stop 06/13/17 at 14:41; Status DC Iohexol (Omnipaque 350 Inj) 200 ml STK-MED ONCE OTHER Last administered on 06/13 13:20; Start 06/13/17 at 13:20; Stop 06/13/17 at 14:42; Status DC Albuterol Sulfate (*ALBUTEROL NEB PERIprocedure ONLY) 2.5 mg STK-MED ONCE NEB Last administered on 06/13/17 14:53; Start 06/13/17 at 14:53; Stop 06/13/17 at 14:54; Status DC Propofol (Diprivan 200 Mg/20 ml Inj) 200 mg STK-MED ONCE IV ; Start 06/13/17 at 15:16; Stop 06/13/17 at 15:17; Status DC Lactated Ringer's (Lr 1000 ml Inj) 1,000 ml STK-MED ONCE IV ; Start 06/13/17 at 14:40; Stop 06/13/17 at 15:18; Status DC Succinylcholine Chloride (Quelicin Inj) 200 mg STK-MED ONCE IV ; Start 06/13/17 at 14:40; Stop 06/13/17 at 15:19; Status DC Phenylephrine HCl (Neosynephrine/ NS 1000 Mcg/10ml Syr) 1,000 mcg STK-MED ONCE IV ; Start 06/13/17 at 14:40; Stop 06/13/17 at 15:19; Status DC Ondansetron HCl (Zofran Inj) 4 mg STK-MED ONCE IV PUSH ; Start 06/13/17 at 14:40 ; Stop 06/13/17 at 15:19; Status DC Miscellaneous Information ALL NURSING DEPARTME... UNSCH PRN .XX SEE LABEL COMMENTS; Start 06/13/17 at 16:45; Stop 06/14/17 at 16:44; Status DC Labetalol HCl (Trandate Inj) 20 mg Q3H PRN IV PUSH SBP > 160 Last administered on 06/14/17 02:49; Start 06/13/17 at 18:30; Stop 06/14/17 at 06:58; Status DC Enalaprilat (Vasotec Inj) 2.5 mg Q6H PRN IV PUSH SBP > 170 Last administered on 06/14/17 04:18; Start 06/13/17 at 18:30; Stop 06/14/17 at 06:58; Status DC Metoprolol Tartrate (Lopressor Inj) 5 mg Q6HR IV PUSH Last administered on 06/16 12:32; Start 06/13/17 at 18:30; Stop 06/16/17 at 17:10; Status DC Heparin Sodium (Porcine) (Heparin Inj) 5,000 units Q8H SQ Last administered on 06/14/17 08:27; Start 06/14/17 at 09:00; Stop 06/14/17 at 17:57; Status DC Enalaprilat (Vasotec Inj) 1.25 mg Q6H PRN IV PUSH SBP > 170; Start 06/14/17 at 12:30 Labetalol HCl (Trandate Inj) 10 mg Q1HR PRN IV PUSH SBP>160, DBP>90, HR>65 Last administered on 06/14/17 19:58; Start 06/14/17 at 07:00 Hydralazine HCl (Apresoline Inj) 10 mg Q1HR PRN IV PUSH SBP>160, DBP>90 Last administered on 06/16/17 14:12; Start 06/14/17 at 07:00 Nitroglycerin (Nitroglycerin 2% Oint) 2 inch Q6HR PRN TOPICAL SBP>160, DBP>90; Start 06/14/17 at 07:00 Enalaprilat (Vasotec Inj) 1.25 mg Q8H IV PUSH Last administered on 06/18/17 05:05; Start 06/14/17 at 07:00 Thiamine HCl 100 mg/Sodium Chloride 101 ml @ 101 mls/hr DAILY IV Last administered on 06/18/17 08:33; Start 06/14/17 at 09:00 Potassium Chloride/Sodium Chloride 1,000 ml @ 100 mls/hr Q10H IV Last administered on 06/15/17 02:28; Start 06/14/17 at 07:00; Stop 06/15/17 at 20:13 ; Status DC Potassium Chloride 100 ml @ 100 mls/hr Q1H IV Last administered on 06/14/17 08:26; Start 06/14/17 at 07:00; Stop 06/14/17 at 10:01; Status DC Albuterol/ Ipratropium (Duoneb Neb) 1 ampule Q6HR NEB NEB Last administered on 06/14/17 09:47; Start 06/14/17 at 10:00 Albuterol Sulfate (Albuterol Neb) 2.5 mg Q2HR NEB PRN NEB DYSPNEA; Start at 07:00 Polyethylene Glycol/ Electrolytes (Colyte Liq) 4,000 ml ONCE ONCE NG Last administered on 06/14/17 10:40; Start 06/14/17 at 10:15; Stop 06/14/17 at 10:31 ; Status DC Piperacillin Sod/ Tazobactam Sod 100 ml @ 200 mls/hr ONCE ONCE IV ; Start at 09:00; Stop 06/15/17 at 09:29; Status UNV Potassium Chloride (KCl) 40 meq ONCE ONCE PO Last administered on 06/15/17 05 :46; Start 06/15/17 at 05:45; Stop 06/15/17 at 05:46; Status DC Potassium Chloride 100 ml @ 100 mls/hr Q1H IV Last administered on 06/15/17 10:45; Start 06/15/17 at 05:45; Stop 06/15/17 at 11:44; Status DC Potassium Chloride (KCl Powder) 80 meq NOW NG Last administered on 06/15/17 06 :56; Start 06/15/17 at 07:00; Stop 06/15/17 at 09:00; Status DC Bupivacaine HCl/ Epinephrine Bitart (Sensorcaine-Epinephrine 0.25% Inj) 50 ml STK-MED ONCE .ROUTE ; Start 06/15/17 at 07:04; Stop 06/15/17 at 07:05; Status DC Dextrose (D50w (Vial) Inj) 50 ml UNSCH PRN IV HYPOGLYCEMIA-SEE COMMENTS; Start 06/15/17 at 07:30 Glucagon (Glucagon Inj) 1 mg STAT PRN IM HYPOGLYCEMIA-SEE COMMENTS; Start 06/15 at 07:30 Fentanyl Citrate (fentaNYL INJ) 500 mcg STK-MED ONCE .ROUTE ; Start 06/15/17 at 09:21; Stop 06/15/17 at 12:08; Status DC Enalaprilat (*VASOTEC INJ PERIprocedural Use ONLY) 1.25 mg STK-MED ONCE .ROUTE ; Start 06/15/17 at 11:58; Stop 06/15/17 at 12:19; Status DC Labetalol HCl (*TRANDATE INJ PERIprocedural Use ONLY) 100 mg STK-MED ONCE .ROUTE ; Start 06/15/17 at 11:58; Stop 06/15/17 at 12:19; Status DC Morphine Sulfate (*morphine INJ PERIprocedure ONLY) 8 mg STK-MED ONCE .ROUTE ; Start 06/15/17 at 12:12; Stop 06/15/17 at 12:20; Status DC Morphine Sulfate (*morphine INJ PERIprocedure ONLY) 8 mg STK-MED ONCE .ROUTE ; Start 06/15/17 at 12:45; Stop 06/15/17 at 12:46; Status DC Lactated Ringer's 1,000 ml @ 150 mls/hr Q6H IV Last administered on 06/16/17 08:00; Start 06/15/17 at 14:00; Stop 06/16/17 at 09:59; Status DC Miscellaneous Information ALL NURSING DEPARTME... UNSCH PRN .XX SEE LABEL COMMENTS; Start 06/15/17 at 14:15; Stop 06/16/17 at 14:14; Status DC Enoxaparin Sodium (Lovenox Inj) 40 mg Q24H SQ Last administered on 06/17/17 14 :51; Start 06/16/17 at 14:00 Morphine Sulfate (Morphine Inj) 4 mg Q2H PRN IV PAIN SCALE 5 TO 10 Last administered on 06/16/17 17:57; Start 06/15/17 at 15:00 Sodium Chloride 1,000 ml @ 40 mls/hr Q24H IV Last administered on 06/17/17 06 :03; Start 06/16/17 at 10:00 Diatrizoate Meglum/ Diatrizoate Sod ( Gastroview Liq) 720 ml STK-MED ONCE RECTAL Last administered on 06/13/17 10:11; Start 06/13/17 at 10:11; Stop at 10:15; Status DC Metoprolol Tartrate (Lopressor) 50 mg Q8HR PO Last administered on 06/18/17 05 :02; Start 06/16/17 at 17:15 Furosemide (Lasix Inj) 40 mg ONCE ONCE IV PUSH Last administered on 06/17/17 18:04; Start 06/17/17 at 17:00; Stop 06/17/17 at 17:50; Status DC A/P Assessment and Plan A/P colon cancer Status post sigmoid stents secondary to obstructing mass Sigmoid diverticulosis Status post IR placement of sigmoid stent 06/13. s/p Low anterior resection with primary anastomosis and takedown of the splenic flexure. management per surgery. pathology with adenocarcinoma; will consult oncology. Postprocedure respiratory failure resolved COPD Titrate oxygen to maintain saturations greater than equal to 90% Incentive spirometry while awake. History of EtOH use History of THC use History of cataracts Patient's been treated with thiamine, folic acid and multivitamin. continue pain control. Monitor for DTs. Hypertension continue metoprolol will monitor and adjust the regimen as needed. Monitor urine output Accurate I's and O's will dc perez cath soon. Normocytic anemia Monitor CBCs daily. Follow trends. No indication for transfusion of blood product at this time. Hypokalemia Replaced. Prophylaxis - DVT subq Eda Saenz MD Jun 18, 2017 09:10
--- NOTE | 2017-06-18 11:50 | PD.CAR.PN ---
CVT Progress Note Subjective/Hospital Course: Referral received Full consult LOUISE J 06/10/17 Abdomen is soft patient states more tender in the right lower quadrant. No guarding however patient does have rebound tenderness Leukocytosis resolved The primary diagnosis seems to be somewhat unclear. We'll patient may have left sided diverticulitis this pattern of presentation is usually associated with pancolitis either infectious or related to later presentation of some sort of granulomatous disease like ulcerative colitis. All in all when everything calms down the patient will need colonoscopy with biopsies to establish the actual nature of this problem Based on the final diagnosis will best be able to decide when and in what fashion to proceed with surgery. Would continue IV antibiotics 06/11/17 Patient is improved subjectively. 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 CT scan may be revealing possible distal sigmoid mass. Discussed with Dr Curry. Suggest decrease narcotics, gastrografin enema tomorrow am, for patient will eventually develop ischemia and perforation if obstruction and dilatation persists. No acute abdomen requiring surgery at this time. If positive for a mass, patient will need decompressive colonoscopy, vs colon resection/decompression 06/13/17 Gastrografin enema confirms partial obstruction with a distal sigmoid mass. Discussed with gastroenterology Dr. James and the best way out of this would be sigmoidoscopy with a stent placement followed by washout and then definitive surgery next 48 hours. If this is not successful and we cannot decompress the patient then I will go ahead with surgery today. Have explained to the patient that he may and up with a temporary colostomy if were unable to wash the patient out and decompress 06/14/17 Patient underwent sigmoidoscopy with successful deployment off a stent. Sigmoidoscopy reveals friable low sigmoid/high rectal mass at the level of peritoneal reflection, consistent with carcinoma of the colon Mass was nearly completely obstructing the distal sigmoid and with placement of a stent patient passed a large amount of gas and liquid stool Post colonoscopy patient was transferred to ICU because of respiratory insufficiency, yet this has improved since. After the surgery patient will return to the same ICU sodium as well stay here overnight. Will give GoLYTELY through NG tube today and take patient to the operating room tomorrow for low anterior resection I've discussed risks and benefits with the patient 06/16/17 Patient status post low anterior resection with primary anastomosis Incisions clean and dry Abdomen is soft with few bowel sounds Plan Transferred to floor Out of bed with binder Keep Castelan and NG tube in place Keep David-Peace in place Decrease IV fluid rate In face off previous symptoms would continue Zosyn for another 48 hours 06/17/17 Abdomen soft Incision clean and dry DC JUAN A DC NG tube Clear liquid diet Continue current care we'll keep JUAN A in for another day or 2 Patient is somewhat hypervolemic and fluid overloaded so we'll decrease IV rate and diurese the patient gently 06/18/17 Patient is doing well at this time Incision clean and dry Patient having daily bowel movements passing gas Diet has been advanced DC David-Peace Remove Castelan Pathology oncology Patient has a adenocarcinoma of the sigmoid colon measuring about 6 cm in diameter with clean distal margins but penetration into pericolic tissue 12th lymph nodes negative for carcinoma Based on the above criteria patient has a T3 N0 lesion in will require additional chemotherapy. All things equal patient will be able to go home Friday Objective: Vital Signs Date Time Temp Pulse Resp B/P (MAP) Pulse Ox O2 Delivery O2 Flow Rate FiO2 06/18/17 08:00 98.0 67 17 152/83 (106) 96 06/18/17 04:00 99.0 80 20 164/89 (114) 93 06/18/17 00:00 99.2 74 18 159/88 (111) 92 06/17/17 23:00 84 162/79 (106) 06/17/17 21:00 92 Nasal Cannula 3.00 06/17/17 16:00 99.4 90 19 153/87 (109) 92 06/17/17 12:00 99.2 84 18 167/79 (108) 94 Result Diagram: 06/16/17 0507 06/16/17 0507 Trinh Enrique MD Jun 18, 2017 11:50
[2017-06-18 12:00] VITALS: BP 149/84; PULSE 72; RESP 18; TEMP 98.8; O2SAT 97
[2017-06-18] MEDS: ENOXAPARIN SODIUM 40 MG/0.4 ML SYRINGE SQ SCH (15:10)
[2017-06-18] MEDS: SODIUM CHLOR 0.9% 1000 ML INJ 1,000 ML IV SCH (15:11)
[2017-06-18 16:00] VITALS: BP 156/78; PULSE 72; RESP 16; TEMP 98.5; O2SAT 96
[2017-06-18 20:00] VITALS: BP 147/74; PULSE 69; RESP 18; TEMP 98.3; O2SAT 98
[2017-06-19] VITALS (8 sets, daily range): BP systolic 115–158; BP diastolic 67–90; PULSE 56–96; RESP 16–21; TEMP 98.1–99; O2SAT 95–97
[2017-06-19] MEDS: ENALAPRILAT 1.25 MG/ML VIAL IV PUSH SCH ×3 (05:53→22:18)
[2017-06-19 07:37] LABS: HEMATOCRIT 32.2 % (39.0-51.0); MEAN CELL VOLUME 92.2 FL (80.0-100.0); MEAN CORPUSCULAR HEMOGLOBIN 31.5 PG (27.0-34.0); MEAN CORPUSCULAR HGB CONC 34.2 % (32.0-36.0); PLATELET COUNT 471 TH/MM3 (150-450); RED BLOOD COUNT 3.49 MIL/MM3 (4.50-5.90); RED CELL DISTRIBUTION WIDTH 13.1 % (11.6-17.2); REVIEW FLAG FINAL; WHITE BLOOD COUNT 9.8 TH/MM3 (4.0-11.0)
--- NOTE | 2017-06-19 08:14 | MB ---
cc: KASSIDY PALM MD, RUBY ANNE E. M.D. DATE OF 1945 DATE OF SERVICE 06/18/[address] Groves[address] CHIEF COMPLA[address] Palm requests a consultation with Mr. Barksdale regarding newly diagnosed Stage T3 N0 M0 colorectal cancer. HISTORY OF PRESENT ILLNESS Mr. Barksdale is a 72-year-old man who presents with abdominal pain, bilateral lower quadrant worse in the right than the left. He states he has never been sick. 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 He is recently from his who of metastatic colorectal cancer. He attributes his 's progression due to refusing adjuvant chemotherapy. CT scan of the abdomen showed severe inflammatory changes in the right lower quadrant. There is focal wall thickening in the mid-sigmoid suggestive of diverticulitis. There is inflammation and a small abscess. Neoplasm is in the differential. There is also a marked wall thickening of the distal esophagus. He was seen by Gastroenterology who recommended endoscopic evaluation as an outpatient and conservative management during his hospitalization. He has no symptoms from the esophageal thickening. He was started on antibiotic therapy with initial plan to proceed with conservative management. His hospital course was complicated by obstruction in the sigmoid colon, eventually requiring a stent by Interventional Radiology on 06/06/2017. Dr. James performed a flex sigmoidoscopy with colonic stent placement showing the mass. On the 06/15/2017 he underwent low anterior resection with primary anastomosis and takedown of the splenic flexure by Dr. Enrique. The final pathology of the left hemicolectomy and sigmoidectomy was a 6-cm moderately differentiated adenocarcinoma. There is no microscopic tumor perforation. The tumor extends and invades through the muscularis propria into the pericolic soft tissue. All margins are involved by high-grade carcinoma, 0/12 lymph nodes positive. He has pathologic stage T3 N0 M0 disease. Imaging study included a chest x-ray that showed basilar infiltrate with small effusion but no abnormality to suggest metastatic disease. His CT scan of the abdomen and pelvis is as described above with the above findings. There is no liver lesion. REVIEW OF SYSTEMS Mr. Barksdale is recovering from his surgery. He is feeling better. Hematology/Oncology is consulted for the newly diagnosed colorectal cancer. He has mild anemia, baseline normocytic in nature. His CEA is 2.7, low at baseline. CA19-9 is normal. Renal function is normal. He denies any weight loss. No fevers, chills or night sweats. He has no changes in bowel habits. He drinks several beers per night at baseline. The rest of his review of systems is negative. PAST MEDICAL HISTORY None. PAST SURGICAL HISTORY Left hemicolectomy and sigmoidectomy. SOCIAL HISTORY Drinks six to seven beers daily. Denies any tobacco use. Uses marijuana occasionally. FAMILY HISTORY Father of a heart attack in his 20s. Mother of brain tumor when he was 14. He grew up in an orphanage until his sister was old enough to take care of him at the age of 16. He has six brothers and sisters. One sister at childbirth at age 14. PHYSICAL EXAMINATION VITALS: Temperature 98.5, heart rate 72, respiratory rate 16, blood pressure 156/78, saturation 96%. GENERAL: Mr. Barksdale is a well-developed, well-nourished man who looks his stated age. HEENT: His pupils are round, reactive to light and accommodation. Oropharynx is clear. NECK: Supple. LUNGS: Clear to auscultation. CARDIOVASCULAR: Exam reveals normal rate and rhythm. ABDOMEN: With mild distension, binder in place. LOWER EXTREMITIES: No edema. NEUROLOGICAL: Exam is nonfocal. LABORATORY DATA As described above. ASSESSMENT AND PLAN Mr. Barksdale is a 72-year-old man with no significant past history, significant history of drinking. He is diagnosed with invasive moderately differentiated adenocarcinoma of the sigmoid and descending colon. He has had definitive surgery. He has a pathologic stage T3 N0 M0 disease. We discussed the risks and benefits of adjuvant systemic chemotherapy. He is completely in favor of this as he attributes his 's demise due to her reluctance failure to accept adjuvant therapy. He is recently 6 months ago. We discussed in principle the rationale for adjuvant therapy in patients that are high risk such as himself. We discussed in general terms the mechanism action of chemotherapy and its intent. I recommend he continues to recover from his surgery. I anticipate seeing him back in clinic once he is discharged. We can coordinate complete staging evaluation prior to starting his adjuvant systemic chemotherapy. There should be no contraindication for his adjuvant therapy with FOLFOX/oxaliplatin. Noted is the distal esophagus that showed reflux esophagitis and acute ulceration. There is no evidence of Dsouza's. He has mild anemia. Anticipate that he will continue to recover. His albumin will likely recover. He does not appear to have overt liver disease despite his drinking. His questions were answered to his satisfaction. Whitney Uriostegui MD RAD/SSB /6:23 PM /7:54 AM
[2017-06-19] MEDS: SODIUM CHLORIDE 0.9% FLUSH 10 ML FLUSH IV FLUSH SCH ×2 (09:00→22:20)
[2017-06-19] MEDS ORDERED: oxyCODONE/ACETAMINOPHEN 5 MG/325 MG TAB PO PRN (09:45)
[2017-06-19] MEDS ORDERED: OXYC1TAB63 PO (09:50)
--- NOTE | 2017-06-19 09:59 | PD.CAR.PN ---
CVT Progress Note Subjective/Hospital Course: Referral received Full consult LOUISE J 06/10/17 Abdomen is soft patient states more tender in the right lower quadrant. No guarding however patient does have rebound tenderness Leukocytosis resolved The primary diagnosis seems to be somewhat unclear. We'll patient may have left sided diverticulitis this pattern of presentation is usually associated with pancolitis either infectious or related to later presentation of some sort of granulomatous disease like ulcerative colitis. All in all when everything calms down the patient will need colonoscopy with biopsies to establish the actual nature of this problem Based on the final diagnosis will best be able to decide when and in what fashion to proceed with surgery. Would continue IV antibiotics 06/11/17 Patient is improved subjectively. 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 CT scan may be revealing possible distal sigmoid mass. Discussed with Dr Curry. Suggest decrease narcotics, gastrografin enema tomorrow am, for patient will eventually develop ischemia and perforation if obstruction and dilatation persists. No acute abdomen requiring surgery at this time. If positive for a mass, patient will need decompressive colonoscopy, vs colon resection/decompression 06/13/17 Gastrografin enema confirms partial obstruction with a distal sigmoid mass. Discussed with gastroenterology Dr. James and the best way out of this would be sigmoidoscopy with a stent placement followed by washout and then definitive surgery next 48 hours. If this is not successful and we cannot decompress the patient then I will go ahead with surgery today. Have explained to the patient that he may and up with a temporary colostomy if were unable to wash the patient out and decompress 06/14/17 Patient underwent sigmoidoscopy with successful deployment off a stent. Sigmoidoscopy reveals friable low sigmoid/high rectal mass at the level of peritoneal reflection, consistent with carcinoma of the colon Mass was nearly completely obstructing the distal sigmoid and with placement of a stent patient passed a large amount of gas and liquid stool Post colonoscopy patient was transferred to ICU because of respiratory insufficiency, yet this has improved since. After the surgery patient will return to the same ICU sodium as well stay here overnight. Will give GoLYTELY through NG tube today and take patient to the operating room tomorrow for low anterior resection I've discussed risks and benefits with the patient 06/16/17 Patient status post low anterior resection with primary anastomosis Incisions clean and dry Abdomen is soft with few bowel sounds Plan Transferred to floor Out of bed with binder Keep Castelan and NG tube in place Keep David-Peace in place Decrease IV fluid rate In face off previous symptoms would continue Zosyn for another 48 hours 06/17/17 Abdomen soft Incision clean and dry DC JUAN A DC NG tube Clear liquid diet Continue current care we'll keep JUAN A in for another day or 2 Patient is somewhat hypervolemic and fluid overloaded so we'll decrease IV rate and diurese the patient gently 06/18/17 Patient is doing well at this time Incision clean and dry Patient having daily bowel movements passing gas Diet has been advanced DC David-Peace Remove Castelan Pathology oncology Patient has a adenocarcinoma of the sigmoid colon measuring about 6 cm in diameter with clean distal margins but penetration into pericolic tissue 12th lymph nodes negative for carcinoma Based on the above criteria patient has a T3 N0 lesion in will require additional chemotherapy. All things equal patient will be able to go home Friday06/19/17 Patient doing very well at this time Oncology consultation and recommendations are greatly appreciated and patient will follow up with oncology upon discharge Incisions clean and dry Abdomen is soft with active bowel sounds Patient has bowel movements since passing gas Advance diet All things equal patient will be discharged tomorrow to follow-up in my office and with oncology Objective: Vital Signs Date Time Temp Pulse Resp B/P (MAP) Pulse Ox O2 Delivery O2 Flow Rate FiO2 06/19/17 08:00 98.3 79 17 135/67 (89) 97 06/19/17 06:00 142/77 (98) 06/19/17 00:00 98.8 56 21 146/74 (98) 95 06/18/17 21:00 94 Nasal Cannula 3.00 06/18/17 20:00 98.3 69 18 147/74 (98) 98 06/18/17 16:00 98.5 72 16 156/78 (104) 96 06/18/17 12:00 98.8 72 18 149/84 (105) 97 Labs: Laboratory Tests Test 06/19/17 06:04 White Blood Count 9.8 TH/MM3 (4.0-11.0) Red Blood Count 3.49 MIL/MM3 (4.50-5.90) Hemoglobin 11.0 GM/DL (13.0-17.0) Hematocrit 32.2 % (39.0-51.0) Mean Corpuscular Volume 92.2 FL (80.0-100.0) Mean Corpuscular Hemoglobin 31.5 PG (27.0-34.0) Mean Corpuscular Hemoglobin Concent 34.2 % (32.0-36.0) Red Cell Distribution Width 13.1 % (11.6-17.2) Platelet Count 471 TH/MM3 (150-450) Mean Platelet Volume 7.6 FL (7.0-11.0) Result Diagram: 06/19/17 0604 06/16/17 0507 Trinh Enrique MD Jun 19, 2017 09:59
--- NOTE | 2017-06-19 11:49 | HHI.PR ---
Subjective Remarks resting comfortably with no distress. pain is controlled. no new complaints. Objective Vitals Vital Signs Date Time Temp Pulse Resp B/P (MAP) Pulse Ox O2 Delivery O2 Flow Rate FiO2 06/19/17 08:40 98.5 75 19 158/78 (104) 95 06/19/17 08:00 98.3 79 17 135/67 (89) 97 06/19/17 06:00 142/77 (98) 06/19/17 00:00 98.8 56 21 146/74 (98) 95 06/18/17 21:00 94 Nasal Cannula 3.00 06/18/17 20:00 98.3 69 18 147/74 (98) 98 06/18/17 16:00 98.5 72 16 156/78 (104) 96 06/18/17 12:00 98.8 72 18 149/84 (105) 97 I/O 06/18/17 06/18/17 06/18/17 06/19/17 06/19/17 06/19/17 07:00 15:00 23:00 07:00 15:00 23:00 Intake Total 2283 ml 101 ml 1291 ml 311 ml Output Total 5 ml 405 ml 1000 ml 1400 ml Balance 2278 ml -304 ml 291 ml -1089 ml Intake Oral 1020 ml IV Total 2283 ml 101 ml 271 ml 311 ml Output Urine Total 400 ml 1000 ml 1400 ml Drainage Total 5 ml 5 ml # Voids 2 # Bowel Movements 2 Result Diagram: 06/19/17 0604 06/16/17 0507 Imaging Last Impressions GI Procedure 06/13/17 0000 Signed Impressions: Service Date/Time: Tuesday, June 13, 2017 13:43 - CONCLUSION: 1. Uncomplicated stenting of an obstructing mass in the distal sigmoid colon. Mika Curry MD Enema w/Water Soluble 06/13/17 0000 Signed Impressions: Service Date/Time: Tuesday, June 13, 2017 09:41 - CONCLUSION: Apple core type lesion involving the sigmoid colon is characteristic of colon cancer. Daryl Rene MD Chest X-Ray 06/13/17 0000 Signed Impressions: Service Date/Time: Tuesday, June 13, 2017 15:53 - CONCLUSION: Bibasilar infiltrates with small left effusion. I am unable to assess the pulmonary vasculature due to the degree of inspiration. Tomas Randall Jr., MD Abdomen/Pelvis CT 06/12/17 0000 Signed Impressions: Service Date/Time: May 16:53 - CONCLUSION: 1. Apple core type lesion worrisome for colon cancer involving the sigmoid colon causing obstruction and worsening bowel gas pattern with multiple loops of borderline dilated air-containing small bowel now noted with multiple air-fluid levels. The degree of colonic distention is not significantly changed. Findings there are concerning for partial bowel obstruction. 2. Inflammatory change remains greatest in right side of the abdomen and pelvis. 3. New small pleural effusions with consolidation in both posterior lung bases. 4. A small amount of ascitic fluid is present which is increased from the prior study as well. Dr. Sanchez was notified of these findings. Daryl Rene MD Abdomen X-Ray 06/12/17 0000 Signed Impressions: Service Date/Time: May 17:10 - CONCLUSION: Gaseous distention of the colon as above. There is possible obstruction in the distal sigmoid. Mika Curry MD Objective Remarks GENERAL: This is a well-nourished, well-developed patient, in no apparent distress. CARDIOVASCULAR: Regular rate and regular rhythm without murmurs, gallops, or rubs. RESPIRATORY: Clear to auscultation. Breath sounds equal bilaterally. No wheezes , rales, or rhonchi. GASTROINTESTINAL: Abdomen soft, covered with clean dressing. MUSCULOSKELETAL: Extremities without clubbing, cyanosis, or edema. NEURO: Alert & Oriented x4 to person, place, time, situation. Moves all ext x4 Procedures EGD colonoscopy Low anterior resection with primary anastomosis and takedown of the splenic flexure. Medications and IVs Current Medications Sodium Chloride (NS Flush) 2 ml UNSCH PRN IV FLUSH FLUSH AFTER USING IV ACCESS ; Start 06/09/17 at 00:30 Sodium Chloride (NS Flush) 2 ml BID IV FLUSH Last administered on 06/18/17 08: 33; Start 06/09/17 at 09:00 Ondansetron HCl (Zofran Inj) 4 mg Q6H PRN IVP NAUSEA OR VOMITING Last administered on 06/11/17 08:12; Start 06/09/17 at 00:30 Naloxone HCl (Narcan Inj) 0.4 mg UNSCH PRN IV SEE LABEL COMMENTS; Start at 00:30 Flumazenil (Romazicon Inj) 0.2 mg Q1M PRN IV PUSH SEE LABEL COMMENTS; Start at 00:30 Lorazepam (Ativan) 1 mg Q4H PRN PO CIWA 8 - 10 Last administered on 06/09/17 17:52; Start 06/09/17 at 00:30 Lorazepam (Ativan Inj) 1 mg Q4H PRN IV PUSH CIWA 8 - 10; Start 06/09/17 at 00: 30 Lorazepam (Ativan) 2 mg Q2H PRN PO CIWA 11-14; Start 06/09/17 at 00:30 Lorazepam (Ativan Inj) 2 mg Q2H PRN IV PUSH CIWA 11-14; Start 06/09/17 at 00:30 Lorazepam (Ativan Inj) 2 mg Q1H PRN IV PUSH CIWA 15-20; Start 06/09/17 at 00:30 Lorazepam (Ativan Inj) 2 mg Q15M PRN IV PUSH CIWA > 20; Start 06/09/17 at 00:30 Piperacillin Sod/ Tazobactam Sod 50 ml @ 100 mls/hr Q6HR IV Last administered on 06/18/17 05:02; Start 06/09/17 at 06:00; Stop 06/18/17 at 11:46; Status DC Potassium Chloride/Sodium Chloride 1,000 ml @ 100 mls/hr Q10H IV Last administered on 06/12/17 08:45; Start 06/09/17 at 00:45; Stop 06/12/17 at 11:09 ; Status DC Morphine Sulfate (Morphine Inj) 2 mg Q3H PRN IV PUSH PAIN SCALE 5 TO 10 Last administered on 06/09/17 09:39; Start 06/09/17 at 00:45; Stop 06/09/17 at 12:25 ; Status DC Pneumococcal Polyvalent Vaccine (Pneumovax-23 Inj) 25 mcg ONCE ONCE IM ; Start 06/10/17 at 09:00; Stop 06/10/17 at 09:01; Status DC Influenza Virus Vaccine (Flu (Quadrivalent) Vaccine Inj) 0.5 ml ONCE ONCE IM ; Start 06/10/17 at 09:00; Stop 06/10/17 at 09:01; Status Cancel Pantoprazole Sodium (Protonix Inj) 40 mg Q24H IV PUSH Last administered on 06/11 08:09; Start 06/09/17 at 11:00; Stop 06/12/17 at 11:10; Status DC Morphine Sulfate (Morphine Inj) 4 mg ONCE ONCE IV PUSH Last administered on 13:49; Start 06/09/17 at 12:30; Stop 06/09/17 at 12:31; Status DC Morphine Sulfate (Morphine Inj) 4 mg Q3H PRN IV PUSH PAIN SCALE 5 TO 10 Last administered on 06/11/17 17:55; Start 06/09/17 at 16:00; Stop 06/11/17 at 18:42 ; Status DC Pantoprazole Sodium (Protonix Inj) 40 mg Q24H IV PUSH ; Start 06/09/17 at 13:45 ; Status UNV Multivitamins 10 ml/Folic Acid 1 mg/Sodium Chloride 510.2 ml @ 125 mls/hr Q24H IV Last administered on 06/13/17 17:00; Start 06/09/17 at 17:00; Stop at 16:59; Status DC Thiamine HCl 100 mg/Sodium Chloride 101 ml @ 100 mls/hr Q24H IV Last administered on 06/11/17 20:31; Start 06/09/17 at 17:00; Stop 06/12/17 at 09:59 ; Status DC Thiamine HCl (Vitamin B1) 100 mg DAILY PO Last administered on 06/12/17 10:17 ; Start 06/10/17 at 09:00; Status Future Hold Enalaprilat (Vasotec Inj) 1.25 mg Q6H PRN IV PUSH SBP> OR = 180, DBP> OR = 100 Last administered on 06/13/17 11:55; Start 06/09/17 at 16:00; Stop at 18:24; Status DC Potassium Chloride (KCl) 20 meq ONCE ONCE PO Last administered on 06/10/17 11 :33; Start 06/10/17 at 11:00; Stop 06/10/17 at 11:01; Status DC Lisinopril (Prinivil) 10 mg DAILY PO Last administered on 06/13/17 09:15; Start 06/10/17 at 11:00; Status Future Hold Al Hydrox/Mg Hydrox/Simethicone (Mag-Al Plus Susp Liq) 30 ml ONCE ONCE PO Last administered on 06/10/17 11:56; Start 06/10/17 at 12:15; Stop 06/10/17 at 12:16; Status DC Al Hydrox/Mg Hydrox/Simethicone (Mag-Al Plus Susp Liq) 30 ml Q6H PRN PO DYSPEPSIA OR HEARTBURN; Start 06/10/17 at 17:00 Propofol (Diprivan 200 Mg/20 ml Inj) 140 mg STK-MED ONCE IV PUSH ; Start at 11:09; Stop 06/11/17 at 11:10; Status DC Morphine Sulfate (Morphine Inj) 2 mg Q4H PRN IV BREAKTHROUGH PAIN Last administered on 06/13/17 09:16; Start 06/11/17 at 19:00; Stop 06/13/17 at 12:05 ; Status DC Acetaminophen/ Hydrocodone Bitart ([place] 5-325 Mg) 1 tab Q4H PRN PO PAIN SCALE 1-5; Start 06/11/17 at 19:00; Stop 06/13/17 at 12:04; Status DC Acetaminophen/ Hydrocodone Bitart ([place] 10-325 Mg) 1 tab Q4H PRN PO PAIN SCALE 6-10 Last administered on 06/13/17 07:10; Start 06/11/17 at 19:00; Stop 06/13/17 at 12:04; Status DC Clonidine (Catapres) 0.1 mg Q6H PRN PO SBP> OR = 180, DBP> OR = 100 Last administered on 06/13/17 00:34; Start 06/12/17 at 08:00; Stop 06/13/17 at 12:06 ; Status DC Pantoprazole Sodium (Protonix) 40 mg DAILY PO Last administered on 06/12/17 12 :27; Start 06/12/17 at 11:15; Stop 06/13/17 at 12:05; Status DC Polyethylene Glycol (Miralax) 17 gm DAILY PO Last administered on 06/12/17 12: 27; Start 06/12/17 at 11:30; Stop 06/13/17 at 12:05; Status DC Senna/Docusate Sodium (Flor-Colace) 1 tab BID PO Last administered on 20:46; Start 06/12/17 at 21:00; Stop 06/13/17 at 12:04; Status DC Magnesium Hydroxide (Milk Of Magnesia Liq) 30 ml Q12H PRN PO MILD - MODERATE CONSTIPATION; Start 06/12/17 at 15:00; Stop 06/13/17 at 12:05; Status DC Sennosides (Senokot) 17.2 mg Q12H PRN PO MODERATE - SEVERE CONSTIPATION; Start 06/12/17 at 15:00; Stop 06/13/17 at 12:05; Status DC Bisacodyl (Dulcolax Supp) 10 mg DAILY PRN RECTAL SEVERE CONSITIPATION; Start at 15:00; Stop 06/13/17 at 12:04; Status DC Lactulose (Lactulose Liq) 30 ml DAILY PRN PO SEVERE CONSITIPATION Last administered on 06/12/17 15:19; Start 06/12/17 at 15:00; Stop 06/13/17 at 12:05 ; Status DC Atenolol (Tenormin) 25 mg DAILY PO Last administered on 06/13/17 09:15; Start 06/12/17 at 15:00; Status Future Hold Hydromorphone HCl (Dilaudid Pf Inj) 0.5 mg ONCE ONCE IV PUSH Last administered on 06/12/17 16:28; Start 06/12/17 at 16:15; Stop 06/12/17 at 16:16 ; Status DC Iohexol (Omnipaque 350 Inj) 69 ml STK-MED ONCE IV Last administered on 17:08; Start 06/12/17 at 17:08; Stop 06/12/17 at 17:09; Status DC Diatrizoate Meglum/ Diatrizoate Sod ( Gastroview Liq) 18 ml ONCE ONCE PO Last administered on 06/12/17 20:48; Start 06/12/17 at 16:22; Stop 06/12/17 at 18:57; Status DC Sodium Chloride 1,000 ml @ 100 mls/hr Q10H IV Last administered on 06/14/17 06:10; Start 06/13/17 at 01:45; Stop 06/14/17 at 07:01; Status DC Morphine Sulfate (Morphine Inj) 4 mg Q4H PRN IV PAIN SCALE 5 TO 10 Last administered on 06/15/17 13:31; Start 06/13/17 at 15:00; Stop 06/15/17 at 14:55 ; Status DC Pantoprazole Sodium (Protonix Inj) 40 mg Q24H IV PUSH Last administered on 06/17 14:50; Start 06/13/17 at 13:00; Stop 06/18/17 at 11:46; Status DC Clonidine (Catapres-Tts 0.1mg Patch.7d) 1 patch Q7D T-DERMAL Last administered on 06/13/17 16:14; Start 06/13/17 at 14:00 Acetaminophen (Ofirmev Inj) 1,000 mg STK-MED ONCE IV Last administered on 13:07; Start 06/13/17 at 13:02; Stop 06/13/17 at 13:03; Status DC Midazolam HCl (Versed Inj) 2 mg STK-MED ONCE .ROUTE Last administered on 13:04; Start 06/13/17 at 13:02; Stop 06/13/17 at 13:03; Status DC Dexamethasone Sodium Phosphate (Decadron Inj) 4 mg STK-MED ONCE .ROUTE Last administered on 06/13/17 13:05; Start 06/13/17 at 13:02; Stop 06/13/17 at 13:03 ; Status DC Famotidine (Pepcid Inj) 20 mg STK-MED ONCE .ROUTE Last administered on 13:03; Start 06/13/17 at 13:02; Stop 06/13/17 at 13:03; Status DC Labetalol HCl (*TRANDATE INJ PERIprocedural Use ONLY) 100 mg STK-MED ONCE .ROUTE Last administered on 06/13/17 14:38; Start 06/13/17 at 14:38; Stop at 14:39; Status DC Fentanyl Citrate (fentaNYL INJ) 250 mcg STK-MED ONCE .ROUTE ; Start 06/13/17 at 14:40; Stop 06/13/17 at 14:41; Status DC Iohexol (Omnipaque 350 Inj) 200 ml STK-MED ONCE OTHER Last administered on 06/13 13:20; Start 06/13/17 at 13:20; Stop 06/13/17 at 14:42; Status DC Albuterol Sulfate (*ALBUTEROL NEB PERIprocedure ONLY) 2.5 mg STK-MED ONCE NEB Last administered on 06/13/17 14:53; Start 06/13/17 at 14:53; Stop 06/13/17 at 14:54; Status DC Propofol (Diprivan 200 Mg/20 ml Inj) 200 mg STK-MED ONCE IV ; Start 06/13/17 at 15:16; Stop 06/13/17 at 15:17; Status DC Lactated Ringer's (Lr 1000 ml Inj) 1,000 ml STK-MED ONCE IV ; Start 06/13/17 at 14:40; Stop 06/13/17 at 15:18; Status DC Succinylcholine Chloride (Quelicin Inj) 200 mg STK-MED ONCE IV ; Start 06/13/17 at 14:40; Stop 06/13/17 at 15:19; Status DC Phenylephrine HCl (Neosynephrine/ NS 1000 Mcg/10ml Syr) 1,000 mcg STK-MED ONCE IV ; Start 06/13/17 at 14:40; Stop 06/13/17 at 15:19; Status DC Ondansetron HCl (Zofran Inj) 4 mg STK-MED ONCE IV PUSH ; Start 06/13/17 at 14:40 ; Stop 06/13/17 at 15:19; Status DC Miscellaneous Information ALL NURSING DEPARTME... UNSCH PRN .XX SEE LABEL COMMENTS; Start 06/13/17 at 16:45; Stop 06/14/17 at 16:44; Status DC Labetalol HCl (Trandate Inj) 20 mg Q3H PRN IV PUSH SBP > 160 Last administered on 06/14/17 02:49; Start 06/13/17 at 18:30; Stop 06/14/17 at 06:58; Status DC Enalaprilat (Vasotec Inj) 2.5 mg Q6H PRN IV PUSH SBP > 170 Last administered on 06/14/17t 04:18; Start 06/13/17 at 18:30; Stop 06/14/17 at 06:58; Status DC Metoprolol Tartrate (Lopressor Inj) 5 mg Q6HR IV PUSH Last administered on 06/16 12:32; Start 06/13/17 at 18:30; Stop 06/16/17 at 17:10; Status DC Heparin Sodium (Porcine) (Heparin Inj) 5,000 units Q8H SQ Last administered on 06/14/17 08:27; Start 06/14/17 at 09:00; Stop 06/14/17 at 17:57; Status DC Enalaprilat (Vasotec Inj) 1.25 mg Q6H PRN IV PUSH SBP > 170; Start 06/14/17 at 12:30 Labetalol HCl (Trandate Inj) 10 mg Q1HR PRN IV PUSH SBP>160, DBP>90, HR>65 Last administered on 06/14/17 19:58; Start 06/14/17 at 07:00; Stop 06/19/17 at 09:47; Status DC Hydralazine HCl (Apresoline Inj) 10 mg Q1HR PRN IV PUSH SBP>160, DBP>90 Last administered on 06/16/17 14:12; Start 06/14/17 at 07:00; Stop 06/19/17 at 09:47 ; Status DC Nitroglycerin (Nitroglycerin 2% Oint) 2 inch Q6HR PRN TOPICAL SBP>160, DBP>90; Start 06/14/17 at 07:00 Enalaprilat (Vasotec Inj) 1.25 mg Q8H IV PUSH Last administered on 06/19/17 05:53; Start 06/14/17 at 07:00 Thiamine HCl 100 mg/Sodium Chloride 101 ml @ 101 mls/hr DAILY IV Last administered on 06/18/17 08:33; Start 06/14/17 at 09:00; Stop 06/19/17 at 09:47 ; Status DC Potassium Chloride/Sodium Chloride 1,000 ml @ 100 mls/hr Q10H IV Last administered on 06/15/17 02:28; Start 06/14/17 at 07:00; Stop 06/15/17 at 20:13 ; Status DC Potassium Chloride 100 ml @ 100 mls/hr Q1H IV Last administered on 06/14/17 08:26; Start 06/14/17 at 07:00; Stop 06/14/17 at 10:01; Status DC Albuterol/ Ipratropium (Duoneb Neb) 1 ampule Q6HR NEB NEB Last administered on 06/14/17 09:47; Start 06/14/17 at 10:00; Stop 06/18/17 at 10:04; Status DC Albuterol Sulfate (Albuterol Neb) 2.5 mg Q2HR NEB PRN NEB DYSPNEA; Start at 07:00 Polyethylene Glycol/ Electrolytes (Colyte Liq) 4,000 ml ONCE ONCE NG Last administered on 06/14/17 10:40; Start 06/14/17 at 10:15; Stop 06/14/17 at 10:31 ; Status DC Piperacillin Sod/ Tazobactam Sod 100 ml @ 200 mls/hr ONCE ONCE IV ; Start at 09:00; Stop 06/15/17 at 09:29; Status UNV Potassium Chloride (KCl) 40 meq ONCE ONCE PO Last administered on 06/15/17 05 :46; Start 06/15/17 at 05:45; Stop 06/15/17 at 05:46; Status DC Potassium Chloride 100 ml @ 100 mls/hr Q1H IV Last administered on 06/15/17 10:45; Start 06/15/17 at 05:45; Stop 06/15/17 at 11:44; Status DC Potassium Chloride (KCl Powder) 80 meq NOW NG Last administered on 06/15/17 06 :56; Start 06/15/17 at 07:00; Stop 06/15/17 at 09:00; Status DC Bupivacaine HCl/ Epinephrine Bitart (Sensorcaine-Epinephrine 0.25% Inj) 50 ml STK-MED ONCE .ROUTE ; Start 06/15/17 at 07:04; Stop 06/15/17 at 07:05; Status DC Dextrose (D50w (Vial) Inj) 50 ml UNSCH PRN IV HYPOGLYCEMIA-SEE COMMENTS; Start 06/15/17 at 07:30 Glucagon (Glucagon Inj) 1 mg STAT PRN IM HYPOGLYCEMIA-SEE COMMENTS; Start 06/15 at 07:30 Fentanyl Citrate (fentaNYL INJ) 500 mcg STK-MED ONCE .ROUTE ; Start 06/15/17 at 09:21; Stop 06/15/17 at 12:08; Status DC Enalaprilat (*VASOTEC INJ PERIprocedural Use ONLY) 1.25 mg STK-MED ONCE .ROUTE ; Start 06/15/17 at 11:58; Stop 06/15/17 at 12:19; Status DC Labetalol HCl (*TRANDATE INJ PERIprocedural Use ONLY) 100 mg STK-MED ONCE .ROUTE ; Start 06/15/17 at 11:58; Stop 06/15/17 at 12:19; Status DC Morphine Sulfate (*morphine INJ PERIprocedure ONLY) 8 mg STK-MED ONCE .ROUTE ; Start 06/15/17 at 12:12; Stop 06/15/17 at 12:20; Status DC Morphine Sulfate (*morphine INJ PERIprocedure ONLY) 8 mg STK-MED ONCE .ROUTE ; Start 06/15/17 at 12:45; Stop 06/15/17 at 12:46; Status DC Lactated Ringer's 1,000 ml @ 150 mls/hr Q6H IV Last administered on 06/16/17 08:00; Start 06/15/17 at 14:00; Stop 06/16/17 at 09:59; Status DC Miscellaneous Information ALL NURSING DEPARTME... UNSCH PRN .XX SEE LABEL COMMENTS; Start 06/15/17 at 14:15; Stop 06/16/17 at 14:14; Status DC Enoxaparin Sodium (Lovenox Inj) 40 mg Q24H SQ Last administered on 06/18/17 15 :10; Start 06/16/17 at 14:00 Morphine Sulfate (Morphine Inj) 4 mg Q2H PRN IV PAIN SCALE 7 TO 10 Last administered on 06/16/17 17:57; Start 06/15/17 at 15:00 Sodium Chloride 1,000 ml @ 40 mls/hr Q24H IV Last administered on 06/18/17 15 :11; Start 06/16/17 at 10:00; Stop 06/19/17 at 09:47; Status DC Diatrizoate Meglum/ Diatrizoate Sod ( Gastroview Liq) 720 ml STK-MED ONCE RECTAL Last administered on 06/13/17 10:11; Start 06/13/17 at 10:11; Stop at 10:15; Status DC Metoprolol Tartrate (Lopressor) 50 mg Q8HR PO Last administered on 06/18/17 05 :02; Start 06/16/17 at 17:15; Stop 06/18/17 at 11:46; Status DC Furosemide (Lasix Inj) 40 mg ONCE ONCE IV PUSH Last administered on 06/17/17 18:04; Start 06/17/17 at 17:00; Stop 06/17/17 at 17:50; Status DC Oxycodone/ Acetaminophen (Percocet 5-325 Mg) 1 tab Q4H PRN PO pain 3-6; Start 06/19/17 at 09:45 A/P Assessment and Plan A/P colon cancer Status post sigmoid stents secondary to obstructing mass Sigmoid diverticulosis Status post IR placement of sigmoid stent 06/13. s/p Low anterior resection with primary anastomosis and takedown of the splenic flexure. management per surgery. pathology with adenocarcinoma- oncology consult appreciated; f/u as outpatient. Postprocedure respiratory failure resolved COPD Titrate oxygen to maintain saturations greater than equal to 90% Incentive spirometry while awake. History of EtOH use History of THC use History of cataracts Patient's been treated with thiamine, folic acid and multivitamin. continue pain control. Monitor for DTs. Hypertension continue metoprolol will monitor and adjust the regimen as needed. Monitor urine output Accurate I's and O's will dc perez cath soon. Normocytic anemia H/H stable. Hypokalemia Replaced. Prophylaxis - DVT subq Lovenox Discharge Planning dc home tomorrow if stable and cleared by surgery. Eda Palm MD Jun 19, 2017 11:49
--- NOTE | 2017-06-19 15:23 | PD.ONC.PN ---
Subjective Subjective Remarks Afebrile Minimal pain to abdomen Looking forward to going home Objective Data Date Time Temp Pulse Resp B/P (MAP) Pulse Ox O2 Delivery O2 Flow Rate FiO2 06/19/17 13:38 98.6 76 17 128/78 (95) 95 06/19/17 12:00 99.0 96 17 132/79 (96) 96 06/19/17 08:40 98.5 75 19 158/78 (104) 95 06/19/17 08:00 98.3 79 17 135/67 (89) 97 06/19/17 06:00 142/77 (98) 06/19/17 00:00 98.8 56 21 146/74 (98) 95 06/18/17 21:00 94 Nasal Cannula 3.00 06/18/17 20:00 98.3 69 18 147/74 (98) 98 06/18/17 16:00 98.5 72 16 156/78 (104) 96 06/19/17 06/19/17 06/19/17 06:59 14:59 22:59 Intake Total 311 ml 601 ml Output Total 1400 ml 230 ml Balance -1089 ml 371 ml Result Diagram: 06/19/17 0604 06/16/17 0507 Laboratory Results Laboratory Tests Test 06/19/17 06:04 White Blood Count 9.8 TH/MM3 Red Blood Count 3.49 MIL/MM3 Hemoglobin 11.0 GM/DL Hematocrit 32.2 % Mean Corpuscular Volume 92.2 FL Mean Corpuscular Hemoglobin 31.5 PG Mean Corpuscular Hemoglobin Concent 34.2 % Red Cell Distribution Width 13.1 % Platelet Count 471 TH/MM3 Mean Platelet Volume 7.6 FL Administered Medications Medications (Trade) Dose Ordered Sig/Paolo Route PRN Reason Start Time Stop Time Status Last Admin Dose Admin Sodium Chloride (NS Flush) 2 ml BID IV FLUSH 06/09/17 09:00 06/18/17 08:33 Ondansetron HCl (Zofran Inj) 4 mg Q6H PRN IVP NAUSEA OR VOMITING 06/09/17 00:30 06/11/17 08:12 Lorazepam (Ativan) 1 mg Q4H PRN PO CIWA 8 - 10 06/09/17 00:30 06/09/17 17:52 Thiamine HCl (Vitamin B1) 100 mg DAILY PO 06/10/17 09:00 Future Hold 06/12/17 10:17 Lisinopril (Prinivil) 10 mg DAILY PO 06/10/17 11:00 Future hold 06/13/17 09:15 Atenolol (Tenormin) 25 mg DAILY PO 06/12/17 15:00 Future Hold 06/13/17 09:15 Clonidine (Catapres-Tts 0.1mg Patch.7d) 1 patch Q7D T-DERMAL 06/13/17 14:00 06/13/17 16:14 Enalaprilat (Vasotec Inj) 1.25 mg Q8H IV PUSH 06/14/17 07:00 06/19/17 05:53 Enoxaparin Sodium (Lovenox Inj) 40 mg Q24H SQ 06/16/17 14:00 06/18/17 15:10 Morphine Sulfate (Morphine Inj) 4 mg Q2H PRN IV PAIN SCALE 7 TO 10 06/15/17 15:00 06/16/17 17:57 Objective Remarks GENERAL: Older male sitting up in chair at bedside in no distress SKIN: Warm and dry. +Vitiligo. HEAD: Normocephalic. EYES: No injection or drainage. NECK: Supple, trachea midline. CARDIOVASCULAR: Regular rate and rhythm without murmurs. RESPIRATORY: Clear anteriorly. Breathing unlabored. GASTROINTESTINAL: Abdominal binder in place. Soft and nontender to light palpation. EXTREMITIES: No cyanosis, or edema. MUSCULOSKELETAL: Adequate muscle tone. NEUROLOGICAL: No obvious focal deficit. Awake, alert, and oriented x3. 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 A CT scan showed diverticulitis with a differential of neoplasm. In the course of the hospitalization he developed a obstruction in the sigmoid colon. On June 15 he underwent resection and pathology showed a 6 cm moderately differentiated adenocarcinoma. He has no distant metastases. He has been diagnosed with T3 N0 M0 disease. Of note, his recently 6 months ago from metastatic colon cancer. Assessment 72 y/o male recently diagnosed with colorectal cancer Plan 1. Follow up in clinic after discharge 2. Once healed from surgery, we will proceed with adjuvant systemic chemotherapy with FOLFOX. Attending Statement Agree with above, as discussed. FU in outpt clinic for adjuvant chemotherapy. Holley Hickman Jun 19, 2017 15:22 Whitney Uriostegui MD Jun 19, 2017 23:34
[2017-06-19] MEDS: ENOXAPARIN SODIUM 40 MG/0.4 ML SYRINGE SQ SCH (16:26)
[2017-06-20] VITALS: BP 158/85; PULSE 76; RESP 16; TEMP 96.3; O2SAT 95
[2017-06-20] MEDS: ENALAPRILAT 1.25 MG/ML VIAL IV PUSH SCH (07:22)
[2017-06-20] MEDS: LISINOPRIL 10 MG TAB PO SCH (07:43)
[2017-06-20] MEDS: SODIUM CHLORIDE 0.9% FLUSH 10 ML FLUSH IV FLUSH SCH (07:43)
[2017-06-20 08:00] VITALS: BP 133/77; PULSE 77; RESP 20; TEMP 98.6; O2SAT 97
[2017-06-20 08:15] VITALS: BP 150/70; PULSE 70; RESP 18; TEMP 98.4; O2SAT 94
[2017-06-20 09:15] VITALS: BP 140/70; PULSE 70; RESP 18; TEMP 98.6; O2SAT 95
--- NOTE | 2017-06-20 09:32 | PD.ONC.PN ---
Subjective Subjective Remarks Afebrile Looking forward to being discharged today The abdominal pain is when standing Objective Data Date Time Temp Pulse Resp B/P (MAP) Pulse Ox O2 Delivery O2 Flow Rate FiO2 06/20/17 00:00 96.3 76 16 158/85 (109) 95 06/19/17 20:00 98.2 75 16 115/81 (92) 97 06/19/17 16:00 98.1 81 17 153/90 (111) 95 06/19/17 13:38 98.6 76 17 128/78 (95) 95 06/19/17 12:00 99.0 96 17 132/79 (96) 96 06/20/17 06/20/17 06/20/17 07:00 15:00 23:00 Output Total 600 ml Balance -600 ml Result Diagram: 06/19/17 0604 06/16/17 0507 Administered Medications Medications (Trade) Dose Ordered Sig/Paolo Route PRN Reason Start Time Stop Time Status Last Admin Dose Admin Sodium Chloride (NS Flush) 2 ml BID IV FLUSH 06/09/17 09:00 06/20/17 07:43 Ondansetron HCl (Zofran Inj) 4 mg Q6H PRN IVP NAUSEA OR VOMITING 06/09/17 00:30 06/11/17 08:12 Lorazepam (Ativan) 1 mg Q4H PRN PO CIWA 8 - 10 06/09/17 00:30 06/09/17 17:52 Thiamine HCl (Vitamin B1) 100 mg DAILY PO 06/10/17 09:00 Future Hold 06/12/17 10:17 Lisinopril (Prinivil) 10 mg DAILY PO 06/10/17 11:00 Future hold 06/20/17 07:43 Atenolol (Tenormin) 25 mg DAILY PO 06/12/17 15:00 Future Hold 06/13/17 09:15 Clonidine (Catapres-Tts 0.1mg Patch.7d) 1 patch Q7D T-DERMAL 06/13/17 14:00 06/13/17 16:14 Enalaprilat (Vasotec Inj) 1.25 mg Q8H IV PUSH 06/14/17 07:00 06/20/17 07:22 Enoxaparin Sodium (Lovenox Inj) 40 mg Q24H SQ 06/16/17 14:00 06/19/17 16:26 Morphine Sulfate (Morphine Inj) 4 mg Q2H PRN IV PAIN SCALE 7 TO 10 06/15/17 15:00 06/16/17 17:57 Objective Remarks GENERAL: Older male sitting up in chair at bedside in no distress SKIN: Warm and dry. +Vitiligo. HEAD: Normocephalic. EYES: No injection or drainage. NECK: Supple, trachea midline. CARDIOVASCULAR: Regular rate and rhythm without murmurs. RESPIRATORY: Clear anteriorly. Breathing unlabored. GASTROINTESTINAL: Vertical incision too low to mid abdomen. Small amount of dried blood noted on dressing. EXTREMITIES: No cyanosis, or edema. MUSCULOSKELETAL: Adequate muscle tone. NEUROLOGICAL: No obvious focal deficit. Awake, alert, and oriented x3. 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 A CT scan showed diverticulitis with a differential of neoplasm. In the course of the hospitalization he developed a obstruction in the sigmoid colon. On June 15 he underwent resection and pathology showed a 6 cm moderately differentiated adenocarcinoma. He has no distant metastases. He has been diagnosed with T3 N0 M0 disease. Of note, his recently 6 months ago from metastatic colon cancer. Assessment 72 y/o male recently diagnosed with colorectal cancer Plan 1. Face sheet faxed to new patient referrals 2. Follow up in clinic in 2-[address] Uriostegui 3. Plan to start chemotherapy with FOLFOX when healed from surgery Holley Hickman Jun 20, 2017 09:32
--- NOTE | 2017-06-20 10:32 | HHI.PR ---
Subjective Remarks resting comfortably with no distress. has mild abdominal discomfort. otherwise no other complaints and anxious to go home. d/w the RN and no acute issues over night. Objective Vitals Vital Signs Date Time Temp Pulse Resp B/P (MAP) Pulse Ox O2 Delivery O2 Flow Rate FiO2 06/20/17 08:00 98.6 77 20 133/77 (95) 97 06/20/17 00:00 96.3 76 16 158/85 (109) 95 06/19/17 20:00 98.2 75 16 115/81 (92) 97 06/19/17 16:00 98.1 81 17 153/90 (111) 95 06/19/17 13:38 98.6 76 17 128/78 (95) 95 06/19/17 12:00 99.0 96 17 132/79 (96) 96 I/O 06/19/17 06/19/17 06/19/17 06/20/17 06/20/17 06/20/17 07:00 15:00 23:00 07:00 15:00 23:00 Intake Total 311 ml 805 ml Output Total 1400 ml 230 ml 600 ml Balance -1089 ml 575 ml -600 ml Intake Oral 600 ml IV Total 311 ml 205 ml Output Urine Total 1400 ml 230 ml 600 ml # Voids 2 1 # Bowel Movements 2 0 Result Diagram: 06/19/17 0604 06/16/17 0507 Imaging Last Impressions GI Procedure 06/13/17 0000 Signed Impressions: Service Date/Time: Tuesday, June 13, 2017 13:43 - CONCLUSION: 1. Uncomplicated stenting of an obstructing mass in the distal sigmoid colon. Mika Curry MD Enema w/Water Soluble 06/13/17 0000 Signed Impressions: Service Date/Time: Tuesday, June 13, 2017 09:41 - CONCLUSION: Apple core type lesion involving the sigmoid colon is characteristic of colon cancer. Daryl Rene MD Chest X-Ray 06/13/17 0000 Signed Impressions: Service Date/Time: Tuesday, June 13, 2017 15:53 - CONCLUSION: Bibasilar infiltrates with small left effusion. I am unable to assess the pulmonary vasculature due to the degree of inspiration. Tomas Randall Jr., MD Abdomen/Pelvis CT 06/12/17 0000 Signed Impressions: Service Date/Time: May 16:53 - CONCLUSION: 1. Apple core type lesion worrisome for colon cancer involving the sigmoid colon causing obstruction and worsening bowel gas pattern with multiple loops of borderline dilated air-containing small bowel now noted with multiple air-fluid levels. The degree of colonic distention is not significantly changed. Findings there are concerning for partial bowel obstruction. 2. Inflammatory change remains greatest in right side of the abdomen and pelvis. 3. New small pleural effusions with consolidation in both posterior lung bases. 4. A small amount of ascitic fluid is present which is increased from the prior study as well. Dr. Sanchez was notified of these findings. Daryl Rene MD Abdomen X-Ray 06/12/17 0000 Signed Impressions: Service Date/Time: May 17:10 - CONCLUSION: Gaseous distention of the colon as above. There is possible obstruction in the distal sigmoid. Mika Curry MD Objective Remarks GENERAL: This is a well-nourished, well-developed patient, in no apparent distress. CARDIOVASCULAR: Regular rate and regular rhythm without murmurs, gallops, or rubs. RESPIRATORY: Clear to auscultation. Breath sounds equal bilaterally. No wheezes , rales, or rhonchi. GASTROINTESTINAL: Abdomen soft, covered with clean dressing. MUSCULOSKELETAL: Extremities without clubbing, cyanosis, or edema. NEURO: Alert & Oriented x4 to person, place, time, situation. Moves all ext x4 Procedures EGD colonoscopy Low anterior resection with primary anastomosis and takedown of the splenic flexure. Medications and IVs Current Medications Sodium Chloride (NS Flush) 2 ml UNSCH PRN IV FLUSH FLUSH AFTER USING IV ACCESS ; Start 06/09/17 at 00:30 Sodium Chloride (NS Flush) 2 ml BID IV FLUSH Last administered on 06/20/17 07: 43; Start 06/09/17 at 09:00 Ondansetron HCl (Zofran Inj) 4 mg Q6H PRN IVP NAUSEA OR VOMITING Last administered on 06/11/17 08:12; Start 06/09/17 at 00:30 Naloxone HCl (Narcan Inj) 0.4 mg UNSCH PRN IV SEE LABEL COMMENTS; Start at 00:30 Flumazenil (Romazicon Inj) 0.2 mg Q1M PRN IV PUSH SEE LABEL COMMENTS; Start at 00:30 Lorazepam (Ativan) 1 mg Q4H PRN PO CIWA 8 - 10 Last administered on 06/09/17 17:52; Start 06/09/17 at 00:30 Lorazepam (Ativan Inj) 1 mg Q4H PRN IV PUSH CIWA 8 - 10; Start 06/09/17 at 00: 30 Lorazepam (Ativan) 2 mg Q2H PRN PO CIWA 11-14; Start 06/09/17 at 00:30 Lorazepam (Ativan Inj) 2 mg Q2H PRN IV PUSH CIWA 11-14; Start 06/09/17 at 00:30 Lorazepam (Ativan Inj) 2 mg Q1H PRN IV PUSH CIWA 15-20; Start 06/09/17 at 00:30 Lorazepam (Ativan Inj) 2 mg Q15M PRN IV PUSH CIWA > 20; Start 06/09/17 at 00:30 Piperacillin Sod/ Tazobactam Sod 50 ml @ 100 mls/hr Q6HR IV Last administered on 06/18/17 05:02; Start 06/09/17 at 06:00; Stop 06/18/17 at 11:46; Status DC Potassium Chloride/Sodium Chloride 1,000 ml @ 100 mls/hr Q10H IV Last administered on 06/12/17 08:45; Start 06/09/17 at 00:45; Stop 06/12/17 at 11:09 ; Status DC Morphine Sulfate (Morphine Inj) 2 mg Q3H PRN IV PUSH PAIN SCALE 5 TO 10 Last administered on 06/09/17 09:39; Start 06/09/17 at 00:45; Stop 06/09/17 at 12:25 ; Status DC Pneumococcal Polyvalent Vaccine (Pneumovax-23 Inj) 25 mcg ONCE ONCE IM ; Start 06/10/17 at 09:00; Stop 06/10/17 at 09:01; Status DC Influenza Virus Vaccine (Flu (Quadrivalent) Vaccine Inj) 0.5 ml ONCE ONCE IM ; Start 06/10/17 at 09:00; Stop 06/10/17 at 09:01; Status Cancel Pantoprazole Sodium (Protonix Inj) 40 mg Q24H IV PUSH Last administered on 06/11 08:09; Start 06/09/17 at 11:00; Stop 06/12/17 at 11:10; Status DC Morphine Sulfate (Morphine Inj) 4 mg ONCE ONCE IV PUSH Last administered on 13:49; Start 06/09/17 at 12:30; Stop 06/09/17 at 12:31; Status DC Morphine Sulfate (Morphine Inj) 4 mg Q3H PRN IV PUSH PAIN SCALE 5 TO 10 Last administered on 06/11/17 17:55; Start 06/09/17 at 16:00; Stop 06/11/17 at 18:42 ; Status DC Pantoprazole Sodium (Protonix Inj) 40 mg Q24H IV PUSH ; Start 06/09/17 at 13:45 ; Status UNV Multivitamins 10 ml/Folic Acid 1 mg/Sodium Chloride 510.2 ml @ 125 mls/hr Q24H IV Last administered on 06/13/17 17:00; Start 06/09/17 at 17:00; Stop at 16:59; Status DC Thiamine HCl 100 mg/Sodium Chloride 101 ml @ 100 mls/hr Q24H IV Last administered on 06/11/17 20:31; Start 06/09/17 at 17:00; Stop 06/12/17 at 09:59 ; Status DC Thiamine HCl (Vitamin B1) 100 mg DAILY PO Last administered on 06/12/17 10:17 ; Start 06/10/17 at 09:00; Status Future Hold Enalaprilat (Vasotec Inj) 1.25 mg Q6H PRN IV PUSH SBP> OR = 180, DBP> OR = 100 Last administered on 06/13/17 11:55; Start 06/09/17 at 16:00; Stop at 18:24; Status DC Potassium Chloride (KCl) 20 meq ONCE ONCE PO Last administered on 06/10/17 11 :33; Start 06/10/17 at 11:00; Stop 06/10/17 at 11:01; Status DC Lisinopril (Prinivil) 10 mg DAILY PO Last administered on 06/20/17 07:43; Start 06/10/17 at 11:00; Status Future hold Al Hydrox/Mg Hydrox/Simethicone (Mag-Al Plus Susp Liq) 30 ml ONCE ONCE PO Last administered on 06/10/17 11:56; Start 06/10/17 at 12:15; Stop 06/10/17 at 12:16; Status DC Al Hydrox/Mg Hydrox/Simethicone (Mag-Al Plus Susp Liq) 30 ml Q6H PRN PO DYSPEPSIA OR HEARTBURN; Start 06/10/17 at 17:00 Propofol (Diprivan 200 Mg/20 ml Inj) 140 mg STK-MED ONCE IV PUSH ; Start at 11:09; Stop 06/11/17 at 11:10; Status DC Morphine Sulfate (Morphine Inj) 2 mg Q4H PRN IV BREAKTHROUGH PAIN Last administered on 06/13/17 09:16; Start 06/11/17 at 19:00; Stop 06/13/17 at 12:05 ; Status DC Acetaminophen/ Hydrocodone Bitart (Elkins 5-325 Mg) 1 tab Q4H PRN PO PAIN SCALE 1-5; Start 06/11/17 at 19:00; Stop 06/13/17 at 12:04; Status DC Acetaminophen/ Hydrocodone Bitart (Elkins 10-325 Mg) 1 tab Q4H PRN PO PAIN SCALE 6-10 Last administered on 06/13/17 07:10; Start 06/11/17 at 19:00; Stop 06/13/17 at 12:04; Status DC Clonidine (Catapres) 0.1 mg Q6H PRN PO SBP> OR = 180, DBP> OR = 100 Last administered on 06/13/17 00:34; Start 06/12/17 at 08:00; Stop 06/13/17 at 12:06 ; Status DC Pantoprazole Sodium (Protonix) 40 mg DAILY PO Last administered on 06/12/17 12 :27; Start 06/12/17 at 11:15; Stop 06/13/17 at 12:05; Status DC Polyethylene Glycol (Miralax) 17 gm DAILY PO Last administered on 06/12/17 12: 27; Start 06/12/17 at 11:30; Stop 06/13/17 at 12:05; Status DC Senna/Docusate Sodium (Flor-Colace) 1 tab BID PO Last administered on 20:46; Start 06/12/17 at 21:00; Stop 06/13/17 at 12:04; Status DC Magnesium Hydroxide (Milk Of Magnesia Liq) 30 ml Q12H PRN PO MILD - MODERATE CONSTIPATION; Start 06/12/17 at 15:00; Stop 06/13/17 at 12:05; Status DC Sennosides (Senokot) 17.2 mg Q12H PRN PO MODERATE - SEVERE CONSTIPATION; Start 06/12/17 at 15:00; Stop 06/13/17 at 12:05; Status DC Bisacodyl (Dulcolax Supp) 10 mg DAILY PRN RECTAL SEVERE CONSITIPATION; Start at 15:00; Stop 06/13/17 at 12:04; Status DC Lactulose (Lactulose Liq) 30 ml DAILY PRN PO SEVERE CONSITIPATION Last administered on 06/12/17 15:19; Start 06/12/17 at 15:00; Stop 06/13/17 at 12:05 ; Status DC Atenolol (Tenormin) 25 mg DAILY PO Last administered on 06/13/17 09:15; Start 06/12/17 at 15:00; Status Future Hold Hydromorphone HCl (Dilaudid Pf Inj) 0.5 mg ONCE ONCE IV PUSH Last administered on 06/12/17 16:28; Start 06/12/17 at 16:15; Stop 06/12/17 at 16:16 ; Status DC Iohexol (Omnipaque 350 Inj) 69 ml STK-MED ONCE IV Last administered on 17:08; Start 06/12/17 at 17:08; Stop 06/12/17 at 17:09; Status DC Diatrizoate Meglum/ Diatrizoate Sod ( Gastroview Liq) 18 ml ONCE ONCE PO Last administered on 06/12/17 20:48; Start 06/12/17 at 16:22; Stop 06/12/17 at 18:57; Status DC Sodium Chloride 1,000 ml @ 100 mls/hr Q10H IV Last administered on 06/14/17 06:10; Start 06/13/17 at 01:45; Stop 06/14/17 at 07:01; Status DC Morphine Sulfate (Morphine Inj) 4 mg Q4H PRN IV PAIN SCALE 5 TO 10 Last administered on 06/15/17 13:31; Start 06/13/17 at 15:00; Stop 06/15/17 at 14:55 ; Status DC Pantoprazole Sodium (Protonix Inj) 40 mg Q24H IV PUSH Last administered on 06/17 14:50; Start 06/13/17 at 13:00; Stop 06/18/17 at 11:46; Status DC Clonidine (Catapres-Tts 0.1mg Patch.7d) 1 patch Q7D T-DERMAL Last administered on 06/13/17 16:14; Start 06/13/17 at 14:00 Acetaminophen (Ofirmev Inj) 1,000 mg STK-MED ONCE IV Last administered on 13:07; Start 06/13/17 at 13:02; Stop 06/13/17 at 13:03; Status DC Midazolam HCl (Versed Inj) 2 mg STK-MED ONCE .ROUTE Last administered on 13:04; Start 06/13/17 at 13:02; Stop 06/13/17 at 13:03; Status DC Dexamethasone Sodium Phosphate (Decadron Inj) 4 mg STK-MED ONCE .ROUTE Last administered on 06/13/17 13:05; Start 06/13/17 at 13:02; Stop 06/13/17 at 13:03 ; Status DC Famotidine (Pepcid Inj) 20 mg STK-MED ONCE .ROUTE Last administered on 13:03; Start 06/13/17 at 13:02; Stop 06/13/17 at 13:03; Status DC Labetalol HCl (*TRANDATE INJ PERIprocedural Use ONLY) 100 mg STK-MED ONCE .ROUTE Last administered on 06/13/17 14:38; Start 06/13/17 at 14:38; Stop at 14:39; Status DC Fentanyl Citrate (fentaNYL INJ) 250 mcg STK-MED ONCE .ROUTE ; Start 06/13/17 at 14:40; Stop 06/13/17 at 14:41; Status DC Iohexol (Omnipaque 350 Inj) 200 ml STK-MED ONCE OTHER Last administered on 06/13 13:20; Start 06/13/17 at 13:20; Stop 06/13/17 at 14:42; Status DC Albuterol Sulfate (*ALBUTEROL NEB PERIprocedure ONLY) 2.5 mg STK-MED ONCE NEB Last administered on 06/13/17 14:53; Start 06/13/17 at 14:53; Stop 06/13/17 at 14:54; Status DC Propofol (Diprivan 200 Mg/20 ml Inj) 200 mg STK-MED ONCE IV ; Start 06/13/17 at 15:16; Stop 06/13/17 at 15:17; Status DC Lactated Ringer's (Lr 1000 ml Inj) 1,000 ml STK-MED ONCE IV ; Start 06/13/17 at 14:40; Stop 06/13/17 at 15:18; Status DC Succinylcholine Chloride (Quelicin Inj) 200 mg STK-MED ONCE IV ; Start 06/13/17 at 14:40; Stop 06/13/17 at 15:19; Status DC Phenylephrine HCl (Neosynephrine/ NS 1000 Mcg/10ml Syr) 1,000 mcg STK-MED ONCE IV ; Start 06/13/17 at 14:40; Stop 06/13/17 at 15:19; Status DC Ondansetron HCl (Zofran Inj) 4 mg STK-MED ONCE IV PUSH ; Start 06/13/17 at 14:40 ; Stop 06/13/17 at 15:19; Status DC Miscellaneous Information ALL NURSING DEPARTME... UNSCH PRN .XX SEE LABEL COMMENTS; Start 06/13/17 at 16:45; Stop 06/14/17 at 16:44; Status DC Labetalol HCl (Trandate Inj) 20 mg Q3H PRN IV PUSH SBP > 160 Last administered on 06/14/17 02:49; Start 06/13/17 at 18:30; Stop 06/14/17 at 06:58; Status DC Enalaprilat (Vasotec Inj) 2.5 mg Q6H PRN IV PUSH SBP > 170 Last administered on 06/14/17 04:18; Start 06/13/17 at 18:30; Stop 06/14/17 at 06:58; Status DC Metoprolol Tartrate (Lopressor Inj) 5 mg Q6HR IV PUSH Last administered on 06/16 12:32; Start 06/13/17 at 18:30; Stop 06/16/17 at 17:10; Status DC Heparin Sodium (Porcine) (Heparin Inj) 5,000 units Q8H SQ Last administered on 06/14/17 08:27; Start 06/14/17 at 09:00; Stop 06/14/17 at 17:57; Status DC Enalaprilat (Vasotec Inj) 1.25 mg Q6H PRN IV PUSH SBP > 170; Start 06/14/17 at 12:30 Labetalol HCl (Trandate Inj) 10 mg Q1HR PRN IV PUSH SBP>160, DBP>90, HR>65 Last administered on 06/14/17 19:58; Start 06/14/17 at 07:00; Stop 06/19/17 at 09:47; Status DC Hydralazine HCl (Apresoline Inj) 10 mg Q1HR PRN IV PUSH SBP>160, DBP>90 Last administered on 06/16/17 14:12; Start 06/14/17 at 07:00; Stop 06/19/17 at 09:47 ; Status DC Nitroglycerin (Nitroglycerin 2% Oint) 2 inch Q6HR PRN TOPICAL SBP>160, DBP>90; Start 06/14/17 at 07:00 Enalaprilat (Vasotec Inj) 1.25 mg Q8H IV PUSH Last administered on 06/20/17 07:22; Start 06/14/17 at 07:00 Thiamine HCl 100 mg/Sodium Chloride 101 ml @ 101 mls/hr DAILY IV Last administered on 06/18/17 08:33; Start 06/14/17 at 09:00; Stop 06/19/17 at 09:47 ; Status DC Potassium Chloride/Sodium Chloride 1,000 ml @ 100 mls/hr Q10H IV Last administered on 06/15/17 02:28; Start 06/14/17 at 07:00; Stop 06/15/17 at 20:13 ; Status DC Potassium Chloride 100 ml @ 100 mls/hr Q1H IV Last administered on 06/14/17 08:26; Start 06/14/17 at 07:00; Stop 06/14/17 at 10:01; Status DC Albuterol/ Ipratropium (Duoneb Neb) 1 ampule Q6HR NEB NEB Last administered on 06/14/17 09:47; Start 06/14/17 at 10:00; Stop 06/18/17 at 10:04; Status DC Albuterol Sulfate (Albuterol Neb) 2.5 mg Q2HR NEB PRN NEB DYSPNEA; Start at 07:00 Polyethylene Glycol/ Electrolytes (Colyte Liq) 4,000 ml ONCE ONCE NG Last administered on 06/14/17 10:40; Start 06/14/17 at 10:15; Stop 06/14/17 at 10:31 ; Status DC Piperacillin Sod/ Tazobactam Sod 100 ml @ 200 mls/hr ONCE ONCE IV ; Start at 09:00; Stop 06/15/17 at 09:29; Status UNV Potassium Chloride (KCl) 40 meq ONCE ONCE PO Last administered on 06/15/17 05 :46; Start 06/15/17 at 05:45; Stop 06/15/17 at 05:46; Status DC Potassium Chloride 100 ml @ 100 mls/hr Q1H IV Last administered on 06/15/17 10:45; Start 06/15/17 at 05:45; Stop 06/15/17 at 11:44; Status DC Potassium Chloride (KCl Powder) 80 meq NOW NG Last administered on 06/15/17 06 :56; Start 06/15/17 at 07:00; Stop 06/15/17 at 09:00; Status DC Bupivacaine HCl/ Epinephrine Bitart (Sensorcaine-Epinephrine 0.25% Inj) 50 ml STK-MED ONCE .ROUTE ; Start 06/15/17 at 07:04; Stop 06/15/17 at 07:05; Status DC Dextrose (D50w (Vial) Inj) 50 ml UNSCH PRN IV HYPOGLYCEMIA-SEE COMMENTS; Start 06/15/17 at 07:30 Glucagon (Glucagon Inj) 1 mg STAT PRN IM HYPOGLYCEMIA-SEE COMMENTS; Start 06/15 at 07:30 Fentanyl Citrate (fentaNYL INJ) 500 mcg STK-MED ONCE .ROUTE ; Start 06/15/17 at 09:21; Stop 06/15/17 at 12:08; Status DC Enalaprilat (*VASOTEC INJ PERIprocedural Use ONLY) 1.25 mg STK-MED ONCE .ROUTE ; Start 06/15/17 at 11:58; Stop 06/15/17 at 12:19; Status DC Labetalol HCl (*TRANDATE INJ PERIprocedural Use ONLY) 100 mg STK-MED ONCE .ROUTE ; Start 06/15/17 at 11:58; Stop 06/15/17 at 12:19; Status DC Morphine Sulfate (*morphine INJ PERIprocedure ONLY) 8 mg STK-MED ONCE .ROUTE ; Start 06/15/17 at 12:12; Stop 06/15/17 at 12:20; Status DC Morphine Sulfate (*morphine INJ PERIprocedure ONLY) 8 mg STK-MED ONCE .ROUTE ; Start 06/15/17 at 12:45; Stop 06/15/17 at 12:46; Status DC Lactated Ringer's 1,000 ml @ 150 mls/hr Q6H IV Last administered on 06/16/17 08:00; Start 06/15/17 at 14:00; Stop 06/16/17 at 09:59; Status DC Miscellaneous Information ALL NURSING DEPARTME... UNSCH PRN .XX SEE LABEL COMMENTS; Start 06/15/17 at 14:15; Stop 06/16/17 at 14:14; Status DC Enoxaparin Sodium (Lovenox Inj) 40 mg Q24H SQ Last administered on 06/19/17 16 :26; Start 06/16/17 at 14:00 Morphine Sulfate (Morphine Inj) 4 mg Q2H PRN IV PAIN SCALE 7 TO 10 Last administered on 06/16/17 17:57; Start 06/15/17 at 15:00 Sodium Chloride 1,000 ml @ 40 mls/hr Q24H IV Last administered on 06/18/17 15 :11; Start 06/16/17 at 10:00; Stop 06/19/17 at 09:47; Status DC Diatrizoate Meglum/ Diatrizoate Sod ( Gastroview Liq) 720 ml STK-MED ONCE RECTAL Last administered on 06/13/17 10:11; Start 06/13/17 at 10:11; Stop at 10:15; Status DC Metoprolol Tartrate (Lopressor) 50 mg Q8HR PO Last administered on 06/18/17 05 :02; Start 06/16/17 at 17:15; Stop 06/18/17 at 11:46; Status DC Furosemide (Lasix Inj) 40 mg ONCE ONCE IV PUSH Last administered on 06/17/17t 18:04; Start 06/17/17 at 17:00; Stop 06/17/17 at 17:50; Status DC Oxycodone/ Acetaminophen (Percocet 5-325 Mg) 1 tab Q4H PRN PO pain 3-6; Start 06/19/17 at 09:45 A/P Assessment and Plan A/P colon cancer Status post sigmoid stents secondary to obstructing mass Sigmoid diverticulosis Status post IR placement of sigmoid stent 06/13. s/p Low anterior resection with primary anastomosis and takedown of the splenic flexure. management per surgery. pathology with adenocarcinoma- oncology consult appreciated; f/u as outpatient. Postprocedure respiratory failure resolved COPD History of EtOH use History of THC use History of cataracts Patient's been treated with thiamine, folic acid and multivitamin. continue pain control. Hypertension continue metoprolol f/u as outpatient. Monitor urine output Normocytic anemia H/H stable. Hypokalemia Replaced. Prophylaxis - DVT subq Lovenox Discharge Planning dc home today with f/u by pcp,surgery and oncology. see med list. d/w the patient and RN. time spent 35 min. Eda Palm MD Jun 20, 2017 10:32
[2017-06-20] MEDS ORDERED: MULT1TAB46 PO (10:35)
[2017-06-20] MEDS ORDERED: LISI10TA3 PO (10:35)
[2017-06-20] MEDS ORDERED: GNP100TA3 PO (10:35)
--- NOTE | 2017-06-20 10:36 | HHI.DS ---
Discharge Summary Admission Date Jun 09, 2017 at 01:26 Discharge Date: Jun 20, 2017 Admitting Diagnosis (1) Colon cancer ICD Code: C18.9 - Malignant neoplasm of colon, unspecified Diagnosis: Principal (2) Hypokalemia ICD Code: E87.6 - Hypokalemia Diagnosis: Secondary Status: Acute (3) Hyponatremia ICD Code: E87.1 - Hypo-osmolality and hyponatremia Diagnosis: Secondary Status: Acute (4) Hypertension ICD Code: I10 - Essential (primary) hypertension Diagnosis: Secondary Status: Chronic (5) Alcohol abuse ICD Code: F10.10 - Alcohol abuse, uncomplicated Diagnosis: Secondary Status: Chronic Procedures EGD colonoscopy Low anterior resection with primary anastomosis and takedown of the splenic flexure. Brief History - From Admission Written by Karen Dhaliwal, acting as scribe for Dr. Chavez on 06/09/17 at 14:41. This note was transcribed by scribe CLAUDIA Bernal. I, Dr. Nash Chavez personally performed the history, physical exam, and medical decision making; and confirmed the accuracy of the information in the transcribed note. Authenticated by Dr. Nash Chavez on 06/09/17 at 17:22. 72-year-old male with no significant past medical history, presents with a 1 week history of abdominal pain. He locates the pain mostly to the RLQ, described as sharp stabbing 10/10 pain. He denies any fevers or chills. He had some nausea and vomited x1 at home. He reports occasional diarrhea but mostly normal nonbloody dark brown stools. He reports more frequent BMs recently, had 3 BMs since his arrival to the hospital. The patient denies any chest pain, palpitations, or shortness of breath. He does report occasional left facial numbness; denies headache, lightheadedness, or dizziness. He occasionally has some difficulty urinating, but denies any burning or hematuria. The patient states he's otherwise fairly healthy and he hasn't been in the hospital since age 7. He denies ever having an EGD or colonoscopy. He denies taking any medications on a regular basis. He does drink alcohol, 4-6beers daily. He also smokes marijuana occasionally. CBC/BMP: 06/19/17 0604 06/16/17 0507 Significant Findings Laboratory Tests Test 06/19/17 06:04 Red Blood Count 3.49 MIL/MM3 (4.50-5.90) Hemoglobin 11.0 GM/DL (13.0-17.0) Hematocrit 32.2 % (39.0-51.0) Platelet Count 471 TH/MM3 (150-450) Imaging Last Impressions GI Procedure 06/13/17 0000 Signed Impressions: Service Date/Time: Tuesday, June 13, 2017 13:43 - CONCLUSION: 1. Uncomplicated stenting of an obstructing mass in the distal sigmoid colon. Mika Curry MD Enema w/Water Soluble 06/13/17 0000 Signed Impressions: Service Date/Time: Tuesday, June 13, 2017 09:41 - CONCLUSION: Apple core type lesion involving the sigmoid colon is characteristic of colon cancer. Daryl Rene MD Chest X-Ray 06/13/17 0000 Signed Impressions: Service Date/Time: Tuesday, June 13, 2017 15:53 - CONCLUSION: Bibasilar infiltrates with small left effusion. I am unable to assess the pulmonary vasculature due to the degree of inspiration. Tomas Randall Jr., MD Abdomen/Pelvis CT 06/12/17 0000 Signed Impressions: Service Date/Time: May 16:53 - CONCLUSION: 1. Apple core type lesion worrisome for colon cancer involving the sigmoid colon causing obstruction and worsening bowel gas pattern with multiple loops of borderline dilated air-containing small bowel now noted with multiple air-fluid levels. The degree of colonic distention is not significantly changed. Findings there are concerning for partial bowel obstruction. 2. Inflammatory change remains greatest in right side of the abdomen and pelvis. 3. New small pleural effusions with consolidation in both posterior lung bases. 4. A small amount of ascitic fluid is present which is increased from the prior study as well. Dr. Sanchez was notified of these findings. Daryl Rene MD Abdomen X-Ray 06/12/17 0000 Signed Impressions: Service Date/Time: May 17:10 - CONCLUSION: Gaseous distention of the colon as above. There is possible obstruction in the distal sigmoid. Mika Curry MD PE at Discharge GENERAL: This is a well-nourished, well-developed patient, in no apparent distress. CARDIOVASCULAR: Regular rate and regular rhythm without murmurs, gallops, or rubs. RESPIRATORY: Clear to auscultation. Breath sounds equal bilaterally. No wheezes , rales, or rhonchi. GASTROINTESTINAL: Abdomen soft, covered with clean dressing. MUSCULOSKELETAL: Extremities without clubbing, cyanosis, or edema. NEURO: Alert & Oriented x4 to person, place, time, situation. Moves all ext x4 Hospital Course colon cancer Status post sigmoid stents secondary to obstructing mass Sigmoid diverticulosis Status post IR placement of sigmoid stent 06/13. s/p Low anterior resection with primary anastomosis and takedown of the splenic flexure. management per surgery. pathology with adenocarcinoma- oncology consult appreciated; f/u as outpatient. Postprocedure respiratory failure resolved COPD History of EtOH use History of THC use History of cataracts Patient's been treated with thiamine, folic acid and multivitamin. continue pain control. Hypertension continue metoprolol f/u as outpatient. Monitor urine output Normocytic anemia H/H stable. Hypokalemia Replaced. Prophylaxis - DVT subq Lovenox Pt Condition on Discharge: Good Discharge Disposition: Discharge Home Discharge Time: > 30 minutes Discharge Instructions DIET: Follow Instructions for: As Tolerated, No Restrictions Activities you can perform: Regular-No Restrictions Follow up Referrals: Oncology PCP Follow-up Surgical New Medications: Multiple Vitamin (Multi Vitamin Daily) 1 Tab Tab 1 TAB PO DAILY for vitamin for 30 Days, TAB 0 Refills Lisinopril (Lisinopril) 10 Mg Tab 10 MG PO DAILY for hypertension for 30 Days, TAB 0 Refills Oxycodone-Acetaminophen (Oxycodone-Acetaminophen) 5-325 mg Tab 1 TAB PO Q4H PRN for pain 3-6, #20 TAB Thiamine HCl (Gnp Vitamin B-1) 100 Mg Tab 100 MG PO DAILY for vitamin for 30 Days, TAB 0 Refills Eda Palm MD Jun 20, 2017 10:36
[2017-06-20] MEDS ORDERED: OXYC1TAB63 PO (10:40)
== END 2017-06-20 12:31 | disposition home or self-care (01) | DRG 329 ==
LOC: NEDDLT 01:19 → NEPHCDU 01:26 → HOCA 06-10 13:14 → N03B 06-13 16:42 → HPAC 06-13 22:54 → N03B 06-14 01:06 → N07B 06-16 18:26
PROVIDERS: ADMIT Family Medicine; ATTEND Internal Medicine
PROC: 0DB38ZX Excision of Lower Esophagus, Via Natural or Artificial Opening Endoscopic, Diagnostic (ICD-10-PCS; 2017-06-11)
PROC: 0DJD8ZZ Inspection of Lower Intestinal Tract, Via Natural or Artificial Opening Endoscopic (ICD-10-PCS; 2017-06-13)
PROC: 0D7N8DZ Dilation of Sigmoid Colon with Intraluminal Device, Via Natural or Artificial Opening Endoscopic (ICD-10-PCS; 2017-06-13)
PROC: 0DTG0ZZ Resection of Left Large Intestine, Open Approach (ICD-10-PCS; principal; 2017-06-15 09:25)
DX: C19 Malignant neoplasm of rectosigmoid junction (principal); J95.821 Acute postprocedural respiratory failure; K56.69 Other intestinal obstruction; E87.1 Hypo-osmolality and hyponatremia; J44.9 Chronic obstructive pulmonary disease, unspecified; D64.9 Anemia, unspecified; I10 Essential (primary) hypertension; E87.6 Hypokalemia; F10.10 Alcohol abuse, uncomplicated; E87.70 Fluid overload, unspecified; K21.0 Gastro-esophageal reflux disease with esophagitis; K57.30 Diverticulosis of large intestine without perforation or abscess without bleeding
CPT/HCPCS: 71010; 71020; 74000; 74177; 74270; 76000; 80048; 80053; 81001; 82378; 82948; 83690; 83735; 84100; 84132; 85025; 85027; 85610; 85730; 86301; 86850; 86900; 86901; 86920; 87641; 88305; 88309; 88312; 93005; 94640; 94664; 96365; 96375; C1769; C2625; C9113; J0131; J0330; J0360; J1100; J1170; J1644; J1650; J1940; J2060; J2250; J2270; J2370; J2405; J2543; J2710; J3010; J3411; J3480; J7030; J7040; J7120; J7613; Q9963; Q9967